=== PATIENT | female | born 1950 | race Caucasian/White ===

== ENCOUNTER 2018-03-08 12:57 | Emergency (ER) | payer MEDICARE, SELFPAY ==
[2018-03-08 13:26] VITALS: BP 152/67; PULSE 78; RESP 18; TEMP 36.6
--- NOTE | 2018-03-08 14:27 | DI.RAD_ITS ---
SYMPTOM/DIAGNOSIS: PAIN, KNIFE INJURY LEFT HAND: Soft tissue laceration is seen. No foreign body or fracture is identified. Degenerative changes greatest of the first carpal/metacarpal joint. IMPRESSION: Soft tissue laceration.
[2018-03-08] MEDS: Lidocaine/Epinephri/Tetracaine Topical Gel 3 ML TP (14:44)
--- NOTE | 2018-03-08 15:23 | DI.VRAD_ITS ---
EXAM: XR Left Hand Complete, 3 or more Views EXAM DATE/TIME: 03/08/2018 2:28 PM CLINICAL HISTORY: 68 years old, female; Pain; Hand; Left TECHNIQUE: XR Left hand 3 or more views. COMPARISON: No relevant prior studies available. FINDINGS: Bones/joints: Diffuse osteopenia. No fracture or dislocation. 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 Soft tissues: Laceration of the hand adjacent to the second metacarpal distal metaphysis. No radiopaque metallic foreign body. IMPRESSION: 1. Soft tissue laceration. 2. No fracture. Dictated and Authenticated by: Giovanny Kate MD. Ordering:TRINIDAD Langley MD
--- NOTE | 2018-03-08 16:04 | W.ED.GENAD ---
Discharge Plan Disposition Patient Disposition: HOME Discharge Details Chief Complaint: Laceration Clinical Impression: Laceration of left hand, Syncope Reason For Visit: lac / fainted vomited Primary Care Provider: Eliezer Pimentel ED Provider: Shivam Berger Home Meds and New Rx's Prescriptions: Continued aspirin 325 mg Tablet 325 mg PO DAILY AM RF: 0 cetirizine [Zyrtec] 10 mg Tablet 10 mg PO RF: 0 Discharge Instructions Instructions: Laceration (ED), Syncope (ED) Additional Instructions: Please follow-up with your primary care physician. Call on Saturday to schedule an appointment. Return to the emergency department or see your primary care physician for suture removal in 10-12 days. Keep wound clean and dry. Return to the ER for any worsening or new concerning symptoms. Referrals: Eliezer Pimentel MD [Primary Care Provider] - Discharge Data Discharge Date/Time-TO BE ENTERED AT DEPARTURE: 03/08/18 16:15 Medical Decision Making 68-year-old female presents after puncture wound to her left hand and then syncopal episode while she was rinsing it out. Digital nerve function intact. digital flexor tendons intact. Suspect vagal induced syncope. Screening EKG was reviewed and interpreted by me: Normal sinus rhythm 74 bpm, normal axis, [place] interval 192, QTC 433, nondiagnostic. X-ray of the left hand was reviewed and interpreted by radiology: Soft tissue laceration, no fracture, no radiopaque metallic foreign body. Wound was anesthetized with topical LET, irrigated with copious sterile saline and explored. Primary closure was performed without complication. Patient was observed here in the emerge department and had no recurrent dizziness or syncope. Disposition decision was made weighing the risks and benefits of hospitalization versus outpatient treatment, the risk for further decompensation, and the patient's wishes. The patient was stable and requested discharge. Prior to discharge, my usual and customary return precautions were reviewed with the patient - this included follow-up instructions and reason to return to the emergency department if condition worsens, does not improve as expected, or other new concerns arise. HPI General Mode of arrival: ambulatory. Date/Time Provider Initiated Documentation: 03/08/18 14:13. Limitations to Documentation: no limitations. Information obtained by: patient. HPI Narrative: 68-year-old female presents after puncture wound to her left hand and then syncopal episode while she was rinsing it out. Patient states she cut her left hand with a steak knife accidentally by 1-2 hours prior to arrival. She attempted to irrigate the wound with tap water and suddenly felt faint. She sat down in a chair, had brief loss of consciousness with vomiting. Patient took a brief nap after the episode and then sought care here. She denies associated chest pain. No shortness of breath. No leg swelling or calf pain. No palpitations. No headache or focal numbness or weakness. No abdominal pain. Wound was bleeding. Bleeding moderate and now stopped. Related Data Home Medications Medication Instructions Recorded Confirmed aspirin 325 mg PO DAILY AM 03/08/18 03/08/18 cetirizine [Zyrtec] 10 mg PO 03/08/18 General Stated Complaint: Laceration MITA: 3 Review of Systems Review of Systems All systems reviewed & are unremarkable except as noted in HPI and below PFSH Social History Smoking and Tabacco status: Former Tobacco Use Exam Const General: cooperative and no acute distress HENMT Head: normocephalic and atraumatic Mouth: moist mucous membranes Eyes Conjunctivae: normal conjunctivae Sclera: normal sclerae EOM: EOM intact bilaterally Neck Neck: trachea midline and supple Resp Auscultation: clear to auscultation bilaterally, no rales, no rhonchi and no wheezes Cardio Jugular venous pressure: no JVD Rate: regular rate and not tachycardic Rhythm: regular rhythm GI Palpation: soft, not firm, no guarding, no masses, not rigid and nontender Skin General skin exam: no rashes or lesions noted Neuro General: alert, awake, oriented x3 and tone normal Extrem General: no calf tenderness bilaterally and no edema Left upper extremity: hand Details: normal capillary refill, neuromotor exam normal, neurosensory exam normal, tendon exam normal, normal ROM of fingers and laceration (1cm palmar) Course Vital Signs Temperature 36.6 C 03/08/18 13:26 Pulse 78 03/08/18 13:26 Respiratory Rate 18 03/08/18 13:26 Blood Pressure 152/67 H 03/08/18 13:26 Temperature 36.6 C 03/08/18 13:26 Temperature Source Temporal Artery Scan 03/08/18 13:26 Pulse 78 03/08/18 13:26 Respiratory Rate 18 03/08/18 13:26 Respiratory Effort 03/08/18 13:32 Blood Pressure 152/67 H 03/08/18 13:26 Blood Pressure Position Sitting 03/08/18 13:26 Oxygen Delivery Method Room Air 03/08/18 13:26 Oxygen Flow Rate 0 03/08/18 13:26 Pain Level 5 03/08/18 15:43 Procedures Laceration Laceration 1: Site: hand Side (If applicable): left Size (cm): 1 Description: linear Depth: simple, single layer Local Anesthetic: other anesthetic Pre-repair: wound explored, irrigated extensively and deep structures intact Skin layer closed with: other (proline) Size (cm): 5-0 Number of sutures: 2 Technique: simple, interrupted
--- NOTE | 2018-03-08 16:08 | ED.GENADUL_ITS ---
Discharge Plan Disposition Patient Disposition: HOME Discharge Details Chief Complaint: Laceration Clinical Impression: Laceration of left hand, Syncope Reason For Visit: lac / fainted vomited Primary Care Provider: Eliezer Pimentel ED Provider: Shivam Berger Home Meds and New Rx's Prescriptions: Continued aspirin 325 mg Tablet 325 mg PO DAILY AM RF: 0 cetirizine [Zyrtec] 10 mg Tablet 10 mg PO RF: 0 Discharge Instructions Instructions: Laceration (ED), Syncope (ED) Additional Instructions: Please follow-up with your primary care physician. Call on Saturday to schedule an appointment. Return to the emergency department or see your primary care physician for suture removal in 10-12 days. Keep wound clean and dry. Return to the ER for any worsening or new concerning symptoms. Referrals: Eliezer Pimentel MD [Primary Care Provider] - Discharge Data Discharge Date/Time-TO BE ENTERED AT DEPARTURE: 03/08/18 16:15 Medical Decision Making 68-year-old female presents after puncture wound to her left hand and then syncopal episode while she was rinsing it out. Digital nerve function intact. digital flexor tendons intact. Suspect vagal induced syncope. Screening EKG was reviewed and interpreted by me: Normal sinus rhythm 74 bpm, normal axis, [place] interval 192, QTC 433, nondiagnostic. X-ray of the left hand was reviewed and interpreted by radiology: Soft tissue laceration, no fracture, no radiopaque metallic foreign body. Wound was anesthetized with topical LET, irrigated with copious sterile saline and explored. Primary closure was performed without complication. Patient was observed here in the emerge department and had no recurrent dizz iness or syncope. Disposition decision was made weighing the risks and benefits of hospitalization versus outpatient treatment, the risk for further decompensation, and the patient's wishes. The patient was stable and requested discharge. Prior to discharge, my usual and customary return precautions were reviewed with the patient - this included follow-up instructions and reason to return to the emergency department if condition worsens, does not improve as expected, or other new concerns arise. HPI General Mode of arrival: ambulatory . Date/Time Provider Initiated Documentation: 03/08/18 14:13 . Limitations to Documentation: no limitations . Information obtained by: patient . HPI Narrative: 68-year-old female presents after puncture wound to her left hand and then syncopal episode while she was rinsing it out. Patient states she cut her left hand with a steak knife accidentally by 1-2 hours prior to arrival. She attempted to irrigate the wound with tap water and suddenly felt faint. She sat down in a chair, had brief loss of consciousness with vomiting. Patient took a brief nap after the episode and then sought care here. She denies associated chest pain. No shortness of breath. No leg swelling or calf pain. No palpitations. No headache or focal numbness or weakness. No abdominal pain. Wound was bleeding. Bleeding moderate and now stopped. Related Data Home Medications Medication Instructions Recorded Confirmed aspirin 325 mg PO DAILY AM 03/08/18 03/08/18 cetirizine [Zyrtec] 10 mg PO 03/08/18 General Stated Complaint: Laceration MITA: 3 Review of Systems Review of Systems All systems reviewed & are unremarkable except as noted in HPI and below PFSH Social History Smoking and Tabacco status: Former Tobacco Use Exam Const General: cooperative and no acute distress HENMT Head: normocephalic and atraumatic Mouth: moist mucous membranes Eyes Conjunctivae: normal conjunctivae Sclera: normal sclerae EOM: EOM intact bilaterally Neck Neck: trachea midline and supple Resp Auscultation: clear to auscultation bilaterally, no rales, no rhonchi and no wheezes Cardio Jugular venous pressure: no JVD Rate: regular rate and not tachycardic Rhythm: regular rhythm GI Palpation: soft, not firm, no guarding, no masses, not rigid and nontender Skin General skin exam: no rashes or lesions noted Neuro General: alert, awake, oriented x3 and tone normal Extrem General: no calf tenderness bilaterally and no edema Left upper extremity: hand Details: normal capillary refill, neuromotor exam normal, neurosensory exam normal, tendon exam normal, normal ROM of fingers and laceration (1cm palmar) Course Vital Signs Temperature 36.6 C 03/08/18 13:26 Pulse 78 03/08/18 13:26 Respiratory Rate 18 03/08/18 13:26 Blood Pressure 152/67 H 03/08/18 13:26 Temperature 36.6 C 03/08/18 13:26 Temperature Source Temporal Artery Scan 03/08/18 13:26 Pulse 78 03/08/18 13:26 Respiratory Rate 18 03/08/18 13:26 Respiratory Effort 03/08/18 13:32 Blood Pressure 152/67 H 03/08/18 13:26 Blood Pressure Position Sitting 03/08/18 13:26 Oxygen Delivery Method Room Air 03/08/18 13:26 Oxygen Flow Rate 0 03/08/18 13:26 Pain Level 5 03/08/18 15:43 Procedures Laceration Laceration 1: Site: hand Side (If applicable): left Size (cm): 1 Description: linear Depth: simple, single layer Local Anesthetic: other anesthetic Pre-repair: wound explored, irrigated extensively and deep structures intact Skin layer closed with: other (proline) Size (cm): 5-0 Number of sutures: 2 Technique: simple, interrupted
== END 2018-03-08 16:15 | disposition home or self-care (01) ==
PROVIDERS: Emergency Provider Student in an Organized Health Care Education/Training Program; PCP General Practice
DX: S61.412A Laceration without foreign body of left hand, initial encounter (principal); R55 Syncope and collapse; W26.0XXA Contact with knife, initial encounter
CPT/HCPCS: 12001; 90471; 93005; 99283; 73130; 93010

== ENCOUNTER 2019-03-03 10:57 | Emergency (ER) | payer MEDICARE, SELFPAY ==
[2019-03-03 11:04] VITALS: BP 147/73; PULSE 97; RESP 16; TEMP 36.6; O2SAT 95
--- NOTE | 2019-03-03 11:55 | DI.RAD_ITS ---
EXAM: XR HIP PELVIS ADULT BL CLINICAL HISTORY: right groin pain TECHNIQUE: COMPARISON: No exams were available for comparison FINDINGS: Three views were obtained. Cartilaginous joint spaces of hips are fairly well maintained. Mild subc hondral sclerosis of the acetabula and femoral heads bilaterally. Moderate marginal osteophyte forma tion of the acetabula noted. No additional significant bony findings. IMPRESSION: Moderate DJD both hips, no other significant findings.
--- NOTE | 2019-03-03 11:58 | DI.RAD_ITS ---
EXAM: XR LUMBAR SPINE COMPLETE CLINICAL HISTORY: pain TECHNIQUE: COMPARISON: No exams were available for comparison FINDINGS: Five views were obtained. There is a moderate to severe right convex lumbar scoliosis. There is dis c space narrowing at L5-S1. Otherwise the intervertebral disc spaces appear fairly well maintained. No compression fracture seen. Severe hypertrophic degenerative changes noted involving the facet louann ints throughout the lumbar region. No evidence of spondylolysis or spondylolisthesis. Mild DJD noted involving both SI joints. IMPRESSION: Scoliosis and severe degenerative change, no evidence of acute fracture.
[2019-03-03] MEDS: Acetaminophen 500 MG TAB 1000 MG PO (12:18)
--- NOTE | 2019-03-03 12:34 | ED.GENADUL_ITS ---
Discharge Plan Disposition Patient Disposition: HOME Condition: Good Discharge Details Chief Complaint: Orthopedic Clinical Impression: Back pain with sciatica Primary Care Provider: Florentin Elliott ED Provider: Iza Jason Home Meds and New Rx's Prescriptions: New methylprednisolone [Medrol (Rodriguez)] 4 mg tablets,dose pack See Rx Instructions .ROUTE .COMPLEX Qty: 21 RF: 0 No Action aspirin 325 mg Tablet 325 mg PO DAILY AM RF: 0 cetirizine [Zyrtec] 10 mg Tablet 10 mg PO RF: 0 Discharge Instructions Instructions: Sciatica (ED) Additional Instructions: Ice or heat to the back for discomfort. Use Medrol Dosepak as prescribed. Hold additional ibuprofen or Naprosyn Use Tylenol for pain relief 1000 mg 3 times a day. Rest activities as tolerated. Follow-up with orthopedics for reevaluation as well as PCP as discussed. Consider use of a cane or assistive devices as discussed. Return for any worsening, concerns or alarming symptoms sooner if needed. Specific alarming concerns involve numbness of both legs and groin, inability to control your bowels or bladder, leg weakness, fevers, inability to ambulate. Stand Alone Forms: Physical Therapy Referral Referrals: Vicente Amaral MD [ [facility] STAFF PHYSICIAN] - Medical Decision Making Is a 69-year-old patient presenting for complaints of back pain with radiation to the right groin and leg specifically to the thigh and very intermittently toward the martin. Patient reports onset of back pain when gardening in the fall. Was diagnosed with sciatica by PCP recommended to take Aleve. Aleve somewhat helpful for short period of time then on relieving of discomfort. Patient does report worsening right thigh pain, pain with ambulation specifically. Pain relieved at rest. Patient denies any lower leg swelling or calf pain. No incontinence of urine or stool, no bilateral numbness. No red flags or cauda equina symptoms. Patient is nontoxic-appearing. Patient has had no imaging of her spine since onset of pain. Again denies any new injury or trauma. X-rays of spine reveals severe degenerative changes as well as L5-S1, scoliosis. No obvious compression fractures. Patient prefers use of a single crutch. Crutches were adjusted appropriately for her height. I did encourage use of a cane. Encourage physical therapy follow-up as well as orthopedic follow-up. Medrol Dosepak prescribed to help alleviate inflammatory and sciatic radicular pain. Rice encouraged. Encouraged prompt follow-up with PCP. Nothing to indicate neurosurgical emergency today. The patient was stable and requested discharge. Prior to discharge, my usual and customary return precautions were reviewed with the patient - this included follow-up instructions and reasons to return to the Emergency Department if conditions worsens, does not improve as expected, or other new concerns arise. HPI General Date/Time Provider Initiated Documentation: 03/03/19 10:58 . HPI Narrative: Is a 69-year-old patient presenting for complaints of several months of back pain with radiating symptoms into the right thigh and groin. Patient reports onset of back pain developed while she was gardening in September or October. Patient reports she saw her PCP was diagnosed with sciatica advised to take Aleve. Patient reports she has been taking Aleve. Patient reports initially Aleve was somewhat helpful and now she reports no relief with use of Aleve. Patient reports increase in right leg pain now becoming difficult to tolerate. Patient reports pain in her back is mild with radiation to the right groin and right thigh. Very intermittent and occasional radiating symptoms into the martin. Patient reports no new injury or trauma. Patient denies ill feeling whatsoever. Denies abdominal pain. Denies incontinence of urine or stool. Denies any changes in appetite or bowel movements. Denies any urinary changes. Patient reports no pain at rest. Pain in the right groin and thigh are only when bearing weight. Patient denies associated numbness, tingling or weakness. Does report sensation of leg giving out when ambulating but attributes this to pain. Related Data Home Medications Medication Instructions Recorded Confirmed aspirin 325 mg PO DAILY AM 03/08/18 03/03/19 cetirizine [Zyrtec] 10 mg PO 03/08/18 methylprednisolone [Medrol (Rodriguez)] See Rx Instructions .ROUTE 03/03/19 .COMPLEX #21 dose pk Previous Rx's Medication Instructions Recorded methylprednisolone [Medrol (Rodriguez)] See Rx Instructions .ROUTE 03/03/19 .COMPLEX #21 dose pk Allergies Allergy/AdvReac Type Severity Reaction Status Date / Time No Known Allergies Allergy Unverified 03/03/19 11:08 General Stated Complaint: Orthopedic MITA: 4 Review of Systems All systems reviewed & are unremarkable except as noted in HPI and below Constitutional Constitutional: Denies chills, Denies fatigue, Denies fever(s), Denies headache(s) and Denies malaise ENT Ears, Nose, Mouth, and Throat: Denies headache(s) and Denies neck pain Musculoskeletal Musculoskeletal: Reports back pain, Denies deformity, Denies neck pain, Denies numbness and Denies tingling Neurologic Neurologic: Denies headache(s), Denies numbness, Denies tingling and Denies paresthesias Endocrine Endocrine: Denies fatigue [facility] Family History (Updated 01/14/19 @ 11:03 by Luigi Ortiz) Mother , age 88 Cancer Father , age 94 No problems noted. Sister No problems noted. Brother , age 64 No problems noted. Brother , age 74 No problems noted. Brother , age 93 No problems noted. Son No problems noted. Daughter No problems noted. Social History Smoking/Tobacco Use Status: Former Tobacco Use Alcohol Intake: current Alcohol Intake frequency: holidays/special occasions only Alcohol type: wine Drug use: Never Caregiver/Support person: No Household members: spouse and other Details: granddaughter Housing: house Pets and animals: Yes Pets and animals: dog(s) Sexually active: Yes Do you think of yourself as: straight/heterosexual Current gender identity: female What is your relationship status?: How often do you talk on the phone with friends or family?: three or more times per week How often do you get together with friends or relatives?: once per week How often do you attend jewish or orthodoxy services?: decline to answer Do you belong to any clubs or organized social groups?: no Panel score (0-1 are the most socially isolated patients): 2 What type of physical activity do you participate in: decline to answer Duration: decline to answer Frequency: decline to answer Kayleigh/Samaritan: No preference Special kayleigh needs: No Seatbelt use: always Drive intox or ride w/intox 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 Well hydrated. Alert and oriented. NECK: Normal visual inspection. FROM. Trachea midline. No Midline tenderness. MUSCULOSKELETAL: Limping Gait. FROM of all extremities. Straight leg raise intact bilaterally. No palpable tenderness of the right leg. DTRs intact and equal bilaterally. No foot drop. No swelling or edema of the lower extremities. No calf pain with palpation. Back: No cervical or thoracic tenderness with palpation. Mild lumbar midline tenderness with palpation. Abnormal curvature present, consistent with scoliosis. SKIN: Normal. Dry. No rashes. NEURO: Alert and awake. Speech clear. PSYCH: Normal affect. Cooperative. Course Vital Signs Vital signs: Vital Signs Temperature 36.6 C 03/03/19 11:04 Pulse 97 H 03/03/19 11:04 Respiratory Rate 16 03/03/19 11:04 Blood Pressure 147/73 H 03/03/19 11:04 Pulse Oximetry 95 03/03/19 11:04 Temperature 36.6 C 03/03/19 11:04 Temperature Source Skin 03/03/19 11:04 Pulse 97 H 03/03/19 11:04 Respiratory Rate 16 03/03/19 11:04 Respiratory Effort Non-Labored 03/03/19 11:04 Blood Pressure 147/73 H 03/03/19 11:04 Blood Pressure Position Sitting 03/03/19 11:04 Pulse Oximetry 95 03/03/19 11:04 Oxygen Delivery Method Room Air 03/03/19 11:04 Oxygen Flow Rate 0 03/03/19 11:04 Pain Level 9 03/03/19 11:04
== END 2019-03-03 12:58 | disposition home or self-care (01) ==
PROVIDERS: Emergency Provider Physician Assistant; PCP Family Medicine
DX: M54.41 Lumbago with sciatica, right side (principal)
CPT/HCPCS: 73521; 99284; 72110

== ENCOUNTER 2019-03-05 22:41 | Inpatient (IN) | payer MEDICARE, SELFPAY ==
[2019-03-05] VITALS (11 sets, daily range): BP systolic 156–189; BP diastolic 62–76; PULSE 77–93; RESP 12–23; TEMP 36.3; O2SAT 92–98
--- NOTE | 2019-03-05 01:41 | DI.RAD_ITS ---
EXAM: XR FEMUR RT CLINICAL HISTORY: trauma TECHNIQUE: COMPARISON: CT LOWER EXTREMITY RT WO from 03/06/2019 FINDINGS: Three views were obtained and show a mid femoral fracture. There is a question of poorly defined ivan ency of the femoral cortex and marrow at this site superimposed on the obvious fracture deformity. S uspicion of pathologic fracture. CT also confirmed this impression. IMPRESSION: Femoral diaphyseal fracture, probably pathologic.
--- NOTE | 2019-03-05 01:41 | DI.RAD_ITS ---
EXAM: XR PORTABLE CHEST AP CLINICAL HISTORY: trauma TECHNIQUE: COMPARISON: UPPER ABD WITH CONTRAST (P) from 06/22/2015 CT CHEST/ABD/PEL W from 03/06/2019 CT CHEST/ABD/PEL W from 03/06/2019 FINDINGS: Semi upright portable view of chest was obtained. Heart is not enlarged. There appear to be changes of COPD. Probable tortuosity of the thoracic aorta. Moderate scoliosis noted. No evidence of acute pneumothorax, consolidation, or pleural effusion. There is question of widening of the central mediastinum, please see accompanying CT chest report. IMPRESSION:
--- NOTE | 2019-03-05 22:47 | ED.GENADUL_ITS ---
Discharge Plan Disposition Patient Disposition: [facility] INPATIENT Condition: Fair Discharge Details Chief Complaint: Orthopedic Clinical Impression: Femur fracture, right Primary Care Provider: Florentin Elliott ED Provider: Chele Cardenas Home Meds and New Rx's Prescriptions: No Action aspirin 325 mg Tablet 325 mg PO DAILY AM RF: 0 cetirizine [Zyrtec] 10 mg Tablet 10 mg PO RF: 0 methylprednisolone [Medrol (Rodriguez)] 4 mg tablets,dose pack See Rx Instructions .ROUTE .COMPLEX Qty: 21 RF: 0 Medical Decision Making Patient presenting with right lower extremity injury status post slip and catching herself without falling. Probable midshaft femur fracture. She is neurovascularly intact and relatively comfortable. We will continue IV pain meds as needed. Will make n.p.o. and start fluids. EKG, chest x-ray, right femur, laboratory studies ordered. Wood will be placed. Laboratory studies significant for a white count of 14.7 likely related to the steroids just started. Chemistries unremarkable. Coags normal. Patient required re-dosing with morphine as well as Dilaudid. Wood placed. Patient still in significant amount of pain so elected to place her in traction. Once in traction using Rona device and receiving 2-1/2 mg of Valium patient much more comfortable. Will now be able to tolerate getting x-rays. X-ray of femur confirms clinical suspicion of midshaft femur fracture. 1 view chest x-ray unremarkable. Case discussed with orthopedics, Dr. Montenegro. He reviewed the films. Requesting true lateral hip, true lateral knee, CT scan of the femur. Would like patient admitted to medicine for clearance and plan surgery in the morning. Case discussed with hospitalist, Dr. Mazariegos. Because of the concern of possible pathological fracture given the mechanism and how the fracture appears on x-ray will scan chest abdomen pelvis to look for possible metastatic disease. Patient admitted to medicine service and is comfortable with her right leg in Rona traction. Lab Data Lab results reviewed: Yes I reviewed the patient's lab results. ECG Data Attestation: I personally reviewed and interpreted this ECG (s) as follows: Prior ECG tracings: not available for review Interpretation: Sinus rhythm at 86. Normal axis and intervals. Normal ST segments. HPI General Mode of arrival: EMS . Date/Time Provider Initiated Documentation: 03/05/19 22:47 . Limitations to Documentation: no limitations . Information obtained by: patient, EMS and old records reviewed . HPI Narrative: Patient presents to ED by ambulance with right leg injury. Patient has been having some back and hip pain and was seen here just couple of days ago. She was diagnosed with sciatica and put on a steroid. She is been using a cane to get around. She slipped on a wet floor tonight. She did not fall but in the process of catching herself felt a pop in her right lower extremity and had immediate pain. was there. She never actually fell. There was no loss of consciousness, chest pain, shortness of breath, other injury. EMS was called. She was being transported by basic however due to pain a seafood preparer intercept was called. She arrives here with IV in place and has had 75 mcg of fentanyl. Related Data Home Medications Medication Instructions Recorded Confirmed aspirin 325 mg PO DAILY AM 03/08/18 03/03/19 cetirizine [Zyrtec] 10 mg PO 03/08/18 methylprednisolone [Medrol (Rodriguez)] See Rx Instructions .ROUTE 03/03/19 .COMPLEX #21 dose pk Previous Rx's Medication Instructions Recorded methylprednisolone [Medrol (Rodriguez)] See Rx Instructions .ROUTE 03/03/19 .COMPLEX #21 dose pk Allergies Allergy/AdvReac Type Severity Reaction Status Date / Time No Known Allergies Allergy Unverified 03/03/19 11:08 General MITA: 4 Review of Systems Narrative: 11/24 Review of Systems completed and is negative except as stated above in HPI (Systems reviewed: Const, Eyes, ENT, Resp, CV, GI, , MSK, Skin, Neuro) [facility] Medical History No active medical problems (Acute) Surgical History S/P aorto-bifemoral bypass surgery (Chronic) Family History (Updated 01/14/19 @ 11:03 by Luigi Ortiz) Mother , age 88 Cancer Father , age 94 No problems noted. Sister No problems noted. Brother , age 64 No problems noted. Brother , age 74 No problems noted. Brother , age 93 No problems noted. Son No problems noted. Daughter No problems noted. Social History Smoking/Tobacco Use Status: Former Tobacco Use Alcohol Intake: current Alcohol Intake frequency: holidays/special occasions only Alcohol type: wine Drug use: Never Substance use type: does not use Caregiver/Support person: No Household members: spouse and other Details: granddaughter Housing: house Pets and animals: Yes Pets and animals: dog(s) Sexually active: Yes Do you think of yourself as: straight/heterosexual Current gender identity: female What is your relationship status?: How often do you talk on the phone with friends or family?: three or more times per week How often do you get together with friends or relatives?: once per week How often do you attend rastafari or jain services?: decline to answer Do you belong to any clubs or organized social groups?: no Panel score (0-1 are the most socially isolated patients): 2 What type of physical activity do you participate in: decline to answer Duration: decline to answer Frequency: decline to answer Kayleigh/Mosque: No preference Special kayleigh needs: No Seatbelt use: always Drive intox or ride w/intox 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 Elevated blood pressure. Normal heart rate and room air pulse oximetry. Const: WDWN female in NAD. HEENT: NC/AT. Normal facial exam. Eyes: Normal conjunctiva and sclera. Neck: Supple. Trachea midline. Lungs: Normal respiratory effort. Lungs are clear. Cor: RRR without murmur/gallop. Good distal pulses. GI: Soft. NT/ND. No guarding or rebound. Neuro: A+O x 3. Speech, mentation normal. No gross motor or sensory deficit. Ext: Deformity and tenderness with significant amount of swelling in the right mid thigh. She is neurovascularly intact distally. Skin: Warm and dry without wounds.
[2019-03-05] MEDS: MORPHine 10 MG/ML VIAL 2 MG IVP ×2 (23:00→23:15)
[2019-03-05] MEDS: Metoclopramide 10 MG/2 ML VIAL IVP (23:05)
[2019-03-05] MEDS: Normal Saline 50 ML 400 ML (23:05)
[2019-03-05] MEDS: Lactated Ringers 1,000 ML 150 ML IV (23:05)
[2019-03-05 23:18] LABS: HCT 40.4 % (36.0-46.0); HGB 13.3 g/dL (12.0-15.5); Mean Corp. HGB Concentration 32.9 g/dL (32.0-36.0); Mean Corpuscular Hemoglobin 29.8 pg (27.0-33.0); Mean Corpuscular Volume 90.4 fL (80-95); Mean Platelet Volume 10.1 fL (8.0-11.0); Platelet Count 244 x1000/uL (130-400); RBC 4.47 m/cumm (4.00-5.20); White Blood Cell Count 14.72 k/cumm (4.4-10.8)
[2019-03-05] MEDS: HYDROmorphone 2 MG/ML VIAL (23:25)
[2019-03-05 23:33] LABS: ALT 19 U/L (14-59); AST 17 U/L (15-37); Alkaline Phosphatase 131 U/L (46-116); Anion Gap 11.9 mmol/L (3-11); BUN 23 mg/dL (7-18); Bilirubin, Total 0.3 mg/dL (0.2-1.0); CO2 27.1 mmol/L (21.0-32.0); CREATININE 0.74 mg/dL (0.55-1.02); Calcium 9.5 mg/dL (8.5-10.1); Chloride 101 mmol/L (98-107); Glucose 137 mg/dL (74-106); Potassium 3.9 mmol/L (3.5-5.1); Sodium 140 mmol/L (136-145)
[2019-03-05 23:34] LABS: Prothrombin Time 10.4 sec (9.3-11.0)
[2019-03-05 23:44] LABS: PTT Activated 20.9 sec (21.0-31.4)
[2019-03-06] VITALS (53 sets, daily range): BP systolic 86–185; BP diastolic 35–90; PULSE 71–112; RESP 9–25; TEMP 36.2–38; O2SAT 85–99
[2019-03-06] MEDS: HYDROmorphone 2 MG/ML VIAL 0.5 MG IVP ×2 (00:21→01:53)
[2019-03-06] MEDS: diazePAM 10 MG/2 ML SYR (00:25)
[2019-03-06] MEDS: Ondansetron 4 MG/2 ML VIAL (00:48)
[2019-03-06 00:54] LABS: Bilirubin Negative (Negative); Blood Trace-intact (Negative); Clarity Clear (Clear); Glucose Negative (Negative); Ketones Trace mg/dL (Negative); Leukocyte Esterase Negative (Negative); Nitrite Negative (Negative); Specific Gravity >= 1.030 (1.005-1.025); Urobilinogen 0.2 EU/dL (Up TO 0.2)
[2019-03-06 00:58] LABS: Bacteria Rare HPF (Negative); C & S Indicated? No; Casts Negative LPF (Negative); Crystals Negative HPF (Negative); Epithelial Cells Rare HPF (Negative); Mucus Negative (Negative); RBC 0-2 HPF (0-2)
[2019-03-06 00:59] LABS: WBC Negative HPF (0-5)
--- NOTE | 2019-03-06 01:40 | NUR.NOTE ---
[id number]-Dr Cardenas placed pt rt leg in whitley traction with out incident. pt tolerates traction well Nursing Note:
--- NOTE | 2019-03-06 02:08 | DI.VRAD_ITS ---
PROCEDURE INFORMATION: Exam: XR Right Femur for Exam date and time: 03/05/2019 1:37 AM Age: 69 years old Clinical indication: Injury or trauma; Fall; Initial encounter; Fracture, traumatic; Closed fracture; Right; Shaft of the femur; Injury date: 03/05/19; Injury details: PT states she felt a sharp pain in her leg while walking and then fell. TECHNIQUE: Imaging protocol: XR Right femur. Views: 2 views. COMPARISON: No relevant prior studies available. FINDINGS: Bones/joints: Oblique minimally displaced and minimally angulated fracture through the midshaft of the femur. Demineralization. Hip and knee joints maintained. Soft tissues: Vascular calcifications. IMPRESSION: Fracture of the femur. Dictated and Authenticated by: Yuriy Ernandez MD. Ordering:LISA Elaine MD
[2019-03-06] MEDS: Omnipaque 350 MG/ML 100 ML BTL IJ (03:04)
--- NOTE | 2019-03-06 03:05 | DI.RAD_ITS ---
EXAM: XR FEMUR RT CLINICAL HISTORY: fx TECHNIQUE: COMPARISON: XR FEMUR RT from 03/06/2019 FINDINGS: Two views were obtained. Mid femoral fracture noted. No additional findings. Please see accompanyi ng CT report which indicated probable pathologic fracture. IMPRESSION:
--- NOTE | 2019-03-06 03:05 | DI.CT_ITS ---
EXAM: CT LOWER EXTREMITY RT WO CLINICAL HISTORY: right femur fracture TECHNIQUE: COMPARISON: No exams were available for comparison FINDINGS: CT examination of the right femur was performed utilizing multi slice acquisition and multiplanar rec onstruction. There is poorly defined lytic lesion of the femoral head suspicious for a pathologic le drake with minimal cortical deformity associated at this site but no gross fracture. There is an appa rent pathological femoral diaphyseal fracture with permeative changes in the femoral cortex at this s ite. Findings are highly suspicious for metastatic disease. Please see accompanying chest abdomen p hector CT report. IMPRESSION: Findings highly suggestive of pathologic fracture of diaphysis of the femur, suspect femoral head pat hologic lesion as well, likely metastatic lesions.
--- NOTE | 2019-03-06 03:05 | DI.CT_ITS ---
EXAM: CT CHEST/ABD/PEL W CLINICAL HISTORY: evaluate for metastatic disease,TRAUMA COMPARISON: UPPER ABD WITH CONTRAST (P) from 06/22/2015 FINDINGS: CT examination of the chest, abdomen, and pelvis was performed with intravenous infusion of 87 cc of Omnipaque 350. Patient has an apparent pathological fracture of the femur. Bony lytic lesions are seen on this CT at multiple locations, including right humeral head, probably left humeral head, mult iple areas in the spine including predominantly replacement of T12 vertebral body and large pedicle a nd lamina mass on the left at L4 as well as the right femoral head, and large right iliac lesion. Fi ndings are highly suggestive of widespread metastatic disease. There is a central and right hilar mediastinal mass with heterogeneous attenuation, highly suspicious for carcinoma, this is possibly the site of the primary tumor. Additionally there are numerous bila teral intrapulmonary, well-circumscribed nodules highly suggestive of metastatic disease. No focal c onsolidation seen. No pleural effusion seen. Mediastinal vascular structures grossly intact, no fadi dence of pulmonary embolic disease. There are multiple poorly defined hepatic lesions highly suspicious for metastatic disease, the large st in the right hepatic lobe posteriorly measuring roughly 4 cm in diameter. Spleen grossly unremark able. Pancreas appears intact. Adrenals and kidneys are unremarkable except for small bilateral non obstructing renal calculi. No biliary dilatation. Abdominal aorta and iliacs connected to graft. N o gross extravasation of contrast material. Widespread atheromatous change noted. Wood catheter in place in the urinary bladder. No gross bowel obstruction. No gross abdominal or pelvic adenopathy IMPRESSION: Presumed primary lung carcinoma involving central mediastinum, bilateral hilar nodes and azygos nodes with multiple intrapulmonary metastases, widespread bony metastases, and presumed hepatic metastases . Please see above discussion.
--- NOTE | 2019-03-06 03:14 | DI.VRAD_ITS ---
PROCEDURE INFORMATION: Exam: XR Chest, 1 View Exam date and time: 03/05/2019 1:38 AM Age: 69 years old Clinical indication: Injury or trauma; Fall; Initial encounter; Blunt trauma (contusions or hematomas); Injury date: 03/05/19 TECHNIQUE: Imaging protocol: XR of the chest Views: 1 view. COMPARISON: No relevant prior studies available. FINDINGS: Lungs: Hyperinflation. No consolidation. Pleural space: Unremarkable. No pleural effusion. No pneumothorax. Heart/Mediastinum: Unremarkable. No cardiomegaly. Diaphragm: Flattening of hemidiaphragms. Bones/joints: Convex left scoliosis of thoracic spine. IMPRESSION: 1. No acute findings. 2. Radiographic appearance consistent with the presence of COPD. Dictated and Authenticated by: Yuriy Ernandez MD. Ordering:LISA Elaine MD
--- NOTE | 2019-03-06 03:21 | DI.VRAD_ITS ---
PROCEDURE INFORMATION: Exam: XR Right Femur Exam date and time: 03/06/2019 2:29 AM Age: 69 years old Clinical indication: Injury or trauma; Fall; Initial encounter; Fracture, traumatic; Closed fracture; Right; Shaft of the femur; Injury date: 03/05/19; Additional info: True lateral views only per ortho md TECHNIQUE: Imaging protocol: XR Right femur. Views: 2 views. Cross-table true lateral view of the hip joint supplemented with portable true lateral view of the knee joint. COMPARISON: CR XR FEMUR RT 03/06/2019 1:25 AM FINDINGS: Bones/joints: Unremarkable. No acute fracture on images submitted for review. Note is made of midshaft femoral fracture on preceding study. No subluxation. Soft tissues: Vascular calcifications. IMPRESSION: Midshaft femur fracture demonstrated on preceding study. Dictated and Authenticated by: Yuriy Ernandez MD. Ordering:LISA Elaine MD
--- NOTE | 2019-03-06 03:22 | W.PM.HP.N ---
Date of service: 03/06/19 Time of Service: 03:22 Assessment and Plan Assessment and plan (1) Pathological fracture of femur in neoplastic disease: Status: Acute Assessment and plan: from CV standpoint, she is acceptable risk for operative repair of her comminuted right femur fracture (0.2 to 0.4% risk of perioperative [place] or per Revised Cardiac Risk Index and Geriatric Sensitive Perioperative Risk Index, however her overall prognosis is poor given the CT evidence for lung mass/nodules and lytic bone lesions of her femur head and humerus. However for pain control surgical stabilization of her fracture would seem best. Qualifiers: Encounter type: initial encounter Laterality: right Qualified Code(s): M84.551A - Pathological fracture in neoplastic disease, right femur, initial encounter for fracture (2) Right lower lobe lung mass: Status: Acute Assessment and plan: Once her femur fracture stabilized then a decision will need to be made about the best approach to diagnosing her primary cancer. Given her smoking history and evidence of COPD and the lung mass and multiple lung nodules on her CT scan the most likely primary source is lung cancer with bony mets. If the patient wishes to pursue work-up that an outpatient bronchoscopy can be arranged for tissue diagnosis. (3) Lung nodule, multiple: Status: Acute Assessment and plan: As above (4) Bone metastases: Status: Acute Assessment and plan: Continue narcotic analgesics of her bone pain. Will consult with palliative care to assist the patient with decision making regarding whether or not to pursue further work-up and palliative treatment of her metastatic cancer. History of Present Illness History of Present Illness Chief Complaint: right thigh pain Narrative: 69 female w/ PAD s/p ABF (1997) who was dx w/ sciatica in October but developed worsening low back pains this past week and was evaluated and treated for her sciatica here in [facility] ER on Saturday03/03/2019 and discharged home on medrol dose pack and referred to P.TYolande and Dr. Amaral. Tonight she was walking across her kitchen floor w/ assistance of cane in her left hand when she slipped and grabbed the kitchen counter w/ her right hand but did not hit the ground. Her right leg slid out from under her and she felt sharp pains in the mid thigh and she was unable to walk on the leg. Her and her granddaughter were unable to move her so EMS was called. X-ray reveales a comminuted mid femur fracture. She admits to OA, sciatica, scoliosis but denies any osteoporosis nor cancers. She is not chronically on corticosteroids but is currently on a medrol dose pack. Dr. Cardenas contacted Dr. Montenegro, orthopedic surgery who plans to perform ORIF of her femur fracture in the a.m. The patient denies any hx of [place], or CHF nor DM nor HTN although she has atherosclerotic peripheral vascular disease. She is a former smoker (quit in April 1997, formerly 20+ pack years). Review of Systems Constitutional Constitutional: Reports system reviewed and no additional complaints, except as docu Eyes Eyes: Reports requires corrective lenses ENT Ears, Nose, Mouth, and Throat: Reports system reviewed and no additional complaints, except as docu Cardiovascular Cardiovascular: Reports system reviewed and no additional complaints, except as docu Respiratory Respiratory: Reports system reviewed and no additional complaints, except as docu Gastrointestinal Gastrointestinal: Reports system reviewed and no additional complaints, except as docu Genitourinary Genitourinary: Reports system reviewed and no additional complaints, except as docu Musculoskeletal Musculoskeletal: Reports as per HPI and Reports back pain Integumentary/Breasts Skin/Breast: Reports system reviewed and no additional complaints, except as docu Neurologic Neurologic: Reports system reviewed and no additional complaints, except as docu Endocrine Endocrine: Reports system reviewed and no additional complaints, except as docu Hematologic/Lymphatic Hematologic/Lymphatic: Reports system reviewed and no additional complaints, except as docu Allergic/Immunologic Allergic/Immunologic: Reports system reviewed and no additional complaints, except as docu [facility] Medical History (Updated 03/06/19 @ 04:56 by Robb Mazariegos) Atherosclerotic peripheral vascular disease (Acute) No active medical problems (Acute) Osteoarthritis (Chronic) Surgical History S/P aorto-bifemoral bypass surgery (Chronic) Family History Mother , age 88 Cancer Father , age 94 No problems noted. Sister No problems noted. Brother , age 64 No problems noted. Brother , age 74 No problems noted. Brother , age 93 No problems noted. Son No problems noted. Daughter No problems noted. Social History Smoking/Tobacco Use Status: Former Tobacco Use Alcohol Intake: current Alcohol Intake frequency: holidays/special occasions only Alcohol type: wine Drug use: Never Substance use type: does not use Caregiver/Support person: No Household members: spouse and other Details: granddaughter Housing: house Pets and animals: Yes Pets and animals: dog(s) Sexually active: Yes Do you think of yourself as: straight/heterosexual Current gender identity: female What is your relationship status?: How often do you talk on the phone with friends or family?: three or more times per week How often do you get together with friends or relatives?: once per week How often do you attend mu-ism or methodist services?: decline to answer Do you belong to any clubs or organized social groups?: no Panel score (0-1 are the most socially isolated patients): 2 What type of physical activity do you participate in: decline to answer Duration: decline to answer Frequency: decline to answer Kayleigh/Yazidism: No preference Special kayleigh needs: No Seatbelt use: always Drive intox or ride w/intox jinriksha driver: No Do you feel safe at home: Yes Do you feel safe in your relationship?: Yes Meds Home Medications and Allergies Home Medications Medication Instructions Recorded Confirmed Type aspirin 325 mg PO DAILY AM 03/08/18 03/03/19 History cetirizine [Zyrtec] 10 mg PO 03/08/18 History methylprednisolone [Medrol (Rodriguez)] See Rx Instructions .ROUTE 03/03/19 Rx .COMPLEX #21 dose pk Allergies Allergy/AdvReac Type Severity Reaction Status Date / Time No Known Allergies Allergy Unverified 03/03/19 11:08 Exam Narrative Exam Narrative: Thin elderly female lying on the emergency room [facility] resting comfortably at the present time. She falls asleep in mid conversation. HEENT is unremarkable. Neck is supple nontender without JVD or thyromegaly. Carotid pulses are strong but with bilateral bruits. Lungs are clear to auscultation anteriorly with prolonged expiratory phase. Heart is regular rate and rhythm with a soft systolic ejection murmur over the aortic outflow tract. No thrill heave or gallop. Abdomen is soft and nontender without palpable masses. She has well-healed scar from her previous aortobifemoral bypass. Lower extremities feet are cool to the touch but without cyanosis. Pedal pulses are diminished but palpable. Right leg is in a traction brace. Results Imaging EKG: image reviewed (NSR w/out ischemic ST-T changes. normal EKG) Labs Result diagrams: 03/05/19 23:05 03/05/19 23:05 Labs: Laboratory Results - last 24 hr 03/05/19 03/05/19 03/05/19 23:05 23:05 23:05 WBC 14.72 H RBC 4.47 Hgb 13.3 Hct 40.4 MCV 90.4 MCH 29.8 MCHC 32.9 RDW 14.0 Plt Count 244 MPV 10.1 PT 10.4 INR 1.0 APTT 20.9 L Sodium 140 Potassium 3.9 Chloride 101 Carbon Dioxide 27.1 Anion Gap 11.9 H BUN 23 H Creatinine 0.74 Estimated GFR/1.73 m2 >= 60.00 Glucose 137 H Calcium 9.5 Total Bilirubin 0.3 AST 17 ALT 19 Alkaline Phosphatase 131 H Total Protein 8.0 Albumin 4.0 Urine Color Urine Clarity Urine pH Ur Specific [place] Urine Protein Urine Ketones Urine Blood Urine Nitrite Urine Bilirubin Urine Urobilinogen Ur Leukocyte Esterase Urine RBC Urine WBC Ur Epithelial Cells Urine Crystals Urine Bacteria Urine Casts Urine Mucus Ur Culture Indicated? Urine Glucose Patient ABO/Rh Antibody Screen 03/05/19 03/06/19 23:05 00:35 WBC RBC Hgb Hct MCV MCH MCHC RDW Plt Count MPV PT INR APTT Sodium Potassium Chloride Carbon Dioxide Anion Gap BUN Creatinine Estimated GFR/1.73 m2 Glucose Calcium Total Bilirubin AST ALT Alkaline Phosphatase Total Protein Albumin Urine Color Yellow Urine Clarity Clear Urine pH 6.0 Ur Specific [place] >= 1.030 H Urine Protein Negative Urine Ketones Trace H Urine Blood Trace-intact H Urine Nitrite Negative Urine Bilirubin Negative Urine Urobilinogen 0.2 Ur Leukocyte Esterase Negative Urine RBC 0-2 Urine WBC Negative Ur Epithelial Cells Rare Urine Crystals Negative Urine Bacteria Rare Urine Casts Negative Urine Mucus Negative Ur Culture Indicated? No Urine Glucose Negative Patient ABO/Rh O Positive Antibody Screen Negative Last Vital Signs Temp 36.3 C L 03/05/19 22:41 Pulse 96 H 03/06/19 03:06 Resp 15 03/06/19 03:10 BP 151/85 H 03/06/19 03:06 Pulse Ox 88 L 03/06/19 03:10
--- NOTE | 2019-03-06 04:04 | DI.VRAD_ITS ---
PROCEDURE INFORMATION: Exam: CT Right Lower Extremity Without Contrast; Thigh Exam date and time: 03/06/2019 2:40 AM Age: 69 years old Clinical indication: Injury or trauma; Fall; Initial encounter; Fracture, traumatic; Closed fracture; Right; Shaft of the femur; Injury date: 03/05/19; Injury details: Broke femur walking TECHNIQUE: Imaging protocol: CT of the Right lower extremity without contrast was performed. Exam focused on the thigh. Radiation optimization: All CT scans at this facility use at least one of these dose optimization techniques: automated exposure control; mA and/or kV adjustment per patient size (includes targeted exams where dose is matched to clinical indication); or iterative reconstruction. COMPARISON: CR XR FEMUR RT 03/06/2019 2:18 AM, concurrent CT of pelvis. FINDINGS: Bones/joints: There is a minimally displaced, angulated, oblique fracture of mid shaft of the femur. Multi appearance of cortex is demonstrated in the femur at level of fracture. Irregularly-shaped lucent lesion is demonstrated in femoral head with irregularly thickened sclerotic rim. No similar lesion demonstrated in left femoral head on concurrent CT of the pelvis. Soft tissues: Hematoma at fracture site. IMPRESSION: 1. Pathologic fracture mid shaft of femur. 2. Lytic metastasis cannot be excluded in the femoral head. Dictated and Authenticated by: Yuriy Ernandez MD. Ordering:LISA Elaine MD
--- NOTE | 2019-03-06 04:15 | DI.VRAD_ITS ---
PROCEDURE INFORMATION: Exam: CT Chest With Contrast Exam date and time: 03/06/2019 2:05 AM Age: 69 years old Clinical indication: Injury or trauma; Fall; Initial encounter; Generalized; Blunt trauma (contusions or hematomas); Injury date: 03/05/19; Prior surgery; Surgery date: 6+ months; Surgery type: Abdominal/vascular 20+ years ago; Additional info: Evaluate for metastatic disease TECHNIQUE: Imaging protocol: Computed tomography of the chest with intravenous contrast. Radiation optimization: All CT scans at this facility use at least one of these dose optimization techniques: automated exposure control; mA and/or kV adjustment per patient size (includes targeted exams where dose is matched to clinical indication); or iterative reconstruction. Contrast material: [id number]; Contrast volume: 87 ml; Contrast route: IV RTAC 18G; COMPARISON: CR XR HIP PELVIS ADULT BL 03/03/2019 11:55 AM FINDINGS: Lungs: Multiple predominantly peripheral lung nodules bilaterally. The largest is in right middle lobe measuring up to 1.7 cm. Dense atelectasis, mass or infiltrate in right lung base. Pleural space: No pneumothorax. No pleural effusion. Heart: There are coronary artery calcifications. No pericardial effusion. No pneumopericardium. Mediastinum: No pneumomediastinum. Aorta: No aortic aneurysm or dissection. Lymph nodes: Mediastinal and hilar adenopathy. No axillary adenopathy. Bones/joints: Asymmetric lucent lesion in right humeral head and proximal humeral shaft, incompletely imaged The spine demonstrates mild degenerative changes at multiple levels. Moderate compound thoracolumbar scoliosis with upper convexity directed to the left. Accentuation of thoracic kyphosis. No suspicious sclerotic or lucent bone lesions. No fracture. Soft tissues: Unremarkable. IMPRESSION: 1. Multiple lung nodules could represent metastases. 2. Mediastinal and hilar adenopathy. 3. Dense atelectasis, mass or infiltrate in right lower lobe. 4. Possible lytic metastasis in right humerus. 5. Coronary artery disease. PROCEDURE INFORMATION: Exam: CT Abdomen And Pelvis With Contrast Exam date and time: 03/06/2019 2:05 AM Age: 69 years old Clinical indication: Injury or trauma; Fall; Initial encounter; Generalized; Blunt trauma (contusions or hematomas); Injury date: 03/05/19; Prior surgery; Surgery date: 6+ months; Surgery type: Abdominal/vascular 20+ years ago; Additional info: Evaluate for metastatic disease TECHNIQUE: Imaging protocol: Computed tomography of the abdomen and pelvis with intravenous contrast. Radiation optimization: All CT scans at this facility use at least one of these dose optimization techniques: automated exposure control; mA and/or kV adjustment per patient size (includes targeted exams where dose is matched to clinical indication); or iterative reconstruction. Contrast material: [id number]; Contrast volume: 87 ml; Contrast route: IV RTAC 18G; COMPARISON: CR XR HIP PELVIS ADULT BL 03/03/2019 11:55 AM, concurrent CT examination of right femur FINDINGS: Liver: Multiple varying sized hypoenhancing liver lesions with poorly defined borders. The largest is in posterior segment right lobe and measures 2.5 cm. Gallbladder and bile ducts: Normal. No calcified stones. No ductal dilation. Pancreas: Parenchymal calcifications in head of the pancreas. No ductal dilatation. No peripancreatic inflammatory changes. Spleen: Normal. No splenomegaly. Adrenals: Normal. No mass. Kidneys and ureters: Normal. No hydronephrosis. Stomach and bowel: Unremarkable. No obstruction. No mucosal thickening. Appendix: Appendix is normal in appearance. No findings for appendicitis. Intraperitoneal space: No free intraperitoneal gas. No ascites. Vasculature: Status post aortobifemoral bypass grafting. Graft is patent. Lymph nodes: Unremarkable. No enlarged lymph nodes. Bladder: Wood catheter. Reproductive: Retroverted uterus. Bones/joints: 1.8 cm soft tissue lesion with bone destruction in right ilium, series 4, image 88. The spine demonstrates mild degenerative changes at multiple levels. Suspicious lucent lesion in right femoral head. Accentuation of lordosis. Soft tissues: Unremarkable. IMPRESSION: 1. Liver metastases. 2. Lytic metastasis in right ilium 3. Suspicious lucent lesion in right femoral head could represent a lytic metastasis. 4. Calcific pancreatitis. Dictated and Authenticated by: Yuriy Ernandez MD. Ordering:LISA Elaine MD
[2019-03-06] MEDS: Normal Saline Flush 10 ML SYR IVP ×3 (05:28→18:39)
[2019-03-06] MEDS: Lactated Ringers 1,000 ML 150 ML IV ×4 (05:28→23:44)
--- NOTE | 2019-03-06 07:29 | W.ORTHOCONSU ---
Date of service: 03/06/19 Time of Service: 09:54 History of Present Illness History of Present Illness Chief Complaint: Right thigh pain Narrative: Chief Complaint: Right thigh pain HPI: 69-year-old healthy active female with acute onset, atraumatic right thigh pain deformity and inability to bear weight. Severe pain sudden onset last night while ambulating normally. Prior history of approximately 6 months or greater of worsening right thigh discomfort and pain. Some rib low back pain as well. No known cause. Presented to emergency department 3 days ago and diagnosed with right lower extremity sciatica, unfortunately no imaging done of the right femur. Denies any bisphosphonates, prednisone, or known cancer diagnoses. Ambulated unlimited distance without assistive device. prior injury: No known attempted treatments: Field traction device provides great relief of pain and discomfort. When the emergency room attempted to remove this device the patient was in undue distress and it was reapplied by the ED physician. 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 No ongoing vascular issues of her lower extremities since that procedure. Prior to that intervention she had a 30+ year smoking history. Consult Reason Right femur pathologic fracture Assessment and Plan Assessment and plan (1) Pathological fracture of femur in neoplastic disease: Status: Acute Assessment and plan: 69 year-old female with atraumatic right pathologic femoral shaft fracture in the setting of metastatic bone disease including the lateral femoral head, lungs, mediastinum, liver, and widespread bony involvement. Discussed this metastatic cancer diagnosis with the patient, her , and son at length. We do not have a tissue diagnosis at this time, but likely metastatic lung cancer. Extremely unlikely primary bone sarcoma. No obvious breast or renal primary tumor. Unfortunate, this is a very complex and grave prognosis. I broke this news to the patient and her family. The patient is quite somnolent due to narcotic requirements from right femur fracture pain however is reportedly much more comfortable as long as the field splint remains in place. There is no skin breakdown at this time. I discussed the options including long cemented hemiarthroplasty versus cephalo-medullary intramedullary nailing of the femur. Would perform bone biopsy of fracture site through a lateral approach and plan to obtain frozen section to confirm carcinoma (over sarcoma) prior to reaming and instrumenting the entire femur. Would potentially adjunct femoral head fixation with a calcium phosphate bone void cement. Unfortunately, our facility does not have a pathologist on staff today and he is not here until Saturday of next week and 4 days time. I am hesitant to proceed with surgery today without the chance of obtaining a tissue preliminary diagnosis however I will do whatever is best for the family as treatment of her fracture in a relatively expedited fashion is compassionate and palliative. There is also the chance of obtaining a nondiagnostic biopsy at our facility. Orthopedic literature overwhelmingly supports transfer to a definitive tertiary care facility for biopsy and all care to avoid complications. The patient and family are considering the above options including transfer to [facility] versus surgical intervention by myself today. I have discussed the case with [facility] orthopedic oncologist Dr. Soto Luna who is more than happy to manage the patient should she be transferred there. Continue multimodal pain control. Bedrest. Field splint may remain in place with adequate padding for up to 24 hours. Nonweightbearing right lower extremity. Patient is high risk for blood clot given femur fracture and metastatic cancer?would recommend chemoprophylaxis as soon as we determine when any surgery will occur. Case discussed at length with admitting hospitalist Dr. Bacon who will pursue transfer on behalf of the patient. Please call if transfer is delayed for an extended period of time as I may perform the above stated palliative surgery for femur given all of our limitation at this facility for pain control at a sooner time point. Qualifiers: Encounter type: initial encounter Laterality: right Qualified Code(s): M84.551A - Pathological fracture in neoplastic disease, right femur, initial encounter for fracture (2) Bone metastases: Status: Acute Assessment and plan: As above Review of Systems Constitutional Constitutional: Denies chills and Denies fever(s) Eyes Eyes: Denies diplopia and Denies loss of vision ENT Ears, Nose, Mouth, and Throat: Denies dental pain and Denies other (cavities) Cardiovascular Cardiovascular: Denies chest pain with activity, Denies irregular heart rhythm and Denies dyspnea Respiratory Respiratory: Denies cough and Denies dyspnea Gastrointestinal Gastrointestinal: Denies nausea and Denies vomiting Musculoskeletal Musculoskeletal: Reports as per HPI Integumentary/Breasts Skin/Breast: Denies rash and Denies wounds Neurologic Neurologic: Reports as per HPI and Denies loss of vision Psychiatric Psychiatric: Denies anxiety and Denies depression Hematologic/Lymphatic Hematologic/Lymphatic: Denies easy bleeding and Denies easy bruising Allergic/Immunologic Allergic/Immunologic: Reports as per HPI [facility] Medical History Atherosclerotic peripheral vascular disease (Acute) No active medical problems (Acute) Osteoarthritis (Chronic) Surgical History S/P aorto-bifemoral bypass surgery (Chronic) Family History Mother , age 88 Cancer Father , age 94 No problems noted. Sister No problems noted. Brother , age 64 No problems noted. Brother , age 74 No problems noted. Brother , age 93 No problems noted. Son No problems noted. Daughter No problems noted. Social History Smoking/Tobacco Use Status: Former Tobacco Use Alcohol Intake: current Alcohol Intake frequency: holidays/special occasions only Alcohol type: wine Drug use: Never Substance use type: does not use Caregiver/Support person: No Household members: spouse and other Details: granddaughter Housing: house Pets and animals: Yes Pets and animals: dog(s) Sexually active: Yes Do you think of yourself as: straight/heterosexual Current gender identity: female What is your relationship status?: How often do you talk on the phone with friends or family?: three or more times per week How often do you get together with friends or relatives?: once per week How often do you attend islam or synagogue services?: decline to answer Do you belong to any clubs or organized social groups?: no Panel score (0-1 are the most socially isolated patients): 2 What type of physical activity do you participate in: decline to answer Duration: decline to answer Frequency: decline to answer Kayleigh/Orthodoxy: No preference Special kayleigh needs: No Seatbelt use: always 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 Do you feel safe at home: Yes Do you feel safe in your relationship?: Yes Exam Const General: healthy appearing, comfortable and no acute distress Orientation: not alert, not awake, not confused and other (Somnolent from pain medicine) Limitations: altered mental status (Somnolent from narcotics) and no language barrier HENLA Head: normocephalic and atraumatic Neck Neck: normal visual inspection and full ROM (Unable to participate in range of motion exam) Resp Effort & Inspection: normal respiratory effort, able to speak in complete sentences, no audible wheezes and no grunting General: deferred Skin General skin exam: no rashes or lesions noted Neuro General: not alert, not awake (In and out of sleeping due to narcotics for pain), not oriented x3 and unable to assess gait Cognition: abnormal cognition (Reportedly normal but somnolent now) Speech: speech abnormal (Minimally communicative while resting) Sensory Exam: no sensory deficits noted (None noted grossly throughout the right lower extremity but significantly limited by patient mental status at this time) Extrem Other: Right lower extremity field traction device in place. Skin protected by padding at groin and by ABD at ankle. All compartments soft. 1+ dorsalis pedis pulse. Distally demonstrates intact motor throughout the foot and toes. Completely sensory intact. No skin breakdown. No overlying skin changes about the thigh. Psych Appearance: grossly normal Mental Status: mental status grossly normal and other Speech and Movement: speech and movement normal Mood: other Affect: other Other: Unable to assess mood or affect as patient is somnolent Results Last Vital Signs Temp 99.0 F 03/06/19 05:29 Pulse 82 03/06/19 05:29 Resp 18 03/06/19 05:29 BP 173/73 H 03/06/19 05:29 Pulse Ox 95 03/06/19 05:29 Labs Result diagrams: 03/06/19 06:50 03/06/19 06:50 Labs: Laboratory Results - last 24 hr 03/05/19 03/05/19 03/05/19 23:05 23:05 23:05 WBC 14.72 H RBC 4.47 Hgb 13.3 Hct 40.4 MCV 90.4 MCH 29.8 MCHC 32.9 RDW 14.0 Plt Count 244 MPV 10.1 PT 10.4 INR 1.0 APTT 20.9 L Sodium 140 Potassium 3.9 Chloride 101 Carbon Dioxide 27.1 Anion Gap 11.9 H BUN 23 H Creatinine 0.74 Estimated GFR/1.73 m2 >= 60.00 Glucose 137 H Calcium 9.5 Total Bilirubin 0.3 AST 17 ALT 19 Alkaline Phosphatase 131 H Total Protein 8.0 Albumin 4.0 Urine Color Urine Clarity Urine pH Ur Specific [place] Urine Protein Urine Ketones Urine Blood Urine Nitrite Urine Bilirubin Urine Urobilinogen Ur Leukocyte Esterase Urine RBC Urine WBC Ur Epithelial Cells Urine Crystals Urine Bacteria Urine Casts Urine Mucus Ur Culture Indicated? Urine Glucose Patient ABO/Rh Antibody Screen 03/05/19 03/06/19 23:05 00:35 WBC RBC Hgb Hct MCV MCH MCHC RDW Plt Count MPV PT INR APTT Sodium Potassium Chloride Carbon Dioxide Anion Gap BUN Creatinine Estimated GFR/1.73 m2 Glucose Calcium Total Bilirubin AST ALT Alkaline Phosphatase Total Protein Albumin Urine Color Yellow Urine Clarity Clear Urine pH 6.0 Ur Specific [place] >= 1.030 H Urine Protein Negative Urine Ketones Trace H Urine Blood Trace-intact H Urine Nitrite Negative Urine Bilirubin Negative Urine Urobilinogen 0.2 Ur Leukocyte Esterase Negative Urine RBC 0-2 Urine WBC Negative Ur Epithelial Cells Rare Urine Crystals Negative Urine Bacteria Rare Urine Casts Negative Urine Mucus Negative Ur Culture Indicated? No Urine Glucose Negative Patient ABO/Rh O Positive Antibody Screen Negative Imaging Chest x-ray: report reviewed and image reviewed CT scan - chest: report reviewed and image reviewed EKG: report reviewed Additional studies: SPEP UPEP not done yet Alkaline phosphatase elevated Preserved LFTs Imaging Studies: Right femur x-rays and report independently reviewed: Concerning lytic lesion about the midshaft femur fracture site. Subtle lucencies in the superior weightbearing margin of this femoral head. CT right femur report and images independently reviewed: Lytic lesion about a relatively aligned midshaft femur fracture. Small to medium lytic lesions in the superior weightbearing portion of the femoral head as well as more inferiorly. Femoral neck relatively spared. No other skip lesions about the femur.
[2019-03-06 07:40] LABS: Abs Immature Grans 0.02 k/cumm (0.0-0.09); Absolute Lymphocyte Count 1.41 k/cumm (1.2-3.4); Basophils % 0.2; Eosinophils % 0.5; HCT 37.1 % (36.0-46.0); HGB 11.8 g/dL (12.0-15.5); Immature Grans % 0.2 %; Lymphocytes % 10.9; Mean Corp. HGB Concentration 31.8 g/dL (32.0-36.0); Mean Corpuscular Hemoglobin 29.3 pg (27.0-33.0); Mean Corpuscular Volume 92.1 fL (80-95); Mean Platelet Volume 10.8 fL (8.0-11.0); Monocytes % 7.6; Neutrophils % 80.6; Platelet Count 253 x1000/uL (130-400); RBC 4.03 m/cumm (4.00-5.20); White Blood Cell Count 12.97 k/cumm (4.4-10.8)
[2019-03-06 07:42] LABS: Absolute Basophil Count 0.03 k/cumm (0.0-0.2); Absolute Eosinophil Count 0.06 k/cumm (0.0-0.7); Absolute Monocyte Count 0.99 k/cumm (0.11-0.7); Absolute Neutrophil Count 10.45 k/cumm (1.2-6.7)
[2019-03-06 07:53] LABS: Anion Gap 7.9 mmol/L (3-11); BUN 19 mg/dL (7-18); CO2 29.1 mmol/L (21.0-32.0); CREATININE 0.72 mg/dL (0.55-1.02); Calcium 8.7 mg/dL (8.5-10.1); Chloride 104 mmol/L (98-107); Glucose 106 mg/dL (74-106); Potassium 3.9 mmol/L (3.5-5.1); Sodium 141 mmol/L (136-145)
[2019-03-06] MEDS: HYDROmorphone 2 MG/ML VIAL IV ×2 (08:01→18:08)
[2019-03-06] MEDS: Ondansetron 4 MG/2 ML VIAL IVP (08:02)
[2019-03-06] MEDS: Normal Saline 50 ML 400 ML (08:02)
--- NOTE | 2019-03-06 10:44 | PDOC.CMIN ---
- If Service Date Differs Date of service: 03/06/19 Time of Service: 10:44 Care Management Initial Assess REASON FOR HOSPITALIZATION:: Pathologic fracture of femur PAST MEDICAL HISTORY/PAST SURGICAL HISTORY:: Medical History: Atherosclerotic peripheral vascular disease (Acute). No active medical problems (Acute). Osteoarthritis (Chronic). Surgical History : S/P aorto-bifemoral bypass surgery (Chronic) PREVIOUS FUNCTIONAL STATUS/SOCIAL/FAMILY SUPPORTS:: Kayleigh lives with her Darrin and granddaughter Sisi in a single family home in [place], [place] 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 CURRENT FUNCTIONAL STATUS:: Kayleigh was in the OR much of the day and SIMRAN was not able to meet with her personally. CM visited with her son and daughter in law who provided much of the information. ADVANCE DIRECTIVES:: none on file Has patient been provided with information about the portal?: No Did the patient sign up for the portal?: No CODE STATUS:: Full Code INSURANCE COVERAGE / FINANCIAL ISSUES:: Medicare CURRENT HOME/COMMUNITY SERVICES/EQUIPMENT:: none currently PRIMARY CARE PHYSICIAN:: Florentin Fortune POTENTIAL DISCHARGE NEEDS:: Follow up with Oncology, PCP and discharge plan of care PATIENT/FAMILY EDUCATION NEEDS:: Discharge plan, limitations, follow up plan, Ask Me Three TRANSPORTATION:: To be determined by course of care
--- NOTE | 2019-03-06 13:48 | W.NUTCONSULT ---
Date of service: 03/06/19 Time of Service: 13:48 Nutritional Consult ASSESSMENT: 69 year old female with pathological fracture of femur, with lung CA with mets to bone and liver. Currently NPO. BMI wnl. At high nutritional risk in view of recent findings/CA dx. Will follow and assist as needed. MONITORING AND EVALUATION: weight , po intake, labs Time Spent in Nutritional Counseling and Treatment: 0 time spent face to face
--- NOTE | 2019-03-06 13:50 | BONE_PTH ---
PATIENT: Kayleigh Swann LOC: U#:[id number] AGE/SX: 69/F ROOM: RE03/06/[address]: Robb Mazariegos : 1950 BED: A DIS: 03/09/2019 SPEC #: [id number] RECD: 03/06/19 17:15 STATUS: MANNY REQ #: [id number] CORAL: 03/06/19 13:[address]: Robb Mazariegos DEPT: Surgical Specimen RECD BY: Ananya Rogers ENTERED: 03/06/19 17:18 SP TYPE: Bone OTHR DR: Florentin Elliott MD [facility] Tissues: 1 - BONE BX/CURRETTE NOT PATH FRACTURE 2 - BONE BX/CURRETTE NOT PATH FRACTURE 3 - FROZEN SECTION EXAM Procedures: GROSS AND MICRO LEVEL 4 IMMUNOPEROXIDASE STAIN FROZEN SECTION EXAM DECALCIFICATION Comments: [id number]
--- NOTE | 2019-03-06 14:32 | DI.RAD_ITS ---
EXAM: XR HIP RT IN OR CLINICAL HISTORY: right hip fracture TECHNIQUE: 2D and realtime digital imaging was performed. Fluoroscopy was provided in the OR COMPARISON: No exams were available for comparison FINDINGS: C-arm fluoroscopy was utilized by Dr. Shi during open reduction and internal fixation of right fem oral fracture. Hard copies show apparent curettage fracture site and placement of intra medullary ro d with lag screws transfixing the femoral head and neck Fluoro time 204.7 seconds IMPRESSION:
[2019-03-06] MEDS: Bupivacaine 0.25% Pres-Free 30 ML VIAL (14:40)
--- NOTE | 2019-03-06 15:23 | W.PM.OP ---
Date of service: 03/06/19 Time of Service: 15:02 Operative Note Operative Note DATE OF PROCEDURE: 03/06/19 PRE-OP DIAGNOSIS: 1. Pathologic femoral shaft fracture 2. Lytic bone lesion femoral head POST-OP DIAGNOSIS: same PROCEDURE: 1. Bone biopsy right femoral shaft pathologic fracture 2. Right antegrade femur intramedullary nailing SURGEON: Devante Montenegro NURSE SUBSTANCE ABUSE: None None ANESTHESIA: GETA and local ESTIMATED BLOOD LOSS: 30 PATHOLOGY: other (Bone and soft tumor specimen from the femoral shaft fracture site) COMPLICATIONS: None Patient was transported to: PACU Patient's condition: stable Implants: Synthes titanium femoral recon nail, greater trochanteric entry 12 mm x 360 mm 6.5 mm recon screw by 85 mm length and 95 mm length 5.0 mm distal locking screws 42 mm in length and 48 mm in length Indications: Please see complete medical record for details. 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 The patient was transferred to the operating room table, the field traction splint was removed, and patient was positioned on the fracture table. Preoperative antibiotics were administered. All bony prominences were well-padded. The right femur was prepped and draped in the usual sterile fashion. The correct patient, procedure, and side of the procedure were all verified prior to incision. I began with the bone biopsy of the right midshaft femur pathologic fracture site. The lytic lesion was localized under fluoroscopic guidance. A small directly lateral longitudinal incision was made through the skin and IT band. A large pair of pituitary rongeurs were introduced to the fracture site and soft tissue samples were removed and placed into a sterile specimen cup. Care was taken to obtain samples from the center of the lytic lesion as well as the cortical bone edges. Once adequate specimen had been removed, it was sent to the pathology department for fresh frozen specimen review. The pathologist preliminary diagnosis is noted above. The femoral shaft fracture was closed reduced using traction and manual manipulation techniques. There was a good fracture mariscal to ensure proper rotation alignment at the fracture site and of the lower extremity. Incision was made proximal to the greater trochanter and the appropriate guidewire was inserted from the tip of the troches down the central proximal femoral canal. The opening entry reamer was then used. Ball-tipped guidewire was then introduced and sent to the fracture site. In order to obtain anatomic alignment at the fracture site, a bone hook was passed along the anterior margin of the femur and applied lateral directed force to the proximal fracture fragment. Once the fracture site was properly reduced, the guidewire was driven down to a central central position at the distal femoral physis. The depth gauge was used to measure implant length subtracting for desired compression. I reamed sequentially starting with 8.5 mm reamer taking care to maintain proper fracture site reduction throughout reamer passage. There was appropriate cortical chatter with the 13.5 mm reamer. A 12 mm diameter nail was selected with appropriate length and assembled on the back table with the cephalo-medullary screws checked through the jig prior to insertion over the guidewire into the proximal femur. The nail was passed to the fracture site and then passed the fracture site into the distal femur under fluoroscopic guidance with gentle mallet blows. The nail was checked for proper insertion depth at both the hip and the knee. Guidewire was removed. Cephalo-medullary recon fixation was selected to prophylax the entire femur and hip as this patient has metastatic bone disease and CT scan showed small lytic lesions in the superior and anterior femoral head. Care was taken to direct the recon guidewire in a more inferior and posterior position while still being cognizant of the center center ideal location. The guidewires were checked measured in the proper length pair of screws were inserted through the nail into the femoral head. The traction was let off and the nail was driven gently into the distal femoral component into the was good cortical contact. A perfect circles technique under fluoroscopic guidance was used to localize placement of 2 distal locking screws. Final AP and lateral fluoroscopy of the fracture site showed excellent alignment and proper placement of our intramedullary femur recon implant. All wounds were copiously irrigated with normal saline. Deep tissue was closed using 0 Vicryl in an interrupted fashion. Skin was closed using a combination of 2-0 Monocryl and 3-0 Monocryl in a buried interrupted fashion. All incisions were covered with skin glue followed by Telfa and Tegaderm dressing. The patient awoke from anesthesia without complication was transferred to recovery room in stable condition.
--- NOTE | 2019-03-06 15:26 | DI.RAD_ITS ---
EXAM: XR FEMUR RT CLINICAL HISTORY: Postop TECHNIQUE: COMPARISON: XR FEMUR RT from 03/06/2019 FINDINGS: Four views were obtained and show intramedullary gael in place in the femur with 2 fixation screws tra nsfixing the femoral head and neck. Pathological proximal diaphyseal fracture again noted. IMPRESSION:
--- NOTE | 2019-03-06 15:28 | W.PM.PROGNOT ---
Date of Service Date of service: 03/06/19 Time of Service: 15:30 Assessment and Plan Assessment and plan (1) Pathological fracture of femur in neoplastic disease: Status: Acute Assessment and plan: 69-year-old female postop day #0 status post right pathologic femur fracture bone biopsy and intramedullary nailing. 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 Follow-up final pathology middle of next week. Per primary medical team. See below recommendations: Right lower extremity weightbearing as tolerated with assist device as needed Physical therapy Out of bed Pain control- multimodal SCDs and WILIAN hose bilateral lower extremity Recommend chemo DVT prophylaxis starting 24 hours postoperatively assuming stable hemoglobin and continuing for 30 days. Patient is high risk for thrombotic event given metastatic cancer, femoral shaft fracture, and underlying vascular disease. Keep dressings in place and clean and dry until follow-up Anticipate discharge home in 1-2 nights with home health services including physical therapy as needed unless there is a medical or oncologic reason for transfer to a tertiary care facility versus outpatient follow-up. To be determined by primary medical team. Follow-up outpatient with Dr. Montenegro at [facility] in 2-3 weeks Postoperative care discussed with primary medical team Call if any questions or concerns Qualifiers: Encounter type: initial encounter Laterality: right Qualified Code(s): M84.551A - Pathological fracture in neoplastic disease, right femur, initial encounter for fracture Subjective Subjective Interval history since last seen: No acute events. Resting comfortably in the recovery room. Exam Const Other: Sleeping, resting comfortably Resp Effort & Inspection: normal respiratory effort, able to speak in complete sentences, no audible wheezes and no grunting Extrem Other: Right thigh All incisions clean, dry, and intact No erythema or drainage No signs dvt or infection NVI distally with BCR All compartments soft Objective Objective Clinical Data: Abnormal lab results 03/05/19 03/05/19 03/05/19 Range/Units 23:05 23:05 23:05 WBC 14.72 H (4.4-10.8) k/cumm Hgb (12.0-15.5) g/dL MCHC (32.0-36.0) g/dL Absolute Neutrophils (1.2-6.7) k/cumm Absolute Monocytes (0.11-0.7) k/cumm APTT 20.9 L (21.0-31.4) sec Anion Gap 11.9 H (3-11) mmol/L BUN 23 H (7-18) mg/dL Glucose 137 H (74-106) mg/dL Alkaline Phosphatase 131 H (46-116) U/L Ur Specific [place] (1.005-1.025) Urine Ketones (Negative) mg/dL Urine Blood (Negative) 03/06/19 03/06/19 03/06/19 Range/Units 00:35 06:50 06:50 WBC 12.97 H (4.4-10.8) k/cumm Hgb 11.8 L (12.0-15.5) g/dL MCHC 31.8 L (32.0-36.0) g/dL Absolute Neutrophils 10.45 H (1.2-6.7) k/cumm Absolute Monocytes 0.99 H (0.11-0.7) k/cumm APTT (21.0-31.4) sec Anion Gap (3-11) mmol/L BUN 19 H (7-18) mg/dL Glucose (74-106) mg/dL Alkaline Phosphatase (46-116) U/L Ur Specific [place] >= 1.030 H (1.005-1.025) Urine Ketones Trace H (Negative) mg/dL Urine Blood Trace-intact H (Negative) Vital Signs Temperature 97.2 F L 03/06/19 15:13 Temperature Source Tympanic 03/06/19 11:20 Pulse 78 03/06/19 15:13 Pulse Rhythm Regular 03/06/19 08:00 Pulse 82 03/06/19 04:30 Respiratory Rate 11 L 03/06/19 15:13 Respiratory Effort Non-Labored 03/06/19 08:00 Respiratory Depth Normal 03/06/19 08:00 Respiratory Pattern Normal 03/06/19 08:00 Blood Pressure 123/79 03/06/19 15:13 Blood Pressure Mean 82 03/06/19 04:01 Blood Pressure Position Sitting 03/05/19 22:41 Pulse Oximetry 96 03/06/19 15:13 Respiratory End-tidal CO2 34 03/06/19 15:13 Oxygen Delivery Method Nasal Cannula 03/06/19 15:13 Oxygen Flow Rate 4 03/06/19 15:13 Pain Level 0 03/06/19 15:13 Intake & Output 03/05/19 03/06/19 03/06/19 23:59 11:59 23:59 Intake Total 1008.5 / 2588.5 1580 / 2588.5 Output Total 850 / 930 80 / 930 Balance - 158.5 / 1658.5 1500 / 1658.5 Weight 110 lb 121 lb 14.65 oz Intake: IV 1008.5 / 2588.5 1580 / 2588.5 Output: Urine 850 / 900 50 / 900 Estimated Blood Loss Other: Urine Color Yellow Pale Yellow Yellow Urine Appearance Clear Clear Clear Comment catheter inserted via sterile technique without incident. Emesis Description None Laboratory Results WBC 12.97 k/cumm (4.4-10.8) H 03/06/19 06:50 RBC 4.03 m/cumm (4.00-5.20) 03/06/19 06:50 Hgb 11.8 g/dL (12.0-15.5) L 03/06/19 06:50 Hct 37.1 % (36.0-46.0) 03/06/19 06:50 MCV 92.1 fL (80-95) 03/06/19 06:50 MCH 29.3 pg (27.0-33.0) 03/06/19 06:50 MCHC 31.8 g/dL (32.0-36.0) L 03/06/19 06:50 RDW 14.0 % (11.7-14.6) 03/06/19 06:50 Plt Count 253 x1000/uL (130-400) 03/06/19 06:50 MPV 10.8 fL (8.0-11.0) 03/06/19 06:50 Immature Gran % 0.2 % 03/06/19 06:50 Neutrophils % 80.6 03/06/19 06:50 Lymphocytes % 10.9 03/06/19 06:50 Monocytes % 7.6 03/06/19 06:50 Eosinophils % 0.5 03/06/19 06:50 Basophils % 0.2 03/06/19 06:50 Absolute Neutrophils 10.45 k/cumm (1.2-6.7) H 03/06/19 06:50 Absolute Lymphocytes 1.41 k/cumm (1.2-3.4) 03/06/19 06:50 Absolute Monocytes 0.99 k/cumm (0.11-0.7) H 03/06/19 06:50 Absolute Eosinophils 0.06 k/cumm (0.0-0.7) 03/06/19 06:50 Absolute Basophils 0.03 k/cumm (0.0-0.2) 03/06/19 06:50 PT 10.4 sec (9.3-11.0) 03/05/19 23:05 INR 1.0 (0.9-1.1) 03/05/19 23:05 APTT 20.9 sec (21.0-31.4) L 03/05/19 23:05 Sodium 141 mmol/L (136-145) 03/06/19 06:50 Potassium 3.9 mmol/L (3.5-5.1) 03/06/19 06:50 Chloride 104 mmol/L (98-107) 03/06/19 06:50 Carbon Dioxide 29.1 mmol/L (21.0-32.0) 03/06/19 06:50 Anion Gap 7.9 mmol/L (3-11) 03/06/19 06:50 BUN 19 mg/dL (7-18) H 03/06/19 06:50 Creatinine 0.72 mg/dL (0.55-1.02) 03/06/19 06:50 Estimated GFR/1.73 m2 >= 60.00 (mL/min/1.73m2) 03/06/19 06:50 Glucose 106 mg/dL (74-106) 03/06/19 06:50 Calcium 8.7 mg/dL (8.5-10.1) 03/06/19 06:50 Magnesium 2.0 mg/dL (1.8-2.4) 03/06/19 06:50 Total Bilirubin 0.3 mg/dL (0.2-1.0) 03/05/19 23:05 AST 17 U/L (15-37) 03/05/19 23:05 ALT 19 U/L (14-59) 03/05/19 23:05 Alkaline Phosphatase 131 U/L (46-116) H 03/05/19 23:05 Total Protein 8.0 g/dL (6.4-8.2) 03/05/19 23:05 Albumin 4.0 g/dL (3.4-5.0) 03/05/19 23:05 Urine Color Yellow (Yellow) 03/06/19 00:35 Urine Clarity Clear (Clear) 03/06/19 00:35 Urine pH 6.0 (5-8) 03/06/19 00:35 Ur Specific [place] >= 1.030 (1.005-1.025) H 03/06/19 00:35 Urine Protein Negative mg/dL (Negative) 03/06/19:35 Urine Ketones Trace mg/dL (Negative) H 03/06/19 00:35 Urine Blood Trace-intact (Negative) H 03/06/19 00:35 Urine Nitrite Negative (Negative) 03/06/19 00:35 Urine Bilirubin Negative (Negative) 03/06/19:35 Urine Urobilinogen 0.2 EU/dL (Up TO 0.2) 03/06/19 00:35 Ur Leukocyte Esterase Negative (Negative) 03/06/19 00:35 Urine RBC 0-2 HPF (0-2) 03/06/19 00:35 Urine WBC Negative HPF (0-5) 03/06/19 00:35 Ur Epithelial Cells Rare HPF (Negative) 03/06/19 00:35 Urine Crystals Negative HPF (Negative) 03/06/19 00:35 Urine Bacteria Rare HPF (Negative) 03/06/19 00:35 Urine Casts Negative LPF (Negative) 03/06/19 00:35 Urine Mucus Negative (Negative) 03/06/19 00:35 Ur Culture Indicated? No 03/06/19 00:35 Urine Glucose Negative mg/dL (Negative) 03/06/19 00:35 Patient ABO/Rh O Positive 03/05/19 23:05 Antibody Screen Negative 03/05/19 23:05
--- NOTE | 2019-03-06 16:28 | PHARADMIT ---
Admission Pharmacy Clinical Review right femur fracture Code Status Full Code Current Weight 55.3 kg Renally Cleared and Narrow Therapeutic Index Meds Crcl ~51.75 mL/min current meds okay QTc Value / Action Taken QTc 435 BP Control, Fever BP 101/69 Electrolytes reviewed within normal limits DVT Prophylaxis none- will start 24 hours postop Opiate Usage / Scheduled Bowel Regimen Ordered prn/prn Plt/SCr for Heparin / Enoxaparin plt 253 SCr 0.72 INR for Warfarin n/a H/H stable, WBC/Bands h/h 11.8/37.1 wbc 12.97 Antibiotic appropriateness cefazolin Cultures and Sensitivities none Surgical ABX d/c within 24 hr yes, will d/c within 24 hours postop DM control / Insulin Dosing BG 106 none Heart Failure (Check EF%) (MIRIAM's, B-Block, Diuretics) none IV to PO Switch n/a Home Meds Reviewed yes Home Meds Not Ordered aspirin, cetirizine, methylprednisolone Comments pathology pending surgery today- femur intermedullary nailing
[2019-03-06] MEDS: ceFAZolin 1 GM/50 ML BAG IVPB (18:14)
--- NOTE | 2019-03-06 18:57 | W.PM.PROGNOT ---
Date of Service Date of service: 03/06/19 Time of Service: 16:45 Subjective Subjective Interval history since last seen: Patient seen postoperatively. Denied dizziness, chest pain, shortness of breath, nausea, vomiting. Was rather somnolent, but arousable and participated in discussion. I discussed the case and the findings in T12 and L4 with radiation oncology at [facility] - as long as the patient does not develop cord compression symptoms, she can have these lesions irradiated as outpatient. Should she develop these symptoms, inpatient radiation should be considered. For now, the patient is asymptomatic. She can be weight bearing as tolerated. Palliative care is consulted and will likely see the patient tomorrow. Objective Objective Clinical Data: Abnormal lab results 03/05/19 03/05/19 03/05/19 Range/Units 23:05 23:05 23:05 WBC 14.72 H (4.4-10.8) k/cumm Hgb (12.0-15.5) g/dL MCHC (32.0-36.0) g/dL Absolute Neutrophils (1.2-6.7) k/cumm Absolute Monocytes (0.11-0.7) k/cumm APTT 20.9 L (21.0-31.4) sec Anion Gap 11.9 H (3-11) mmol/L BUN 23 H (7-18) mg/dL Glucose 137 H (74-106) mg/dL Alkaline Phosphatase 131 H (46-116) U/L Ur Specific [place] (1.005-1.025) Urine Ketones (Negative) mg/dL Urine Blood (Negative) 03/06/19 03/06/19 03/06/19 Range/Units 00:35 06:50 06:50 WBC 12.97 H (4.4-10.8) k/cumm Hgb 11.8 L (12.0-15.5) g/dL MCHC 31.8 L (32.0-36.0) g/dL Absolute Neutrophils 10.45 H (1.2-6.7) k/cumm Absolute Monocytes 0.99 H (0.11-0.7) k/cumm APTT (21.0-31.4) sec Anion Gap (3-11) mmol/L BUN 19 H (7-18) mg/dL Glucose (74-106) mg/dL Alkaline Phosphatase (46-116) U/L Ur Specific [place] >= 1.030 H (1.005-1.025) Urine Ketones Trace H (Negative) mg/dL Urine Blood Trace-intact H (Negative) Vital Signs Temperature 37.2 C 03/06/19 17:00 Temperature Source Tympanic 03/06/19 17:00 Pulse 71 03/06/19 17:00 Pulse Rhythm Regular 03/06/19 16:34 Pulse 82 03/06/19 04:30 Respiratory Rate 16 03/06/19 17:00 Respiratory Effort Non-Labored 03/06/19 08:00 Respiratory Depth Normal 03/06/19 08:00 Respiratory Pattern Normal 03/06/19 08:00 Blood Pressure 103/58 L 03/06/19 17:00 Blood Pressure Mean 82 03/06/19 04:01 Blood Pressure Position Sitting 03/05/19 22:41 Pulse Oximetry 94 L 03/06/19 17:00 Respiratory End-tidal CO2 38 03/06/19 15:55 Oxygen Delivery Method Nasal Cannula 03/06/19 17:00 Oxygen Flow Rate 3 03/06/19 17:00 Pain Level 7 03/06/19 18:08 Comment 03/06/19 17:00 Intake & Output 03/05/19 03/06/19 03/06/19 23:59 11:59 23:59 Intake Total 1008.5 / 2863.5 1855 / 2863.5 Output Total 850 / 930 80 / 930 Balance - 158.5 / 1933.5 1775 / 1933.5 Weight 49.895 kg 55.3 kg Intake: IV 1008.5 / 2863.5 1855 / 2863.5 Output: Urine 850 / 900 50 / 900 Estimated Blood Loss 30 / 30 Other: Urine Color Yellow Pale Yellow Yellow Urine Appearance Clear Clear Clear Comment catheter inserted via sterile technique without incident. Emesis Description None Laboratory Results WBC 12.97 k/cumm (4.4-10.8) H 03/06/19 06:50 RBC 4.03 m/cumm (4.00-5.20) 03/06/19 06:50 Hgb 11.8 g/dL (12.0-15.5) L 03/06/19 06:50 Hct 37.1 % (36.0-46.0) 03/06/19 06:50 MCV 92.1 fL (80-95) 03/06/19 06:50 MCH 29.3 pg (27.0-33.0) 03/06/19 06:50 MCHC 31.8 g/dL (32.0-36.0) L 03/06/19 06:50 RDW 14.0 % (11.7-14.6) 03/06/19 06:50 Plt Count 253 x1000/uL (130-400) 03/06/19 06:50 MPV 10.8 fL (8.0-11.0) 03/06/19 06:50 Immature Gran % 0.2 % 03/06/19 06:50 Neutrophils % 80.6 03/06/19 06:50 Lymphocytes % 10.9 03/06/19 06:50 Monocytes % 7.6 03/06/19 06:50 Eosinophils % 0.5 03/06/19 06:50 Basophils % 0.2 03/06/19 06:50 Absolute Neutrophils 10.45 k/cumm (1.2-6.7) H 03/06/19 06:50 Absolute Lymphocytes 1.41 k/cumm (1.2-3.4) 03/06/19 06:50 Absolute Monocytes 0.99 k/cumm (0.11-0.7) H 03/06/19 06:50 Absolute Eosinophils 0.06 k/cumm (0.0-0.7) 03/06/19 06:50 Absolute Basophils 0.03 k/cumm (0.0-0.2) 03/06/19 06:50 PT 10.4 sec (9.3-11.0) 03/05/19 23:05 INR 1.0 (0.9-1.1) 03/05/19 23:05 APTT 20.9 sec (21.0-31.4) L 03/05/19 23:05 Sodium 141 mmol/L (136-145) 03/06/19 06:50 Potassium 3.9 mmol/L (3.5-5.1) 03/06/19 06:50 Chloride 104 mmol/L (98-107) 03/06/19 06:50 Carbon Dioxide 29.1 mmol/L (21.0-32.0) 03/06/19 06:50 Anion Gap 7.9 mmol/L (3-11) 03/06/19 06:50 BUN 19 mg/dL (7-18) H 03/06/19 06:50 Creatinine 0.72 mg/dL (0.55-1.02) 03/06/19 06:50 Estimated GFR/1.73 m2 >= 60.00 (mL/min/1.73m2) 03/06/19 06:50 Glucose 106 mg/dL (74-106) 03/06/19 06:50 Calcium 8.7 mg/dL (8.5-10.1) 03/06/19 06:50 Magnesium 2.0 mg/dL (1.8-2.4) 03/06/19 06:50 Total Bilirubin 0.3 mg/dL (0.2-1.0) 03/05/19 23:05 AST 17 U/L (15-37) 03/05/19 23:05 ALT 19 U/L (14-59) 03/05/19 23:05 Alkaline Phosphatase 131 U/L (46-116) H 03/05/19 23:05 Total Protein 8.0 g/dL (6.4-8.2) 03/05/19 23:05 Albumin 4.0 g/dL (3.4-5.0) 03/05/19 23:05 Urine Color Yellow (Yellow) 03/06/19 00:35 Urine Clarity Clear (Clear) 03/06/19 00:35 Urine pH 6.0 (5-8) 03/06/19 00:35 Ur Specific [place] >= 1.030 (1.005-1.025) H 03/06/19 00:35 Urine Protein Negative mg/dL (Negative) 03/06/19 00:35 Urine Ketones Trace mg/dL (Negative) H 03/06/19 00:35 Urine Blood Trace-intact (Negative) H 03/06/19 00:35 Urine Nitrite Negative (Negative) 03/06/19 00:35 Urine Bilirubin Negative (Negative) 03/06/19 00:35 Urine Urobilinogen 0.2 EU/dL (Up TO 0.2) 03/06/19 00:35 Ur Leukocyte Esterase Negative (Negative) 03/06/19 00:35 Urine RBC 0-2 HPF (0-2) 03/06/19 00:35 Urine WBC Negative HPF (0-5) 03/06/19 00:35 Ur Epithelial Cells Rare HPF (Negative) 03/06/19 00:35 Urine Crystals Negative HPF (Negative) 03/06/19 00:35 Urine Bacteria Rare HPF (Negative) 03/06/19 00:35 Urine Casts Negative LPF (Negative) 03/06/19 00:35 Urine Mucus Negative (Negative) 03/06/19 00:35 Ur Culture Indicated? No 03/06/19 00:35 Urine Glucose Negative mg/dL (Negative) 03/06/19 00:35 Patient ABO/Rh O Positive 03/05/19 23:05 Antibody Screen Negative 03/05/19 23:05
[2019-03-06] MEDS: Acetaminophen 325 MG TAB PO (23:40)
[2019-03-07] VITALS (17 sets, daily range): BP systolic 123–157; BP diastolic 65–73; PULSE 88–112; RESP 16–18; TEMP 36.6–37.5; O2SAT 88–99
[2019-03-07] MEDS: ceFAZolin 1 GM/50 ML BAG IVPB ×2 (01:48→09:23)
[2019-03-07] MEDS: Normal Saline Flush 10 ML SYR IVP ×2 (06:07→18:14)
[2019-03-07] MEDS: Lactated Ringers 1,000 ML 150 ML IV (06:07)
[2019-03-07] MEDS: HYDROmorphone 2 MG/ML VIAL IV ×2 (06:07→18:13)
[2019-03-07 07:02] LABS: Abs Immature Grans 0.02 k/cumm (0.0-0.09); Absolute Basophil Count 0.03 k/cumm (0.0-0.2); Absolute Eosinophil Count 0.52 k/cumm (0.0-0.7); Absolute Lymphocyte Count 1.05 k/cumm (1.2-3.4); Absolute Monocyte Count 1.12 k/cumm (0.11-0.7); Basophils % 0.4; Eosinophils % 6.6; HCT 32.3 % (36.0-46.0); HGB 10.2 g/dL (12.0-15.5); Immature Grans % 0.3 %; Lymphocytes % 13.4; Mean Corp. HGB Concentration 31.6 g/dL (32.0-36.0); Mean Corpuscular Hemoglobin 29.5 pg (27.0-33.0); Mean Corpuscular Volume 93.4 fL (80-95); Mean Platelet Volume 10.4 fL (8.0-11.0); Monocytes % 14.3; Platelet Count 199 x1000/uL (130-400); RBC 3.46 m/cumm (4.00-5.20); RBC Distribution Width 13.7 % (11.7-14.6); White Blood Cell Count 7.85 k/cumm (4.4-10.8)
[2019-03-07 07:15] LABS: Anion Gap 5.4 mmol/L (3-11); BUN 11 mg/dL (7-18); CO2 31.6 mmol/L (21.0-32.0); CREATININE 0.64 mg/dL (0.55-1.02); Calcium 7.9 mg/dL (8.5-10.1); Chloride 106 mmol/L (98-107); Glucose 107 mg/dL (74-106); Magnesium 1.7 mg/dL (1.8-2.4); Potassium 3.9 mmol/L (3.5-5.1); Sodium 143 mmol/L (136-145)
--- NOTE | 2019-03-07 08:43 | PGE_ITS ---
Date of Service Date of service: 03/07/19 Time of Service: 09:33 Assessment and Plan Assessment and plan (1) Pathological fracture of femur in neoplastic disease: Status: Acute Assessment and plan: 69-year-old female postop day #1 status post right pathologic femur fracture bone biopsy and intramedullary nailing. 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 Follow-up final pathology middle of next week. Clinically, patient doing well. Comfortable, awake and alert after stabilization of her pathologic right femur fracture. Hemoglobin stable. Good urinary output. Recommend discontinuing Wood catheter, IV fluid, and mobilizing patient today. Palliative care consultation to discuss long-term goals would likely be beneficial. Only concerning findings this morning are tachycardia and oxygen saturation, which raise concern for pulmonary embolism in this high risk patient. Discussed these findings with the with the patient and primary medical team who agree to obtain CTA chest. Anticoagulation will need to be a conversation with the patient, medical team, and possibly palliative care to ensure it is most appropriate and consistent with long-term goals. Would prefer to avoid injectable Lovenox although therapeutic or prophylactic Lovenox is typically the standard of care after femur fracture. Aspirin 325 mg once or twice a day is probably reasonable assuming a potentially higher blood clot risk but easier administration and lower hemorrhagic risk. Please update me with CTA results when they are available. Remainder of recommendations below? Right lower extremity weightbearing as tolerated with assist device as needed Physical therapy Out of bed Pain control- multimodal SCDs and WILIAN hose bilateral lower extremity Recommend chemo DVT prophylaxis starting 24 hours postoperatively assuming stable hemoglobin and continuing for 30 days. Patient is high risk for thrombotic event given metastatic cancer, femoral shaft fracture, and underlying vascular disease Keep dressings in place and clean and dry until follow-up Anticipate discharge home in 1-2 nights with home health services including physical therapy as needed unless there is a medical or oncologic reason for transfer to a tertiary care facility versus outpatient follow-up. Recommend outpatient referral to medical oncology as well as radiation oncology to be determined by primary medical team. Radiation oncology should consider treatment to the femoral shaft pathologic fracture as well as the whole femur and surgical site. Follow-up outpatient with Dr. Montenegro at [facility] orthopedics in 2-3 weeks Postoperative care discussed with primary medical team Call me directly if any questions or concerns. Otherwise, I plan to see the patient next as an outpatient. The patient and her family all have my personal cell phone number. Qualifiers: Encounter type: initial encounter Laterality: right Qualified Code(s): M84.551A - Pathological fracture in neoplastic disease, right femur, initial encounter for fracture Subjective Subjective Interval history since last seen: Feeling well. Much better than yesterday. Resting comfortably in bed. Denies any shortness of breath, fevers, chills, or chest pain. Exam Const General: cooperative, comfortable and no acute distress Orientation: alert, awake and not confused Limitations: mental status not altered and no language barrier HENMN Head: normocephalic and atraumatic Resp Effort & Inspection: normal respiratory effort, able to speak in complete sentences, no audible wheezes and no grunting Cardio Other: 2+ radial pulse. Regular. Tachycardic. No pedal edema. General: deferred Skin General skin exam: no rashes or lesions noted Neuro General: alert and awake Motor: muscle tone normal throughout (Except for limited right thigh strength) Sensory Exam: no sensory deficits noted Extrem Other: Right thigh All incisions clean, dry, and intact No erythema or drainage No calf or thigh tenderness or edema?no signs dvt or infection NVI distally with BCR Thigh compartments compressible Demonstrates 5 to 5 foot and ankle strength. Psych Appearance: grossly normal Mental Status: mental status grossly normal Speech and Movement: speech and movement normal Attitude: cooperative Objective Objective Clinical Data: Abnormal lab results 03/06/19 03/07/19 03/07/19 Range/Units 06:50 06:40 06:40 RBC 3.46 L (4.00-5.20) m/cumm Hgb 10.2 L (12.0-15.5) g/dL Hct 32.3 L (36.0-46.0) % MCHC 31.6 L (32.0-36.0) g/dL Absolute Lymphocytes 1.05 L (1.2-3.4) k/cumm Absolute Monocytes 1.12 H (0.11-0.7) k/cumm BUN 19 H (7-18) mg/dL Glucose 107 H (74-106) mg/dL Calcium 7.9 L (8.5-10.1) mg/dL Magnesium 1.7 L (1.8-2.4) mg/dL Vital Signs Temperature 98.2 F 03/07/19 08:15 Temperature Source Tympanic 03/07/19 08:15 Pulse 112 H 03/07/19 08:15 Pulse Rhythm Regular 03/07/19 00:11 Pulse 82 03/06/19 04:30 Respiratory Rate 18 03/07/19 08:15 Respiratory Effort Non-Labored 03/07/19 00:11 Respiratory Depth Normal 03/07/19 00:11 Respiratory Pattern Normal 03/06/19 08:00 Blood Pressure 136/65 03/07/19 08:15 Blood Pressure Mean 82 03/06/19 04:01 Blood Pressure Position Sitting 03/05/19 22:41 Pulse Oximetry 92 L 03/07/19 08:15 Respiratory End-tidal CO2 38 03/06/19 15:55 Oxygen Delivery Method Nasal Cannula 03/07/19 08:15 Oxygen Flow Rate 1 03/07/19 08:15 Pain Level 3 03/07/19 08:15 Comment 03/06/19 23:32 Intake & Output 03/06/19 03/06/19 03/07/19 11:59 23:59 11:59 Intake Total 1008.5 / 4473.5 3465 / 4473.5 957.5 / 957.5 Output Total 850 / 1240 390 / 1240 1000 / 1000 Balance 158.5 / 3233.5 3075 / 3233.5 -42.5 / -42.5 Weight 121 lb 14.65 oz 119 lb 11.376 oz Intake: IV 1008.5 / 3753.5 2745 / 3753.5 957.5 / 957.5 Oral 720 / 720 Output: Urine 850 / 1210 360 / 1210 1000 / 1000 Estimated Blood Loss 30 / 30 Other: Urine Color Pale Light Margarita Yellow Yellow Urine Appearance Clear Clear Clear Emesis Description None Laboratory Results WBC 7.85 k/cumm (4.4-10.8) D 03/07/19 06:40 RBC 3.46 m/cumm (4.00-5.20) L 03/07/19 06:40 Hgb 10.2 g/dL (12.0-15.5) L 03/07/19 06:40 Hct 32.3 % (36.0-46.0) L 03/07/19 06:40 MCV 93.4 fL (80-95) 03/07/19 06:40 MCH 29.5 pg (27.0-33.0) 03/07/19 06:40 MCHC 31.6 g/dL (32.0-36.0) L 03/07/19 06:40 RDW 13.7 % (11.7-14.6) 03/07/19 06:40 Plt Count 199 x1000/uL (130-400) 03/07/19 06:40 MPV 10.4 fL (8.0-11.0) 03/07/19 06:40 Immature Gran % 0.3 % 03/07/19 06:40 Neutrophils % 65.0 03/07/19 06:40 Lymphocytes % 13.4 03/07/19 06:40 Monocytes % 14.3 03/07/19 06:40 Eosinophils % 6.6 03/07/19 06:40 Basophils % 0.4 03/07/19 06:40 Absolute Neutrophils 5.10 k/cumm (1.2-6.7) 03/07/19 06:40 Absolute Lymphocytes 1.05 k/cumm (1.2-3.4) L 03/07/19 06:40 Absolute Monocytes 1.12 k/cumm (0.11-0.7) H 03/07/19 06:40 Absolute Eosinophils 0.52 k/cumm (0.0-0.7) 03/07/19 06:40 Absolute Basophils 0.03 k/cumm (0.0-0.2) 03/07/19 06:40 PT 10.4 sec (9.3-11.0) 03/05/19 23:05 INR 1.0 (0.9-1.1) 03/05/19 23:05 APTT 20.9 sec (21.0-31.4) L 03/05/19 23:05 Sodium 143 mmol/L (136-145) 03/07/19 06:40 Potassium 3.9 mmol/L (3.5-5.1) 03/07/19 06:40 Chloride 106 mmol/L (98-107) 03/07/19 06:40 Carbon Dioxide 31.6 mmol/L (21.0-32.0) 03/07/19 06:40 Anion Gap 5.4 mmol/L (3-11) 03/07/19 06:40 BUN 11 mg/dL (7-18) D 03/07/19 06:40 Creatinine 0.64 mg/dL (0.55-1.02) 03/07/19 06:40 Estimated GFR/1.73 m2 >= 60.00 (mL/min/1.73m2) 03/07/19 06:40 Glucose 107 mg/dL (74-106) H 03/07/19 06:40 Calcium 7.9 mg/dL (8.5-10.1) L 03/07/19 06:40 Magnesium 1.7 mg/dL (1.8-2.4) L 03/07/19 06:40 Total Bilirubin 0.3 mg/dL (0.2-1.0) 03/05/19 23:05 AST 17 U/L (15-37) 03/05/19 23:05 ALT 19 U/L (14-59) 03/05/19 23:05 Alkaline Phosphatase 131 U/L (46-116) H 03/05/19 23:05 Total Protein 8.0 g/dL (6.4-8.2) 03/05/19 23:05 Albumin 4.0 g/dL (3.4-5.0) 03/05/19 23:05 Urine Color Yellow (Yellow) 03/06/19 00:35 Urine Clarity Clear (Clear) 03/06/19 00:35 Urine pH 6.0 (5-8) 03/06/19 00:35 Ur Specific [place] >= 1.030 (1.005-1.025) H 03/06/19 00:35 Urine Protein Negative mg/dL (Negative) 03/06/19 00:35 Urine Ketones Trace mg/dL (Negative) H 03/06/19 00:35 Urine Blood Trace-intact (Negative) H 03/06/19 00:35 Urine Nitrite Negative (Negative) 03/06/19 00:35 Urine Bilirubin Negative (Negative) 03/06/19 00:35 Urine Urobilinogen 0.2 EU/dL (Up TO 0.2) 03/06/19 00:35 Ur Leukocyte Esterase Negative (Negative) 03/06/19 00:35 Urine RBC 0-2 HPF (0-2) 03/06/19 00:35 Urine WBC Negative HPF (0-5) 03/06/19 00:35 Ur Epithelial Cells Rare HPF (Negative) 03/06/19 00:35 Urine Crystals Negative HPF (Negative) 03/06/19 00:35 Urine Bacteria Rare HPF (Negative) 03/06/19 00:35 Urine Casts Negative LPF (Negative) 03/06/19 00:35 Urine Mucus Negative (Negative) 03/06/19 00:35 Ur Culture Indicated? No 03/06/19 00:35 Urine Glucose Negative mg/dL (Negative) 03/06/19 00:35 Patient ABO/Rh O Positive 03/05/19 23:05 Antibody Screen Negative 03/05/19 23:05 Objective Narrative Objective Narrative: Recent vital signs concerning for pulmonary embolism with tachycardia to the 110s and oxygen saturation low 90s on 2 L
[2019-03-07] MEDS: MAGNESIUM SULFATE 2 GM/50 ML BAG IVPB (09:27)
--- NOTE | 2019-03-07 10:14 | DI.CT_ITS ---
EXAM: CT CHEST PE CTA CLINICAL HISTORY: Tachycardia, oxygen dependent, mets, TECHNIQUE: Post IV contrast PE protocol. Axial CT angiography was performed with multi-slice acquisition and multi-planar and/or 3D reconstruc tions. COMPARISON: CT CHEST/ABD/PEL W from 03/06/2019 FINDINGS: There is no evidence of pulmonary emboli or aortic dissection or aneurysm. There are small bilatera l pleural effusions, right greater than left. There is a minimal pericardial effusion. There are bi lateral pulmonary masses again noted, seen on the previous day's examination. Adenopathy is also see n. There may be an element of mild pulmonary edema. Bone lesions consistent with metastases are aga in noted, particularly T12. IMPRESSION: Multiple pulmonary masses as demonstrated previously. No evidence of pulmonary emboli. There are sm all bilateral pleural effusions and trace pericardial effusion. There may be mild pulmonary edema.
[2019-03-07] MEDS: Omnipaque 350 MG/ML 100 ML BTL IJ (10:22)
--- NOTE | 2019-03-07 10:39 | DI.VRAD_ITS ---
PROCEDURE INFORMATION: Exam: CT Angiography Chest With Contrast Exam date and time: 03/07/2019 10:15 AM Age: 69 years old Clinical indication: Other: Tachycardia, o2 dependant, mets; Patient HX: Recent diagnosis of CA TECHNIQUE: Imaging protocol: Computed tomographic angiography of the chest with intravenous contrast. 3D rendering: MIP and/or 3D reconstructed images were created by the technologist. Radiation optimization: All CT scans at this facility use at least one of these dose optimization techniques: automated exposure control; mA and/or kV adjustment per patient size (includes targeted exams where dose is matched to clinical indication); or iterative reconstruction. Other contrast: Route: Catheter, Material: omnipaque 350, Volume: 60ml; COMPARISON: XR PORTABLE CHEST AP 03/06/2019 1:20 AM FINDINGS: Pulmonary arteries: No evidence of pulmonary embolus to the segmental level. Aorta: No aneurysm of the aorta. No dissection of the aorta. Lungs: 4.7 mm nodule in the left upper lobe. 5.4 mm nodule in the left lower lobe. 6.4 mm nodule in the right lower lobe. 5.7 mm nodule in the right lower lobe. Additional nodules scattered in the lung sepulveda consistent with pulmonary metastasis. Consolidation in both lower lobes right worse than left and in the medial aspect of the right upper lobe may represent atelectasis or pneumonia. Mild panlobular emphysematous changes Pleural space: Small bilateral pleural effusions right greater than left Heart: Small pericardial effusion Coronary artery calcifications may indicate coronary artery disease. Mediastinum: Soft tissue density in the right hilum 2.3 by 1.8 cm may represent part of the lung cancer. Subcarinal soft tissue density may represent part of the lung cancer. Lymph nodes: 17 x 9 mm node in the anterior mediastinum Bones/joints: 2 cm lytic lesion in T12. Series 9, image 55. Soft tissues: Unremarkable. IMPRESSION: 1. No evidence of pulmonary embolus to the segmental level. 2. No aneurysm of the aorta. 3. No dissection of the aorta. 4. 2 cm lytic lesion in T12. Series 9, image 55. Consistent with metastatic disease 5. 4.7 mm nodule in the left upper lobe. 5.4 mm nodule in the left lower lobe. 6.4 mm nodule in the right lower lobe. 5.7 mm nodule in the right lower lobe. Additional nodules scattered in the lung sepulveda consistent with pulmonary metastasis. 6. Consolidation in both lower lobes right worse than left and in the medial aspect of the right upper lobe may represent atelectasis or pneumonia. 7. Soft tissue density in the right hilum 2.3 by 1.8 cm may represent part of the lung cancer. Subcarinal soft tissue density may represent part of the lung cancer. Dictated and Authenticated by: Manuel Meyers MD. Ordering:DONNIE Malave MD
--- NOTE | 2019-03-07 12:02 | IN_ITS ---
Date of service: 03/07/19 Time of Service: 11:00 PT Notes Visit Reasons: RIGHT FEMUR FRACTURE Inpatient Physical Therapy Evaluation Date: 03/07/19 Referring Doctor: Devante Montenegro MD PT Orders: PT CONSULT: s/p Ortho surgery Precautions: WBAT on Right Patient Profile/Admitting Diagnosis: Orders received for this 69-year-old formally healthy female. Patient states that she has been having back pain for the last 4 to 5 months. She states that she went to take a step 2 nights ago and instantly felt a pop sensation through her right leg and sharp stabbing immediate pain. She was taken to the emergency department where x-rays confirmed a midshaft femur fracture. Patient underwent significant biopsy and testing to rule out or in pathologic metastatic carcinoma with fracture. Patient had been having some difficulty breathing and is placed on oxygen a CAT scan was performed as well as ultrasound to screen for DVT or PE which as of this writing has been negative so far. Patient was treated with an intramedullary nailing through the femur with open reduction internal fixation. Orders have been made for physical therapy services for weightbearing as tolerated. PMHX: Recent evidence of lung nodule, recent evidence of metastatic bone cancer Social History/Home Situation: Patient lives at home with her in [place] for she has been using a cane for ambulation Equipment Owned/DME: Straight cane Subjective: Patient states she has a lot going on right now to process and think about and there is some pain through the right leg Objective: Patient lying supine in bed with head of bed 30 degrees, IV placement in right upper extremity, she is on 1 L of oxygen delivered via nasal cannula, Wood catheter in place Mental Status: Well oriented alert pleasant female who appears of stated age and most definitely frustrated with current state of her medical condition Pain: 6 out of 10 ranging to 10 out of 10 through the course of this visit ROM: Right Upper Extremity: Within normal limits Left Upper Extremity: Within normal limits Right Lower Extremity: Hip flexion to 90 degrees, knee flexion to 90 degrees, hip extension to 0 and knee extension to 0, ankle range of motion within normal limits Left Lower Extremity: Within functional limits Strength: Right Upper Extremity: Grossly 5 out of 5 Left Upper Extremity: Grossly 5 out of 5 Right Lower Extremity: Hip flexion 3 out of 5, quads 3 out of 5, hamstrings 3 out of 5, dorsiflexion plantarflexion 5 out of 5 Left Lower Extremity: Grossly 5 out of 5 Bed Mobility/Transfers: Patient requires minimum assistance from supine to sitting on edge of bed mainly for surgical lines and also for placement and as sist with the right lower extremity Supine-sit: Min assist Sit-stand: Patient was not able to be guided through stand she states that she would like to try tomorrow sit to supine: Patient is placed back in the supine under moderate assistance Gait: Not attempted Balance: Static Sitting: Good Dynamic Sitting: Fair Static Standing: Not attempted Dynamic Standing: Not attempted Special Tests: Mobility Limitations Standardized Measure [facility] AM-PAC 6 clicks Basic Mobility Inpatient Short Form: Raw Score: 15 standardized Score 39.45: CMS Score: 57.7% CMS Modifier: CK Informed Consent/Education: Patient instructed in purpose of PT consult and plan of care. ASSESSMENT: Patient is a 69-year-old female with a history of great physical health Admitted with pathologic fracture with possible metastases to the bone through the right femur with postop intramedullary nailing Patient presents with the following impairment level findings: Deficits in range of motion to the right lower extremity, inability to bear weight, inability for stand, ambulation intolerance Pt will benefit from skilled therapy intervention in order to remedy their functional limitations and restore patient to a more appropriate and stable functional level. Impairments are contributing to the following functional limitations: AMPAC score 57.7% Patient is assessed as a moderate complexity initial evaluation [id number] based on the following: History: see above Examination: see above Presentation: Evolving Decision Making: Based on impact at 57.7% Goals: Goals X1 week 1. Supine-Sit independent 2. Sit-Supine independent 3. Sit-Stand contact-guard assist into front wheel walker 4. Stand-Sit contact-guard assist in front wheel walker 5. Bed-Chair contact-guard assist with front wheel walker 6. Gait up to 10 feet contact-guard assist with front wheel walker Plan of Care/Treatment Plan: 1-2x/day, 7 days/week x 1 week. Plan of care has been reviewed with the PHYSICAL EDUCATION AIDE providing the service under Physical Therapy direction. Initiate Physical Therapy intervention for strengthening, bed mobility, transfers, gait, stairs, balance training, use of assistive device. DISCHARGE RECOMMENDATIONS: It is hoped that patient is able to complete her standing options with minimal assistance to enable home transfer in the care of her . If patient unable to stand with minimal assistance the possibility of a mcfp placement may need to be evaluated TREATMENT CODE/TIME: Moderate complexity initial evaluation [id number] 40 minutes of direct billable care, 1100 thru 1140 [facility]
--- NOTE | 2019-03-07 12:31 | DI.US_ITS ---
EXAM: US EXTREMITY VENOUS BI CLINICAL HISTORY: r/o DVT, pod 1, mets with tachycardia and oxgyen. TECHNIQUE: Lower extremity venous ultrasound performed using grayscale, color-flow, and spectral Dop pler analysis. COMPARISON: No exams were available for comparison FINDINGS: The common femoral, femoral and popliteal veins demonstrate normal compressibility, augmentation, and color Doppler. The posterior tibial veins are patent. The saphenous vein appears free of thrombus. No Bob's cyst or hematoma is seen. IMPRESSION: No evidence of DVT.
--- NOTE | 2019-03-07 12:58 | DI.VRAD_ITS ---
PROCEDURE INFORMATION: Exam: US Duplex Lower Extremity Veins Exam date and time: 03/07/2019 12:51 PM Age: 69 years old Clinical indication: Swelling (edema) of limb; Lower extremity, bilateral; Prior surgery; Surgery date: Post-operative (0-2 days); Surgery type: RT femur fracture TECHNIQUE: Imaging protocol: Real-time duplex ultrasound of the Lower Extremities with 2-D jessica scale, color Doppler flow and spectral waveform analysis with image documentation. Complete exam focused on the bilateral lower extremity veins. COMPARISON: No relevant prior studies available. FINDINGS: Right deep veins: Unremarkable. The common femoral, femoral, proximal profunda femoral and popliteal veins are patent without thrombus. Normal Doppler waveforms. Normal compressibility and/or augmentation response. Right superficial veins: Saphenofemoral junction is patent without thrombus. Left deep veins: Unremarkable. The common femoral, femoral, proximal profunda femoral and popliteal veins are patent without thrombus. Normal Doppler waveforms. Normal compressibility and/or augmentation response. Left superficial veins: Saphenofemoral junction is patent without thrombus. Soft tissues: Unremarkable. IMPRESSION: No acute findings. No evidence of deep vein thrombosis. Dictated and Authenticated by: Manuel Meyers MD. Ordering:DONNIE Malave MD
--- NOTE | 2019-03-07 13:43 | PGE_ITS ---
Date of Service Date of service: 03/07/19 Time of Service: 13:43 Assessment and Plan Assessment and plan (1) Pathological fracture of femur in neoplastic disease: Start date: 03/07/19 Start time: 13:51 Status: Acute Assessment and plan: POD 1. Feeling better. Pain controlled. Initial concern for PE as she was tachy in 110-[address] chest r/o PE. U/S bilateral LE negative for DVT. There is some findings suggestive of atelectasis or pneumonia. ICS given. Encouraged to use. Will hold off on antbx at this time. Will look for other infectious causes. Qualifiers: Encounter type: initial encounter Laterality: right Qualified Code(s): M84.551A - Pathological fracture in neoplastic disease, right femur, initial encounter for fracture (2) Hypoxia: Start date: 03/07/19 Start time: 13:55 Status: Acute Assessment and plan: Requiring 1 l oxygen with saturation 88-92%. On admission saturation was 95-99%. PE r/o, r/o other sources of hypoxia. ICS. Lung sounds clear diminished. No crackles. wheezing or rales. Continue to monitor. (3) Right lower lobe lung mass: Start date: 03/07/19 Start time: 13:58 Status: Acute Assessment and plan: Once her femur fracture stabilized then a decision will need to be made about the best approach to diagnosing her primary cancer. Given her smoking history and evidence of COPD and the lung mass and multiple adrian ng nodules on her CT scan the most likely primary source is lung cancer with bony mets. If the patient wishes to pursue work-up that an outpatient bronchoscopy can be arranged for tissue diagnosis. (4) Lung nodule, multiple: Start date: 03/07/19 Start time: 13:58 Status: Acute Assessment and plan: As above (5) Bone metastases: Start date: 03/07/19 Start time: 13:58 Status: Acute Assessment and plan: Continue narcotic analgesics of her bone pain. Palliative to see patient. At this time patient does not want to pursue any further work up for cancer. She does not want home health either per conversation between patient and Dr. Avendaño. Not taking much pain medication. Will trial low dose roxicodone if she needs it. Above case discussed with Dr. Mazariegos who is in agreement. Subjective Subjective Patient reports: no new complaints Interval history since last seen: Feels better today, though she is hypoxic requiring 1 L from baseline admission. On admission she 95-99% oxygen now from 88-92%. Work up for PE and DVT done given high risk due to mets. CTA negative for PE however consolidation in both lower lobes, right worse than left and in medial aspect may represent atelectasis or pneumonia at this time. There are multiple nodules and metastatic disease seen. Will hold on antbx at this time. No cough or sputum. Will have use ICS, continue to monitor. Exam Narrative Exam Narrative: Thin elderly female sitting up in bed awake, alert and oriented. HEENT is unremarkable. Neck is supple nontender without JVD or thyromegaly. Carotid pulses are strong but with bilateral bruits. Lungs are clear to auscultation anteriorly with prolonged expiratory phase. Requiring oxygen at this time Heart is regular rate and rhythm with a soft systolic ejection murmur over the aortic outflow tract. No thrill heave or gallop. Abdomen is soft and nontender without palpable masses. She has well-healed scar from her previous aortobifemoral bypass. RLE with drsg c/d/i. PPPx2. No erythema, edema or clubbing to bilateral extremities. Objective Objective Clinical Data: Abnormal lab results 03/07/19 03/07/19 Range/Units 06:40 06:40 RBC 3.46 L (4.00-5.20) m/cumm Hgb 10.2 L (12.0-15.5) g/dL Hct 32.3 L (36.0-46.0) % MCHC 31.6 L (32.0-36.0) g/dL Absolute Lymphocytes 1.05 L (1.2-3.4) k/cumm Absolute Monocytes 1.12 H (0.11-0.7) k/cumm Glucose 107 H (74-106) mg/dL Calcium 7.9 L (8.5-10.1) mg/dL Magnesium 1.7 L (1.8-2.4) mg/dL Vital Signs Temperature 37.5 C 03/07/19 10:44 Temperature Source Temporal Artery Scan 03/07/19 10:44 Pulse 95 H 03/07/19 10:44 Pulse Rhythm Regular 03/07/19 09:41 Pulse 82 03/06/19 04:30 Respiratory Rate 18 03/07/19 10:44 Respiratory Effort Non-Labored 03/07/19 09:41 Respiratory Depth Normal 03/07/19 09:41 Respiratory Pattern Normal 03/06/19 08:00 Blood Pressure 146/73 H 03/07/19 10:44 Blood Pressure Mean 82 03/06/19 04:01 Blood Pressure Position Sitting 03/05/19 22:41 Pulse Oximetry 90 L 03/07/19 11:57 Respiratory End-tidal CO2 38 03/06/19 15:55 Oxygen Delivery Method Nasal Cannula 03/07/19 11:57 Oxygen Flow Rate 1 03/07/19 11:57 Pain Level 1 03/07/19 10:00 Comment 03/06/19 23:32 Intake & Output 03/06/19 03/07/19 03/07/19 23:59 11:59 23:59 Intake Total 3465 / 4473.5 1007.5 / 1007.5 Output Total 390 / 1240 1000 / 1650 650 / 1650 Balance 3075 / 3233.5 7.5 / -642.5 -650 / -642.5 Weight 54.3 kg Intake: IV 2745 / 3753.5 1007.5 / 1007.5 Oral 720 / 720 Output: Urine 360 / 1210 1000 / 1650 650 / 1650 Estimated Blood Loss 30 Other: Urine Color Light Margarita Yellow Yellow Straw Urine Appearance Clear Clear Clear Emesis Description None Laboratory Results WBC 7.85 k/cumm (4.4-10.8) D 03/07/19 06:40 RBC 3.46 m/cumm (4.00-5.20) L 03/07/19 06:40 Hgb 10.2 g/dL (12.0-15.5) L 03/07/19 06:40 Hct 32.3 % (36.0-46.0) L 03/07/19 06:40 MCV 93.4 fL (80-95) 03/07/19 06:40 MCH 29.5 pg (27.0-33.0) 03/07/19 06:40 MCHC 31.6 g/dL (32.0-36.0) L 03/07/19 06:40 RDW 13.7 % (11.7-14.6) 03/07/19 06:40 Plt Count 199 x1000/uL (130-400) 03/07/19 06:40 MPV 10.4 fL (8.0-11.0) 03/07/19 06:40 Immature Gran % 0.3 % 03/07/19 06:40 Neutrophils % 65.0 03/07/19 06:40 Lymphocytes % 13.4 03/07/19 06:40 Monocytes % 14.3 03/07/19 06:40 Eosinophils % 6.6 03/07/19 06:40 Basophils % 0.4 03/07/19 06:40 Absolute Neutrophils 5.10 k/cumm (1.2-6.7) 03/07/19 06:40 Absolute Lymphocytes 1.05 k/cumm (1.2-3.4) L 03/07/19 06:40 Absolute Monocytes 1.12 k/cumm (0.11-0.7) H 03/07/19 06:40 Absolute Eosinophils 0.52 k/cumm (0.0-0.7) 03/07/19 06:40 Absolute Basophils 0.03 k/cumm (0.0-0.2) 03/07/19 06:40 PT 10.4 sec (9.3-11.0) 03/05/19 23:05 INR 1.0 (0.9-1.1) 03/05/19 23:05 APTT 20.9 sec (21.0-31.4) L 03/05/19 23:05 Sodium 143 mmol/L (136-145) 03/07/19 06:40 Potassium 3.9 mmol/L (3.5-5.1) 03/07/19 06:40 Chloride 106 mmol/L (98-107) 03/07/19 06:40 Carbon Dioxide 31.6 mmol/L (21.0-32.0) 03/07/19 06:40 Anion Gap 5.4 mmol/L (3-11) 03/07/19 06:40 BUN 11 mg/dL (7-18) D 03/07/19 06:40 Creatinine 0.64 mg/dL (0.55-1.02) 03/07/19 06:40 Estimated GFR/1.73 m2 >= 60.00 (mL/min/1.73m2) 03/07/19 06:40 Glucose 107 mg/dL (74-106) H 03/07/19 06:40 Calcium 7.9 mg/dL (8.5-10.1) L 03/07/19 06:40 Magnesium 1.7 mg/dL (1.8-2.4) L 03/07/19 06:40 Total Bilirubin 0.3 mg/dL (0.2-1.0) 03/05/19 23:05 AST 17 U/L (15-37) 03/05/19 23:05 ALT 19 U/L (14-59) 03/05/19 23:05 Alkaline Phosphatase 131 U/L (46-116) H 03/05/19 23:05 Total Protein 8.0 g/dL (6.4-8.2) 03/05/19 23:05 Albumin 4.0 g/dL (3.4-5.0) 03/05/19 23:05 Urine Color Yellow (Yellow) 03/06/19 00:35 Urine Clarity Clear (Clear) 03/06/19 00:35 Urine pH 6.0 (5-8) 03/06/19 00:35 Ur Specific [place] Gap >= 1.030 (1.005-1.025) H 03/06/19 00:35 Urine Protein Negative mg/dL (Negative) 03/06/19 00:35 Urine Ketones Trace mg/dL (Negative) H 03/06/19 00:35 Urine Blood Trace-intact (Negative) H 03/06/19 00:35 Urine Nitrite Negative (Negative) 03/06/19 00:35 Urine Bilirubin Negative (Negative) 03/06/19 00:35 Urine Urobilinogen 0.2 EU/dL (Up TO 0.2) 03/06/19 00:35 Ur Leukocyte Esterase Negative (Negative) 03/06/19 00:35 Urine RBC 0-2 HPF (0-2) 03/06/19 00:35 Urine WBC Negative HPF (0-5) 03/06/19 00:35 Ur Epithelial Cells Rare HPF (Negative) 03/06/19 00:35 Urine Crystals Negative HPF (Negative) 03/06/19 00:35 Urine Bacteria Rare HPF (Negative) 03/06/19 00:35 Urine Casts Negative LPF (Negative) 03/06/19 00:35 Urine Mucus Negative (Negative) 03/06/19 00:35 Ur Culture Indicated? No 03/06/19 00:35 Urine Glucose Negative mg/dL (Negative) 03/06/19 00:35 Patient ABO/Rh O Positive 03/05/19 23:05 Antibody Screen Negative 03/05/19 23:05
[2019-03-07] MEDS: Enoxaparin 40 MG/0.4 ML SYR SC (14:33)
[2019-03-07] MEDS: oxyCODONE 5 MG TAB PO (17:37)
--- NOTE | 2019-03-07 19:15 | PDOC.CMPRO ---
- If Service Date Differs Date of service: 03/07/19 Time of Service: 19:15 Care Management Progress Note S/O: Olya was sitting up in bed when CM met with her. Her [id number] was present at the time. Olya was very pleasant and engaged readily in conversation, smiling frequently. She denied having much pain and stated that she did not feel she would want any services at home. Dr. Avendaño saw her and Olya indicated to her that she is not inclined to undergo aggressive treatment for her newly diagnosed metastatic disease. The conversation with CM centered around transportation home which is scheduled for tomorrow. Olya is concerned that the trip will be painful and options were discussed. It was decided that she would wait to see how she manages with PT before deciding how she wishes to transport. A: Olya is a very pleasant 69 yeqar old woman admitted on 03/06/19 with a pathological fracture of her right femur P: Olya will go home with no new services. Mode of transportation to be determined. She will follow up with her surgeon and PCP. It is unclear if she will meet with Oncology. CM will continue to support patient, family and discharge planning needs.
--- NOTE | 2019-03-07 19:43 | W.PALLCONSUL ---
Date of service: 03/07/19 History of Present Illness History of Present Illness Chief Complaint: admitted with pathological fracture of right femur, suspected lung ca Narrative: Olya, as Kayleigh prefers to be called, was admitted with a pathological fracture and is suspected to have a widely metastatic lung adenocarcinoma. Dr Whipple, her orthopedist, biospied her bone at the time of his surgical repair. Final result pending. I initially spoke with her Darrin at first as she was in radiology receiving an US for possible DVT. This was negative. Her Darrin reports that she's been in pain for quite a while, at least since October. He says she was told that she had sciatica but her pain kept getting worse. It really ramped up recently. By Saturday the , she could barely walk due to the intensity of her pain. Darrin tried to convince her to go to the ER but she told him she thought'It's going to be ok tomorrow. She's been walking with a cane due to the pain. She was in the living room on the day of admission and suddenly fell. She knew her leg was broken, Darrin reports. She thinks it broke before she fell. She's lost about 12 lbs in the last 2 months. She's been sleeping more. She hasn't had a dramatic decrease in her appetite. Her pain is her biggest problem and has been for at least 5 months. Darrin says that his doesn't fully understand that she has cancer yet; she's still in shock. When she woke up this morning, she told him that she thought she had a bad dream, that someone told her she had cancer, but she didn't believe it. Consults Consult date: 03/07/19 Requesting physician: Robb Mazariegos Assessment and Plan Assessment and plan (1) Hypoxia: Status: Chronic Assessment and plan: would accept home oxygen if she qualifies (2) Bone metastases: Status: Chronic Assessment and plan: not in pain at the time of my visit discussed options for pain management expressed no worry about her granddaughter's addiction being triggered with opioids in the house recommend low dose fentanyl patch due to low side effect profile lower risk of diversion but if this is too much (the lowest patch is roughly 48 mg /day Morphine equivalent) would recommend oxycodone or morphine, whichever she prefers (3) Lung nodule, multiple: Status: Chronic Assessment and plan: I discussed treatment options generally with Darrin more than with Olya. I explained chemo vs immunotherapy. I strongly recommended that Olya and Darrin go for an oncology consult at least, with no expectation that Olya will accept treatment. She is opposed to any treatment at this time, but I think her reasons need to be explored. Before we could do this, her daughter and her family arrived. Conversation should be continued at later date. 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 She wants to go home MARCUS. 2. She wants tools to keep her pain better controlled. Doesn't want to go through the pain she had prior to her fracture. 3. Hesitant to meet with oncology. Says she is against treatment. Recommended a one-time consult with the oncology team so she can make an informed decision. 4. Will follow up with PCP after discharge. Note that she is refusing HH, which I think would be a help. She lives in [facility], out of the [facility] home visit area. Would benefit from further [facility] care interventions. IF she changes her mind and chooses treatment, will be glad to see her at the [facility] office or at [facility]. 5. She does need a COLST form, to be filled out the sooner the better. She is listed as FULL CODE, but her preferences are more in keeping with DNR.DNI. Review of Systems Constitutional Constitutional: Reports body ache(s), Reports daytime sleepiness, Reports fatigue, Reports weakness and Reports weight loss Eyes Eyes: Reports requires corrective lenses ENT Ears, Nose, Mouth, and Throat: Reports hoarseness and Reports disequilibrium (due to her abnormal gait) Cardiovascular Cardiovascular: Reports rapid heart rate, Reports dyspnea and Reports dyspnea on exertion Respiratory Respiratory: Reports dyspnea and Reports dyspnea on exertion Comments: no cough, no hemoptysis, per Gastrointestinal Gastrointestinal: Reports constipation Genitourinary Genitourinary: Reports urinary incontinence (with coughing) Musculoskeletal Musculoskeletal: Reports abnormal gait, Reports back pain, Reports deformity (of leg when she broke it), Reports arthralgias and Reports muscle weakness Neurologic Neurologic: Reports abnormal gait, Reports disequilibrium (due to her abnormal gait) and Reports weakness Psychiatric Psychiatric: Reports difficulty concentrating Endocrine Endocrine: Reports fatigue Hematologic/Lymphatic Hematologic/Lymphatic: Reports easy bruising [facility] Medical History (Updated 03/08/19 @ 09:[address]ño MD) Atherosclerotic peripheral vascular disease (Acute) Ex-smoker (Acute) Femur fracture, right (Acute) Goals of care, counseling/discussion (Chronic) No active medical problems (Acute) Osteoarthritis (Chronic) Palliative care patient (Chronic) Uncontrolled pain (Chronic) prior to admission Feb 2019 Surgical History S/P aorto-bifemoral bypass surgery (Chronic) Family History (Updated 03/08/19 @ 09:[address] Avendaño MD) Mother , age 88 Lung cancer Father , age 94; hit by a car and killed when crossing street to buy cigarettes; not close to [place] Pedestrian injured in traffic accident involving motor vehicle Smoker Parent-child estrangement nec Sister No problems noted. Brother , age 64 No problems noted. Brother , age 74 No problems noted. Brother , age 93 No problems noted. Son No problems noted. Daughter No problems noted. Granddaughter Substance abuse Grandson No problems noted. 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[employer], [employer] Pets and animals: Yes Pets and animals: dog(s) Sexually active: Yes Do you think of yourself as: straight/heterosexual Current gender identity: female What is your relationship status?: How often do you talk on the phone with friends or family?: three or more times per week How often do you get together with friends or relatives?: once per week How often do you attend faith or pentecostal services?: decline to answer Do you belong to any clubs or organized social groups?: no Panel score (0-1 are the most socially isolated patients): 2 What type of physical activity do you participate in: none and sedentary lifestyle Kayleigh/Jehovah'S Witness: No preference Special kayleigh needs: No Seatbelt use: always Drive intox or ride w/intox route driver salesperson: No Do you feel safe at home: Yes Do you feel safe in your relationship?: Yes Additional Social history: Lives with second , Darrin. x 37 yrs. Loves her 2 dogs. Used to have horses. Loves animals. Doesn't want HH. Lives in [facility]. says he is not squeamish; he can take care of his . Granddaughter, Arlene, age 27, lives with them. She is in recovery from opioid addiction. Exam Narrative Exam Narrative: Thin female sitting up in bed awake, alert and oriented. HEENT is unremarkable. Neck is supple nontender without JVD. LAD or thyromegaly. Carotid pulses with bilateral bruits. Lungs are clear to auscultation anteriorly with prolonged expiratory phase. Requiring oxygen at this time Heart is regular rate and rhythm with a soft systolic ejection murmur. Abdomen is soft and nontender without palpable masses. She has well-healed scar from her previous aortobifemoral bypass. RLE with drsg c/d/i. Painful if touched, prefers to move on her own, Neuro: a and o x 3; able to move independently from stretcher to bed. Moves slowly. Psych: appears a bit shell-shocked, still processing information. Says her inclination is to NOT pursue any cancer treatment. Results Last Vital Signs Temp 99.0 F 03/07/19 16:05 Pulse 101 H 03/07/19 16:05 Resp 17 01/25/20 16:05 BP 149/70 H 03/07/19 16:05 Pulse Ox 91 L 03/07/19 16:05 Labs Result diagrams: 03/08/19 07:00 03/08/19 07:00 Labs: Laboratory Results - last 24 hr 03/07/19 03/07/19 06:40 06:40 WBC 7.85 D RBC 3.46 L Hgb 10.2 L Hct 32.3 L MCV 93.4 MCH 29.5 MCHC 31.6 L RDW 13.7 Plt Count 199 MPV 10.4 Immature Gran % 0.3 Neutrophils % 65.0 Lymphocytes % 13.4 Monocytes % 14.3 Eosinophils % 6.6 Basophils % 0.4 Absolute Neutrophils 5.10 Absolute Lymphocytes 1.05 L Absolute Monocytes 1.12 H Absolute Eosinophils 0.52 Absolute Basophils 0.03 Sodium 143 Potassium 3.9 Chloride 106 Carbon Dioxide 31.6 Anion Gap 5.4 BUN 11 D Creatinine 0.64 Estimated GFR/1.73 m2 >= 60.00 Glucose 107 H Calcium 7.9 L Magnesium 1.7 L
[2019-03-08] VITALS (10 sets, daily range): BP systolic 109–125; BP diastolic 53–71; PULSE 88–109; RESP 16–18; TEMP 36.5–37.3; O2SAT 91–97
[2019-03-08] MEDS: Normal Saline Flush 10 ML SYR IVP (00:52)
[2019-03-08] MEDS: HYDROmorphone 2 MG/ML VIAL IV (00:53)
[2019-03-08 07:15] LABS: HCT 33.3 % (36.0-46.0); HGB 10.7 g/dL (12.0-15.5); Mean Corp. HGB Concentration 32.1 g/dL (32.0-36.0); Mean Corpuscular Hemoglobin 29.6 pg (27.0-33.0); Mean Platelet Volume 10.4 fL (8.0-11.0); Platelet Count 230 x1000/uL (130-400); RBC 3.62 m/cumm (4.00-5.20); RBC Distribution Width 13.4 % (11.7-14.6); White Blood Cell Count 10.31 k/cumm (4.4-10.8)
[2019-03-08 07:27] LABS: Anion Gap 6.4 mmol/L (3-11); BUN 9 mg/dL (7-18); CO2 30.6 mmol/L (21.0-32.0); CREATININE 0.54 mg/dL (0.55-1.02); Calcium 8.4 mg/dL (8.5-10.1); Chloride 102 mmol/L (98-107); Glucose 121 mg/dL (74-106); Potassium 3.9 mmol/L (3.5-5.1); Sodium 139 mmol/L (136-145)
[2019-03-08] MEDS: oxyCODONE 5 MG TAB PO ×3 (10:15→22:21)
--- NOTE | 2019-03-08 10:45 | PT.INTREAT ---
Date of service: 03/08/19 Time of Service: 10:45 PT Notes Visit Reasons: RIGHT FEMUR FRACTURE 03/08/19 SUBJECTIVE: Kayleigh reporting minimal discomfort in supine position. Upon movement her pain level increases. OBJECTIVE: Agreeable to PT treatment x2 today. TRANSFERS Supine to sit: Min A Sit so supine: Mod A x2 Sit to stand: min A Stand to sit: Min A GAIT Device: FWW Weight bearing: AT R Assist: Min A Distance: 3' to chair, 6' later in the morning. Deviation: Cues for walker management THEREX: Gentle LE muscle setting and ROM activities. See flow sheet. ASSESSMENT: Progressing with her functional mobility. Fatigues very quickly with her UE's utilizing FWW. She requires verbal cues for technique utilizing her walker. PLAN: Continue to mobilize as she is able to tolerate. Treatment time: 40 minutes [id number] Greer Mahan, TAX COMPLIANCE REPRESENTATIVE
--- NOTE | 2019-03-08 13:12 | W.PM.PROGNOT ---
Date of Service Date of service: 03/08/19 Time of Service: 13:12 Assessment and Plan Assessment and plan (1) Pathological fracture of femur in neoplastic disease: Start date: 03/08/19 Start time: 13:14 Status: Resolved Assessment and plan: POD 2. Feeling better. Progressing forward Pain controlled. Breathing appears improved. Weaning off oxygen. Not able to full wt bear today. Will work with PT tomorrow and possible dc home tomorrow with PT. Follow up with Orhto in office in 2-3 weeks. Wood dcd today, will trial voiding. Qualifiers: Encounter type: initial encounter Laterality: right Qualified Code(s): M84.551A - Pathological fracture in neoplastic disease, right femur, initial encounter for fracture (2) Hypoxia: Start date: 03/08/19 Start time: 13:16 Status: Chronic Assessment and plan: Improving. Weaning off oxygen today. Continue ICS. (3) Right lower lobe lung mass: Start date: 03/08/19 Start time: 13:16 Status: Chronic Assessment and plan: Once her femur fracture stabilized then a decision will need to be made about the best approach to diagnosing her primary cancer. Given her smoking history and evidence of COPD and the lung mass and multiple lung nodules on her CT scan the most likely primary source is lung cancer with bony mets. If the patient wishes to pursue work-up that an outpatient bronchoscopy can be arranged for tissue diagnosis. (4) Lung nodule, multiple: Start date: 03/08/19 Start time: 13:16 Status: Chronic Assessment and plan: As above (5) Bone metastases: Start date: 03/08/19 Start time: 13:16 Status: Chronic Assessment and plan: Continue narcotic analgesics of her bone pain. Palliative to see patient. At this time patient does not want to pursue any further work up for cancer. She does not want home health either per conversation between patient and Dr. Avendaño. Not taking much pain medication. Will trial low dose roxicodone if she needs it. Above case discussed with Dr. Mazariegos who is in agreement. Subjective Subjective Patient reports: no new complaints Interval history since last seen: Progressing forward. Would like another day of PT as she does not feel she is strong enough to go home yet. Refusing rehab and home services. Possible discharge tomorrow after PT. Breathing better, weaning off O2. Exam Narrative Exam Narrative: Thin elderly female sitting up in chair, alert and oriented. HEENT is unremarkable. Neck is supple nontender without JVD or thyromegaly. Carotid pulses are strong but with bilateral bruits. Lungs are clear to auscultation anteriorly with prolonged expiratory phase. Requiring oxygen at this time Heart is regular rate and rhythm with a soft systolic ejection murmur over the aortic outflow tract. No thrill heave or gallop. Abdomen is soft and nontender without palpable masses. She has well-healed scar from her previous aortobifemoral bypass. RLE with drsg c/d/i. PPPx2. No erythema, edema or clubbing to bilateral extremities. Objective Objective Clinical Data: Abnormal lab results 03/08/19 03/08/19 Range/Units 07:00 07:00 RBC 3.62 L (4.00-5.20) m/cumm Hgb 10.7 L (12.0-15.5) g/dL Hct 33.3 L (36.0-46.0) % Creatinine 0.54 L (0.55-1.02) mg/dL Glucose 121 H (74-106) mg/dL Calcium 8.4 L (8.5-10.1) mg/dL Vital Signs Temperature 36.7 C 03/08/19 07:55 Temperature Source Tympanic 03/08/19 07:55 Pulse 88 03/08/19 07:55 Pulse Rhythm Regular 03/08/19 09:06 Pulse 82 03/06/19 04:30 Respiratory Rate 17 03/08/19 07:55 Respiratory Effort 03/08/19 09:06 Respiratory Depth Normal 03/08/19 09:06 Respiratory Pattern Normal 03/08/19 09:06 Blood Pressure 123/68 03/08/19 07:55 Blood Pressure Mean 82 03/06/19 04:01 Blood Pressure Position Sitting 03/05/19 22:41 Pulse Oximetry 92 L 03/08/19 13:00 Respiratory End-tidal CO2 38 03/06/19 15:55 Oxygen Delivery Method Room Air 03/08/19 13:00 Oxygen Flow Rate 0 03/08/19 13:00 Pain Level 3 03/08/19 10:15 Comment 03/06/19 23:32 Intake & Output 03/07/19 03/08/19 03/08/19 23:59 11:59 23:59 Intake Total 1602.5 / 3192.5 0 / 0 Output Total 1650 / 2650 875 / 875 Balance -47.5 / 542.5 -875 / -875 Weight 54.4 kg Intake: IV 582.5 / 2172.5 Oral 1020 / 1020 0 / 0 Output: Urine 1650 / 2650 875 / 875 Other: Urine Color Yellow Light Margarita Urine Appearance Clear Clear Laboratory Results WBC 10.31 k/cumm (4.4-10.8) D 03/08/19 07:00 RBC 3.62 m/cumm (4.00-5.20) L 03/08/19 07:00 Hgb 10.7 g/dL (12.0-15.5) L 03/08/19 07:00 Hct 33.3 % (36.0-46.0) L 03/08/19 07:00 MCV 92.0 fL (80-95) 03/08/19 07:00 MCH 29.6 pg (27.0-33.0) 03/08/19 07:00 MCHC 32.1 g/dL (32.0-36.0) 03/08/19 07:00 RDW 13.4 % (11.7-14.6) 03/08/19 07:00 Plt Count 230 x1000/uL (130-400) 03/08/19 07:00 MPV 10.4 fL (8.0-11.0) 03/08/19 07:00 Immature Gran % 0.3 % 03/07/19 06:40 Neutrophils % 65.0 03/07/19 06:40 Lymphocytes % 13.4 03/07/19 06:40 Monocytes % 14.3 03/07/19 06:40 Eosinophils % 6.6 03/07/19 06:40 Basophils % 0.4 03/07/19 06:40 Absolute Neutrophils 5.10 k/cumm (1.2-6.7) 03/07/19 06:40 Absolute Lymphocytes 1.05 k/cumm (1.2-3.4) L 03/07/19 06:40 Absolute Monocytes 1.12 k/cumm (0.11-0.7) H 03/07/19 06:40 Absolute Eosinophils 0.52 k/cumm (0.0-0.7) 03/07/19 06:40 Absolute Basophils 0.03 k/cumm (0.0-0.2) 03/07/19 06:40 PT 10.4 sec (9.3-11.0) 03/05/19 23:05 INR 1.0 (0.9-1.1) 03/05/19 23:05 APTT 20.9 sec (21.0-31.4) L 03/05/19 23:05 Sodium 139 mmol/L (136-145) 03/08/19 07:00 Potassium 3.9 mmol/L (3.5-5.1) 03/08/19 07:00 Chloride 102 mmol/L (98-107) 03/08/19 07:00 Carbon Dioxide 30.6 mmol/L (21.0-32.0) 03/08/19 07:00 Anion Gap 6.4 mmol/L (3-11) 03/08/19 07:00 BUN 9 mg/dL (7-18) 03/08/19 07:00 Creatinine 0.54 mg/dL (0.55-1.02) L 03/08/19 07:00 Estimated GFR/1.73 m2 >= 60.00 (mL/min/1.73m2) 03/08/19 07:00 Glucose 121 mg/dL (74-106) H 03/08/19 07:00 Calcium 8.4 mg/dL (8.5-10.1) L 03/08/19 07:00 Magnesium 2.0 mg/dL (1.8-2.4) 03/08/19 07:00 Total Bilirubin 0.3 mg/dL (0.2-1.0) 03/05/19 23:05 AST 17 U/L (15-37) 03/05/19 23:05 ALT 19 U/L (14-59) 03/05/19 23:05 Alkaline Phosphatase 131 U/L (46-116) H 03/05/19 23:05 Total Protein 8.0 g/dL (6.4-8.2) 03/05/19 23:05 Albumin 4.0 g/dL (3.4-5.0) 03/05/19 23:05 Urine Color Yellow (Yellow) 03/06/19 00:35 Urine Clarity Clear (Clear) 03/06/19 00:35 Urine pH 6.0 (5-8) 03/06/19 00:35 Ur Specific [place] >= 1.030 (1.005-1.025) H 03/06/19 00:35 Urine Protein Negative mg/dL (Negative) 03/06/19 00:35 Urine Ketones Trace mg/dL (Negative) H 03/06/19 00:35 Urine Blood Trace-intact (Negative) H 03/06/19 00:35 Urine Nitrite Negative (Negative) 03/06/19 00:35 Urine Bilirubin Negative (Negative) 03/06/19 00:35 Urine Urobilinogen 0.2 EU/dL (Up TO 0.2) 03/06/19 00:35 Ur Leukocyte Esterase Negative (Negative) 03/06/19 00:35 Urine RBC 0-2 HPF (0-2) 03/06/19 00:35 Urine WBC Negative HPF (0-5) 03/06/19 00:35 Ur Epithelial Cells Rare HPF (Negative) 03/06/19 00:35 Urine Crystals Negative HPF (Negative) 03/06/19 00:35 Urine Bacteria Rare HPF (Negative) 03/06/19 00:35 Urine Casts Negative LPF (Negative) 03/06/19 00:35 Urine Mucus Negative (Negative) 03/06/19 00:35 Ur Culture Indicated? No 03/06/19 00:35 Urine Glucose Negative mg/dL (Negative) 03/06/19 00:35 Patient ABO/Rh O Positive 03/05/19 23:05 Antibody Screen Negative 03/05/19 23:05
[2019-03-08] MEDS: Enoxaparin 40 MG/0.4 ML SYR SC (13:52)
--- NOTE | 2019-03-08 16:46 | CMPROGNOTE_ITS ---
- If Service Date Differs Date of service: 03/08/19 Time of Service: 16:46 Care Management Progress Note S/O: Olya had family visiting for much of the day. She was sitting up in bed when CM met with her. She was experiencing a lot of pain at that time as she had just been OOB to the bathroom. Olya stated that she still does not feel quite ready to go home. She has not been able to mobilize without a great deal of pain and needs to work with PT a bit more tomorrow. Her nurse was applying ice packs to her surgical leg and that seemed to be helping. A: Olya is a very pleasant 69 year old woman admitted on 03/06/19 with a pathological fracture of her right femur P: Olya will go home with no new services. Mode of transportation to be determined. She will follow up with her surgeon and PCP. It is unclear if she will meet with Oncology. CM will continue to support patient, family and dischar ge planning needs.
--- NOTE | 2019-03-08 19:51 | NUR.NOTE ---
Nursing Note: Pt was assisted by BELT NOTCHER to use toilet to void. Reported that family very much involved on the care, They are very particular with any movements rendered to pt,, like not trusting staff.Advised for next voiding or be out of bed to be with 2 staff for safety.Pt was medicated with oxycodone for pain rated 2-3. while on bed. Instructed to performed deep breathing exercise and well tolerated, Latest O2 Sat 96% at [facility].
[2019-03-09 03:29] VITALS: BP 109/64; PULSE 101; RESP 18; TEMP 36.7; O2SAT 92
[2019-03-09 07:15] VITALS: BP 120/75; PULSE 100; RESP 18; TEMP 36.5; O2SAT 90
[2019-03-09] MEDS: oxyCODONE 5 MG TAB PO ×2 (08:04→14:03)
--- NOTE | 2019-03-09 09:20 | PT.INTREAT ---
Date of service: 03/09/19 Time of Service: 09:22 PT Notes Visit Reasons: RIGHT FEMUR FRACTURE 03/09/19 SUBJECTIVE: Kayleigh stating she is feeling better today. She is hopeful to go home today. Her is here today and he notes that they are getting a wheel chair for home. OBJECTIVE: Pt supine in bed. Agreeable to PT treatment. TRANSFERS Supine to sit: SBA Sit to supine: Min A Sit to stand: CGA Stand to sit: CGA GAIT Device: FWW Weight bearing: AT R Assist: CGA Distance: 10' Deviation: Cues for walker management THEREX: Review HEP for light muscle setting and ROM exercises. See flow sheet. ASSESSMENT: Progressing with her mobility. Her pain seems better managed today. Her and her feel confident in going home and they have a wheel chair to assist in transferring pt from the car to the house with ramp set up. PLAN: Continue per POC. Treatment time: 30' [id number] Greer Mahan PTA
[2019-03-09] MEDS: Ondansetron 4 MG/2 ML VIAL IVP (09:47)
[2019-03-09 10:48] VITALS: O2SAT 92
[2019-03-09 11:24] VITALS: BP 128/72; PULSE 95; RESP 18; TEMP 36.7; O2SAT 90
--- NOTE | 2019-03-09 11:59 | W.PM.DS.N ---
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: Status: Resolved (2) Hypoxia: Status: Chronic (3) Right lower lobe lung mass: Status: Chronic (4) Lung nodule, multiple: Status: Chronic (5) Bone metastases: Status: Chronic Discharge Plan Disposition Patient Disposition: HOME W/HOME HEALTH SERVICE Condition: Fair Discharge Details Chief Complaint: Orthopedic Clinical Impression: Femur fracture, right Reason For Visit: RIGHT FEMUR FRACTURE Admit Date/Time: 03/06/19 02:49 Admit Provider: Robb Mazariegos Attending Provider: Robb Mazariegos Primary Care Provider: Florentin Elliott [facility] Hospital Course: This is a 69 female with past medical history of peripheral artery disease s/p ABF (1997) who was diagnosed with sciatica in October but developed worsening low back pains this past week and was evaluated and treated for her sciatica here in [facility] ER on Saturday03/03/2019 and discharged home on medrol dose pack and referred to physical therapy and outpatient appointment with Dr. Amaral. After returning home, while she was walking across her kitchen floor with assistance of cane in her left hand when she slipped and grabbed the kitchen counter w/ her right hand but did not hit the ground. Her right leg slid out from under her and she felt sharp pains in the mid thigh and she was unable to walk on the leg. Her and her granddaughter were unable to move her so EMS was called. X-ray reveals a comminuted mid femur fracture. work up in the ED was concerning for a pathological fracture and is suspected to have a widely metastatic lung adenocarcinoma. She did undergo a palliative care consult while hospitalized. She underwent an ORIF of her femur fracture and post operative has done well. Dr Whipple, her orthopedist, biopsied her bone at the time of his surgical repair. Final result pending.. She is eating and drinking and bowels and bladder functioning, her pain is well managed on oral medications. She will receive home PT at discharge for home discharge evaluation. she will follow up with pcp on further outpatient work up and treatment as recommended. She will need orthopedic follow up 2-3 weeks after discharge. time spent on discharge: greater than 35 min Home Meds and New Rx's Prescriptions: New acetaminophen [Tylenol] 325 mg Tablet 650 mg PO Q4H PRN PRNQty: 0 RF: 0 polyethylene glycol 3350 17 gram Powder In Packet 17 g PO DAILY PRN PRN (Reason: Constipation) Qty: 0 RF: 0 docusate sodium [Colace] 100 mg Capsule 100 mg PO TID PRN PRNQty: 60 RF: 0 oxycodone 5 mg Tablet 5 mg PO Q6H PRN PRNQty: 24 RF: 0 enoxaparin [Lovenox] 40 mg/0.4 mL Syringe 40 mg subcut Q24H Qty: 30 RF: 0 ondansetron 4 mg tablet,disintegrating 4 mg PO Q6H PRN (Reason: nausea and vomiting) Qty: 10 RF: 0 Continued cetirizine [Zyrtec] 10 mg Tablet 10 mg PO DAILY RF: 0 Discontinued aspirin 325 mg Tablet 325 mg PO DAILY AM RF: 0 methylprednisolone [Medrol (Rodriguez)] 4 mg tablets,dose pack See Rx Instructions .ROUTE .COMPLEX Qty: 21 RF: 0 Discharge Instructions Instructions: ORIF of a Leg Fracture (DC) Referrals: Florentin Elliott [Primary Care Provider] - 03/16/19 1:20 pm (one week discharge appointment) Devante Montenegro MD [ [facility] STAFF PHYSICIAN] - (Follow-up outpatient with Dr. Montenegro at [facility] orthopedics in 2-3 weeks) Activity:: Activity as Tolerated Equipment/Supplies:: W/C Diet:: As Tolerated Discharge Orders Discharge Orders: Discharge Order (Routine); Ordered 03/09/19 Ordered By: Monica Perez DS: Summary Status at Discharge Functional status at discharge: uses cane/walker Overall status at discharge: patient is progressing back to baseline Mental Status: mental status grossly normal Speech and Movement: speech and movement normal Mood: congruent mood Affect: normal affect Exam Const General: cooperative, healthy appearing, comfortable, no acute distress and well groomed Nutritional Appearance: average body habitus Orientation: alert, awake and oriented x3 HENMT Head: normal to inspection, normocephalic and atraumatic Mouth: oral mucosae normal Resp Effort & Inspection: normal respiratory effort Auscultation: clear to auscultation bilaterally Cardio Rate: regular rate Rhythm: regular rhythm GI Inspection: normal to inspection Palpation: soft Auscultation: normal bowel sounds Skin Lesions: lesion noted (surgical wound) Rashes: no rashes Neuro General: alert, awake and oriented x3 Cognition: normal cognition Gait: gait assisted Extrem General: no pedal edema (does have improved edema to right thigh) Psych Mental Status: mental status grossly normal Speech and Movement: speech and movement normal Mood: congruent mood Affect: normal affect DS: Data Vitals/I&O Vitals and I&O: Vital Signs Temperature 36.7 C 03/09/19 11:24 Temperature Source Tympanic 03/09/19 11:24 Pulse 95 H 03/09/19 11:24 Pulse Rhythm Regular 03/09/19 04:00 Pulse 82 03/06/19 04:30 Respiratory Rate 18 03/09/19 11:24 Respiratory Effort 03/09/19 04:00 Respiratory Depth Shallow 03/09/19 04:00 Respiratory Pattern Normal 03/09/19 04:00 Blood Pressure 128/72 03/09/19 11:24 Blood Pressure Mean 82 03/06/19 04:01 Blood Pressure Position Sitting 03/05/19 22:41 Pulse Oximetry 90 L 03/09/19 11:24 Respiratory End-tidal CO2 38 03/06/19 15:55 Oxygen Delivery Method Room Air 03/09/19 11:24 Oxygen Flow Rate 0 03/09/19 11:24 Pain Level 0 03/09/19 11:24 Comment 03/08/19 16:00 Intake & Output 03/08/19 03/08/19 03/09/19 11:59 23:59 11:59 Intake Total 0 / 0 720 / 720 Output Total 1175 / 1275 100 / 1275 700 / 700 Balance -1175 / -1275 -100 / -1275 Weight 54.4 kg 53.9 kg Intake: Oral 0 / 0 720 / 720 Output: Urine 1175 / 1275 100 / 1275 700 / 700 Other: Urine Color Yellow Yellow Light Margarita Urine Appearance Clear Clear Clear Urine Odor Strong Comment Per report of previous nurse Voiding Methods Bedside Commode Bedside Commode [facility] Medical History (Updated 03/08/19 @ 09:[address]ño MD) Atherosclerotic peripheral vascular disease (Acute) Ex-smoker (Acute) Femur fracture, right (Acute) Goals of care, counseling/discussion (Chronic) No active medical problems (Acute) Osteoarthritis (Chronic) Palliative care patient (Chronic) Uncontrolled pain (Chronic) prior to admission Feb 2019 Surgical History S/P aorto-bifemoral bypass surgery (Chronic) Family History (Updated 03/08/19 @ 09:[address] MD) Mother , age 88 Lung cancer Father , age 94; hit by a car and killed when crossing street to buy cigarettes; not close to [place] Pedestrian injured in traffic accident involving motor vehicle Smoker Parent-child estrangement nec Sister No problems noted. Brother , age 64 No problems noted. Brother , age 74 No problems noted. Brother , age 93 No problems noted. Son No problems noted. Daughter No problems noted. Granddaughter Substance abuse Grandson No problems noted. Social History (Updated 03/08/19 @ 09:37 by vAe Avendaño MD) Smoking/Tobacco Use Status: Former Tobacco Use Alcohol Intake: current Alcohol Intake frequency: holidays/special occasions only Alcohol type: wine Drug use: Never Substance use type: does not use Caregiver/Support person: No Household members: spouse and other Details: granddaughter Housing: house Pets and animals: Yes Pets and animals: dog(s) Sexually active: Yes Do you think of yourself as: straight/heterosexual Current gender identity: female What is your relationship status?: How often do you talk on the phone with friends or family?: three or more times per week How often do you get together with friends or relatives?: once per week How often do you attend bahai or orthodoxy services?: decline to answer Do you belong to any clubs or organized social groups?: no Panel score (0-1 are the most socially isolated patients): 2 What type of physical activity do you participate in: decline to answer Duration: decline to answer Frequency: decline to answer Kayleigh/Buddhist: No preference Special kayleigh needs: No Seatbelt use: always Drive intox or ride w/intox sprinkling truck driver: No Do you feel safe at home: Yes Do you feel safe in your relationship?: Yes
--- NOTE | 2019-03-09 14:10 | PDOC.HHF2F ---
Home Health Certification Home Health Certification: 1. Encounter Date and Reason I certify that JAVAN MARTIN was seen by Monica Perez on 03/09/19 and that I had a [id number] encounter with this patient that meets the physician face to face encounter requirements. 2. Clinical Findings Supporting Skilled Need and Homebound Status I certify that home health services are medically necessary, include either intermittent nursing home and/or physical/speech therapy, and that this patient is homebound in that absences from the home require considerable and taxing effort and are infrequent or of short duration, or are attributable to the need to receive medical care. [X] (a) Attached documentation from encounter provides clinical findings supporting skilled need and homebound status (including what assistance patient requires to leave the home). The encounter with the patient was in whole, or in part, for the following medical condition, which is the primary reason for home health care: RIGHT FEMUR FRACTURE Physical Therapy: routine evaluation and treatment, safe re-ambulation and strengthening after pathologic fracture and ORIF of right femur. Homebound: patient is unable to safely leave house unassisted. 3. Certification and Authentication I certify that I composed the above information based on my clinical judgement relating to this patient's medical condition and, if applicable, clinical findings communicated to me by the NPP or inpatient physician who performed the Home Health Referral. All further orders will be obtained through (Community Based Physician - PCP)
[2019-03-09] MEDS: Enoxaparin 40 MG/0.4 ML SYR SC (14:58)
--- NOTE | 2019-03-09 15:22 | CHAPLAIN ---
Kayleigh was happy to tell me that she is going home today. I had met family members previously, but not Kayleigh until today. I gave her a prayer shawl, and explained my role. A friend came to visit just as I arrived so I didn't stay long.
--- NOTE | 2019-03-09 16:05 | PT.INTREAT ---
Date of service: 03/09/19 Time of Service: 16:05 PT Notes Visit Reasons: RIGHT FEMUR FRACTURE 03/09/19 SUBJECTIVE: Kayleigh doing well this afternoon. Appears to have her pain well managed. OBJECTIVE: Agreeable to PT treatment. TRANSFERS Supine to sit: SBA Sit to stand: CGA Stand to sit: CGA GAIT Device: FWW Weight bearing: AT R Assist: CGA Distance: 5'x2 with additional 5' and stand pivot transfer to the car. ASSESSMENT: Pt transfers well to the car this afternoon. Instruct pt's and friend how to transfers out of car and into the wheel chair. They have a good understanding of this. PLAN: Pt to be discharged from inpt PT services. See discharge summary for details. Treatment time: 25' [id number] Greer Mahan PTA
--- NOTE | 2019-03-09 17:23 | CMDISCH_ITS ---
- If Service Date Differs Date of service: 03/09/19 Time of Service: 17:24 LACE Index Scoring Tool - Questions: Length of Stay (in days): 3 Acuity (Admit via E.D.?): Yes Comorbidities: Metastatic Solid Tumor E.D. Visits: 3 - Answers: Total Score: 14 Risk of Readmission: High Risk Care Management Discharge Reason for Hospitalization: Pathologic fracture of femur Discharge Plan: Olya will go home with new OT and PT. A wheelchair has been ordered through [facility] for Olya.She will [place] [facility] and her PCP. She will transport with her via private vehicle. Patient/Family Education Needs: Discharge plan, limitations, follow up plan and Ask Me Three. Services Needed at Discharge: DME Agency, Home Health Care Services
--- NOTE | 2019-03-10 16:27 | INDS_ITS ---
Date of service: 03/10/19 Time of Service: 16:27 PT Notes Visit Reasons: RIGHT FEMUR FRACTURE Inpatient Physical Therapy Discharge Summary Dates: 03/02/2019 Dates of Service: 03/07/2019 through 03/09/2019 This is a clinical summary of care provided on the duration of dates listed above. No charge was made in the completion of this documentation. Referring Doctor: Devante Montenegro MD PT Orders: PT CONSULT: s/p Ortho surgery Precautions: WBAT on Right Patient Profile/Admitting Diagnosis: Orders received for this 69-year-old formally healthy female. Patient states that she has been having back pain for the last 4 to 5 months. She states that she went to take a step 2 nights ago and instantly felt a pop sensation through her right leg and sharp stabbing immediate pain. She was taken to the emergency department where x-rays confirmed a midshaft femur fracture. Patient underwent significant biopsy and testing to rule out or in pathologic metastatic carcinoma with fracture. Patient had been having some difficulty breathing and is placed on oxygen a CAT scan was performed as well as ultrasound to screen for DVT or PE which as of this writing has been negative so far. Patient was treated with an intramedullary nailing through the femur with open reduction internal fixation. PMHX: Recent evidence of lung nodule, recent evidence of metastatic bone cancer Social History/Home Situation: Patient lives at home with her . 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 Equipment Owned/DME: Straight cane Subjective: NT Objective: NT Mental Status: NT Pain: NT ROM: Right Upper Extremity: Within normal limits Left Upper Extremity: Within normal limits Right Lower Extremity: Hip flexion to 90 degrees, knee flexion to 90 degrees, hip extension to 0 and knee extension to 0, ankle range of motion within normal limits Left Lower Extremity: Within functional limits Strength: Right Upper Extremity: Grossly 5 out of 5 Left Upper Extremity: Grossly 5 out of 5 Right Lower Extremity: Hip flexion 3 out of 5, quads 3 out of 5, hamstrings 3 out of 5, dorsiflexion plantarflexion 5 out of 5 Left Lower Extremity: Grossly 5 out of 5 Bed Mobility/Transfers: Rolling SBA Supine to sit SBA Sit to supine SBA Sit to stand CGA Stand to sit CGA Bed to chair CGA Chair to bed CGA Gait: 5 feet x 3 with CGA using F WW with WBAT on right LE. Balance: Static Sitting: Good Dynamic Sitting: Fair Static Standing: Fair Dynamic Standing: Fair ASSESSMENT: Patient is a 69-year-old female with a history of great physical health admitted with pathologic fracture with possible metastases to the bone through the right femur with postop intramedullary nailing. Patient presented with the following impairment level findings: Deficits in range of motion to the right lower extremity, inability to bear weight, inability for stand, ambulation intolerance. Patient demonstrated minimal mobility gains during this episode of care due to pain and postoperative status. Goals: Goals X1 week 1. Supine-Sit independent NOT MET 2. Sit-Supine independent NOT MET 3. Sit-Stand contact-guard assist into front wheel walker MET 4. Stand-Sit contact-guard assist in front wheel walker MET 5. Bed-Chair contact-guard assist with front wheel walker MET 6. Gait up to 10 feet contact-guard assist with front wheel walker MET DISCHARGE RECOMMENDATIONS: Patient will benefit from home health PT services in order to progress mobility level using least restrictive assistive ambulatory device, assess home safety, identify additional equipment needs, and establish a functional maintenance program that will increase ability of patient to remain at home. TREATMENT CODE/TIME: NC. Thank you very much for this referral. Bertha Saldana PT, DPT, CLT [facility] Inpatient [facility] at [facility]
== END 2019-03-09 15:50 | disposition home health service (06) | DRG 478 ==
LOC: ER 03-06 03:34 → MS 03-06 05:10
PROVIDERS: Internal Medicine; Nurse Practitioner Family; Student in an Organized Health Care Education/Training Program; Admitting Provider Internal Medicine; Emergency Provider Emergency Medicine; PCP Family Medicine; Visit Provider Internal Medicine
PROC: 0QS806Z Reposition Right Femoral Shaft with Intramedullary Internal Fixation Device, Open Approach (ICD-10-PCS; CPT 27506; principal; 2019-03-06 07:30)
DX: M84.551A Pathological fracture in neoplastic disease, right femur, initial encounter for fracture (principal); C79.51 Secondary malignant neoplasm of bone; M89.9 Disorder of bone, unspecified; R09.02 Hypoxemia; R00.0 Tachycardia, unspecified; R91.8 Other nonspecific abnormal finding of lung field; I73.9 Peripheral vascular disease, unspecified; Z95.820 Peripheral vascular angioplasty status with implants and grafts; C80.1 Malignant (primary) neoplasm, unspecified; J44.9 Chronic obstructive pulmonary disease, unspecified; Z87.891 Personal history of nicotine dependence; Z51.5 Encounter for palliative care
CPT/HCPCS: 27506; 20245; 36415; 71275; 73552; 74177; 80048; 80053; 85027; 86850; 86900; 86901; 88305; 97162; 97530; 99223; 99233; 99239; 99255; J1650; NC; 71045; 71260; 73501; 73700; 81003; 81015; 83735; 85025; 85610; 85730; 88304; 88311; 88331; 88361; 93005; 93010; 93970; J0690; J2270; J2405; J2765; J3360; J3490

== ENCOUNTER 2019-03-25 12:17 | Outpatient (CLI) | payer MEDICARE, SELFPAY ==
--- NOTE | 2019-03-25 11:11 | DI.RAD_ITS ---
EXAM: XR FEMUR RT INDICATION: Follow up. COMPARISON: XR FEMUR RT from 03/06/2019 TECHNIQUE: 2D digital imaging was performed. FINDINGS: Intramedullary gael is again noted through the right femur. There is no change in fracture or hardwa re alignment. There is increased callus formation at the fracture site.
== END 2019-03-25 12:37 ==
PROVIDERS: PCP Family Medicine; Referring Provider Family Medicine; Visit Provider Student in an Organized Health Care Education/Training Program
DX: M84.551D Pathological fracture in neoplastic disease, right femur, subsequent encounter for fracture with routine healing (principal); C79.51 Secondary malignant neoplasm of bone
CPT/HCPCS: 73552

== ENCOUNTER 2019-06-25 11:13 | Outpatient (CLI) | payer MEDICARE, SELFPAY ==
--- NOTE | 2019-06-25 09:00 | DI.RAD_ITS ---
EXAM: XR FEMUR RT CLINICAL HISTORY: Right femur fracture TECHNIQUE: COMPARISON: CR XR FEMUR RT from 03/25/2019 FINDINGS: Four views were obtained and show previous described intramedullary gael the femur transfixing mid fem oral fracture. There has been further interval healing in comparison previous examination March 14 with no change in alignment. IMPRESSION:
--- NOTE | 2019-06-25 11:45 | DI.RAD_ITS ---
EXAM: XR KNEE RT 3V AP,LAT,ADDIE CLINICAL HISTORY: post femur fracture COMPARISON: No exams were available for comparison FINDINGS: Single Merchant view shows unremarkable patellofemoral alignment.
== END 2019-06-25 11:33 ==
PROVIDERS: PCP Family Medicine; Visit Provider Student in an Organized Health Care Education/Training Program
DX: S72.91XD Unspecified fracture of right femur, subsequent encounter for closed fracture with routine healing (principal); M84.551D Pathological fracture in neoplastic disease, right femur, subsequent encounter for fracture with routine healing
CPT/HCPCS: 73552; 73562; 99214

== ENCOUNTER 2019-08-30 14:51 | Emergency (ER) | payer MEDICARE, SELFPAY ==
[2019-08-30 14:59] VITALS: BP 143/70; PULSE 86; RESP 18; TEMP 36.4; O2SAT 97
--- NOTE | 2019-08-30 15:30 | DI.US_ITS ---
EXAM: US LOWER EXTREMITY VENOUS RT CLINICAL HISTORY: swelling, pain, cancer TECHNIQUE: Right lower extremity venous ultrasound performed using grayscale, color-flow, and spectr al Doppler analysis. COMPARISON: No exams were available for comparison FINDINGS: The right common femoral, femoral and popliteal veins demonstrate normal compressibility, augmentatio n, and color Doppler. The posterior tibial veins are patent. The saphenofemoral junction is unremark able. There is no evidence of a Bob cyst. The soft tissues are unremarkable. IMPRESSION: No DVT. DATA REPOSITORY:
[2019-08-30] MEDS: Doxycycline Hyclate 100 MG CAP PO (16:06)
[2019-08-30 16:25] LABS: Abs Immature Grans 0.02 k/cumm (0.0-0.09); Absolute Eosinophil Count 0.06 k/cumm (0.0-0.7); Absolute Monocyte Count 0.65 k/cumm (0.11-0.7); Absolute Neutrophil Count 2.93 k/cumm (1.2-6.7); Eosinophils % 1.3; HCT 33.2 % (36.0-46.0); HGB 10.7 g/dL (12.0-15.5); Immature Grans % 0.4 %; Lymphocytes % 21.5; Mean Corp. HGB Concentration 32.2 g/dL (32.0-36.0); Mean Corpuscular Hemoglobin 33.5 pg (27.0-33.0); Mean Corpuscular Volume 104.1 fL (80-95); Mean Platelet Volume 9.2 fL (8.0-11.0); Monocytes % 13.9; Neutrophils % 62.9; Platelet Count 259 x1000/uL (130-400); RBC 3.19 m/cumm (4.00-5.20); RBC Distribution Width 16.2 % (11.7-14.6); White Blood Cell Count 4.66 k/cumm (4.4-10.8)
[2019-08-30 16:38] LABS: Anion Gap 9.2 mmol/L (3-11); BUN 18 mg/dL (7-18); CO2 26.8 mmol/L (21.0-32.0); CREATININE 0.76 mg/dL (0.55-1.02); Chloride 103 mmol/L (98-107); Glucose 101 mg/dL (74-106); Potassium 3.8 mmol/L (3.5-5.1); Sodium 139 mmol/L (136-145)
--- NOTE | 2019-08-30 16:52 | W.ED.GENAD ---
Discharge Plan Disposition Patient Disposition: HOME Condition: Stable Discharge Details Chief Complaint: Cellulitis Clinical Impression: Cellulitis of right lower extremity Primary Care Provider: Florentin Elliott ED Provider: Shivam Berger Home Meds and New Rx's Prescriptions: New doxycycline hyclate 100 mg tablet 100 mg PO BID Qty: 19 RF: 0 cephalexin [Keflex] 500 mg capsule 500 mg PO QID Qty: 20 RF: 0 Continued folic acid 1 mg tablet 1 mg PO DAILY Qty: 90 RF: 3 aspirin [Adult Aspirin Regimen] 81 mg tablet,delayed release (DR/EC) 81 mg PO DAILY Qty: 90 RF: 3 acetaminophen [Tylenol] 325 mg Tablet 650 mg PO Q4H PRN PRNQty: 0 RF: 0 polyethylene glycol 3350 17 gram Powder In Packet 17 g PO DAILY PRN PRN (Reason: Constipation) Qty: 0 RF: 0 docusate sodium [Colace] 100 mg Capsule 100 mg PO TID PRN PRNQty: 60 RF: 0 ondansetron 4 mg tablet,disintegrating 4 mg PO Q6H PRN (Reason: nausea and vomiting) Qty: 10 RF: 0 aspirin 325 mg Tablet 325 mg PO DAILY RF: 0 cephalexin 250 mg Capsule 250 mg PO QID RF: 0 prochlorperazine maleate 10 mg Tablet 10 mg PO PRN PRNRF: 0 Discontinued Calcium 600 + D(3) 600 mg calcium- 200 unit Capsule 2 cap PO DAILY RF: 0 Discharge Instructions Instructions: Cellulitis (ED) Additional Instructions: Please take full course of antibiotics as prescribed. Try to keep your leg elevated as much as possible. Please contact your primary care physician to arrange follow-up. Return to the ER for any worsening or new concerning symptoms. Referrals: Florentin Elliott [Primary Care Provider] - Discharge Data Discharge Date/Time-TO BE ENTERED AT DEPARTURE: 08/30/19 17:20 Medical Decision Making 69-year-old female with metastatic cancer on chemotherapy, here with right lower leg swelling, pain and erythema about the ankle. She is on day 5 of 5 course of Keflex and notes that while symptoms have improved they still persist and she was told to come to the ER for evaluation. Patient is not septic appearing. She is hemodynamically stable. I considered neutropenia. CBC reviewed and nondiagnostic. Normal white count. I considered DVT. Ultrasound the right lower extremity was interpreted by radiology, no evidence of DVT. Suspect persistent cellulitis. I will give a few more days of Keflex and also add additional coverage with doxycycline. Patient was encouraged to follow-up with her oncologist and to return for any worsening or new concerning symptoms. HPI General Mode of arrival: ambulatory. Date/Time Provider Initiated Documentation: 08/30/19 15:07. Limitations to Documentation: no limitations. Information obtained by: patient. HPI Narrative: 69-year-old female with metastatic cancer on chemotherapy, here with chief complaint of right lower leg inflammation. Patient notes swelling, pain and erythema about the ankle. Symptoms have been present for the past 1.5 weeks. Patient notes she recently completed course of Keflex and symptoms did improve but have persisted and now returning. Symptoms now moderate. No associated fever. No associated chest pain or shortness of breath. Related Data Home Medications Medication Instructions Recorded Confirmed acetaminophen [Tylenol] 650 mg PO Q4H PRN PRN #0 tab 03/09/19 08/30/19 docusate sodium [Colace] 100 mg PO TID PRN PRN #60 cap 03/09/19 08/30/19 ondansetron 4 mg PO Q6H PRN #10 tab 03/09/19 08/30/19 polyethylene glycol 3350 17 g PO DAILY PRN PRN #0 ea 03/09/19 08/30/19 aspirin 81 mg tablet,delayed 81 mg PO DAILY #90 tab 05/18/19 05/18/19 release folic acid 1 mg tablet 1 mg PO DAILY #90 tab 05/18/19 08/30/19 aspirin 325 mg PO DAILY 08/30/19 08/30/19 cephalexin 250 mg PO QID 08/30/19 08/30/19 cephalexin [Keflex] 500 mg PO QID #20 cap 08/30/19 doxycycline hyclate 100 mg PO BID #19 tab 08/30/19 prochlorperazine maleate 10 mg PO PRN PRN 08/30/19 08/30/19 Previous Rx's Medication Instructions Recorded acetaminophen [Tylenol] 650 mg PO Q4H PRN PRN #0 tab 03/09/19 docusate sodium [Colace] 100 mg PO TID PRN PRN #60 cap 03/09/19 ondansetron 4 mg PO Q6H PRN #10 tab 03/09/19 polyethylene glycol 3350 17 g PO DAILY PRN PRN #0 ea 03/09/19 aspirin 81 mg tablet,delayed 81 mg PO DAILY #90 tab 05/18/19 release folic acid 1 mg tablet 1 mg PO DAILY #90 tab 05/18/19 cephalexin [Keflex] 500 mg PO QID #20 cap 08/30/19 doxycycline hyclate 100 mg PO BID #19 tab 08/30/19 Allergies Allergy/AdvReac Type Severity Reaction Status Date / Time Opioids - Morphine Analogues AdvReac Severe nausea Verified 08/30/19 15:04 oxycodone AdvReac Mild upset Verified 08/30/19 15:04 stomach simvastatin [From Zocor] AdvReac myopathy Verified 08/30/19 15:04 General Stated Complaint: Cellulitis MITA: 4 Review of Systems All systems reviewed & are unremarkable except as noted in HPI and below Constitutional Constitutional: Reports as per HPI Integumentary/Breasts Skin/Breast: Reports as per HPI [facility] Medical History (Updated 08/30/19 @ 17:10 by Shivam Berger MD) Atherosclerosis of aorto-iliac bypass graft (Acute) bilateral Atherosclerotic peripheral vascular disease (Acute) Ex-smoker (Acute) Femur fracture, right (Acute) Goals of care, counseling/discussion (Chronic) Hyperlipidemia (Acute) No active medical problems (Acute) Osteoarthritis (Chronic) Palliative care patient (Chronic) PVD (peripheral vascular disease) (Chronic) Seasonal allergies (Acute) Uncontrolled pain (Chronic) prior to admission Feb 2019 Surgical History (Updated 04/03/19 @ 12:52 by Prisca Lopez RN) S/P aorto-bifemoral bypass surgery (Chronic) S/P tubal ligation (Acute) Family History (Updated 03/08/19 @ 09:[address] Av[address]ño MD) Mother , age 88 Lung cancer Father , age 94; hit by a car and killed when crossing street to buy cigarettes; not close to [place] Pedestrian injured in traffic accident involving motor vehicle Smoker Parent-child estrangement nec Sister No problems noted. Brother , age 64 No problems noted. Brother , age 74 No problems noted. Brother , age 93 No problems noted. Son No problems noted. Daughter No problems noted. Granddaughter Substance abuse Grandson No problems noted. 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[employer], [place] [employer] Pets and animals: Yes Pets and animals: dog(s) Sexually active: Yes Do you think of yourself as: straight/heterosexual Current gender identity: female What is your relationship status?: How often do you talk on the phone with friends or family?: three or more times per week How often do you get together with friends or relatives?: once per week How often do you attend temple or moravian services?: decline to answer Do you belong to any clubs or organized social groups?: no Panel score (0-1 are the most socially isolated patients): 2 What type of physical activity do you participate in: none and sedentary lifestyle Duration: decline to answer Frequency: decline to answer Kayleigh/Spiritism: No preference Special kayleigh needs: No Seatbelt use: always Drive intox or ride w/intox chassis driver: No Do you feel safe at home: Yes Do you feel safe in your relationship?: Yes Additional Social history: Lives with second , Darrin. x 37 yrs. Loves her 2 dogs. Used to have horses. Loves animals. Doesn't want HH. Lives in [facility]. says he is not squeamish; he can take care of his . Granddaughter, Arlene, age 27, lives with them. She is in recovery from opioid addiction. Exam Const General: cooperative and no acute distress HENMT Mouth: moist mucous membranes Eyes Sclera: normal sclerae Neck Neck: trachea midline and supple Resp Auscultation: clear to auscultation bilaterally, no rales, no rhonchi and no wheezes Cardio Jugular venous pressure: no JVD Rate: regular rate and not tachycardic Rhythm: regular rhythm Skin Rashes: rashes noted (Erythema right lower extremity right foot and ankle) Neuro General: patient alert, patient awake, patient oriented x3 and tone normal Extrem Right lower extremity: lower leg Details: erythema and non-pitting edema Psych Appearance: grossly normal Mental Status: mental status grossly normal Course Vital Signs Vital signs: Vital Signs Temperature 36.4 C L 08/30/19 14:59 Pulse 86 08/30/19 14:59 Respiratory Rate 18 08/30/19 14:59 Blood Pressure 143/70 H 08/30/19 14:59 Pulse Oximetry 97 08/30/19 14:59 Temperature 36.4 C L 08/30/19 14:59 Temperature Source Temporal Artery Scan 08/30/19 14:59 Pulse 86 08/30/19 14:59 Respiratory Rate 18 08/30/19 14:59 Respiratory Effort Non-Labored 08/30/19 15:14 Blood Pressure 143/70 H 08/30/19 14:59 Blood Pressure Position Sitting 08/30/19 14:59 Pulse Oximetry 97 08/30/19 14:59 Oxygen Delivery Method Room Air 08/30/19 14:59 Oxygen Flow Rate 0 08/30/19 14:59 Pain Level 6 08/30/19 14:59 Lab/Test Results Lab/Test Results: Laboratory Tests Range/Units 08/30/19 08/30/19 16:05 16:05 WBC (4.4-10.8) k/cumm 4.66 RBC (4.00-5.20) m/cumm 3.19 L Hgb (12.0-15.5) g/dL 10.7 L Hct (36.0-46.0) % 33.2 L MCV (80-95) fL 104.1 H MCH (27.0-33.0) pg 33.5 H MCHC (32.0-36.0) g/dL 32.2 RDW (11.7-14.6) % 16.2 H Plt Count (130-400) x1000/uL 259 MPV (8.0-11.0) fL 9.2 Immature Gran % % 0.4 Neutrophils % 62.9 Lymphocytes % 21.5 Monocytes % 13.9 Eosinophils % 1.3 Basophils % 0.0 Absolute Neutrophils (1.2-6.7) k/cumm 2.93 Absolute Lymphocytes (1.2-3.4) k/cumm 1.00 L Absolute Monocytes (0.11-0.7) k/cumm 0.65 Absolute Eosinophils (0.0-0.7) k/cumm 0.06 Absolute Basophils (0.0-0.2) k/cumm 0.00 Sodium (136-145) mmol/L 139 Potassium (3.5-5.1) mmol/L 3.8 Chloride (98-107) mmol/L 103 Carbon Dioxide (21.0-32.0) mmol/L 26.8 Anion Gap (3-11) mmol/L 9.2 BUN (7-18) mg/dL 18 Creatinine (0.55-1.02) mg/dL 0.76 Estimated GFR/1.73 m2 (mL/min/1.73m2) >= 60.00 Glucose (74-106) mg/dL 101 Calcium (8.5-10.1) mg/dL 9.0
--- NOTE | 2019-08-30 17:00 | DI.VRAD_ITS ---
PROCEDURE INFORMATION: Exam: US Duplex Right Lower Extremity Veins, Limited Exam date and time: 08/30/2019 3:42 PM Age: 69 years old Clinical indication: Pain; Leg, lower; Right; Patient HX: Ankle redness and swelling. PT has been on antibiotics for 6 days - has only noticed some improvement. TECHNIQUE: Imaging protocol: Real-time Duplex ultrasound of the Right Lower Extremity with 2-D jessica scale, color Doppler flow and spectral waveform analysis with image documentation. Limited exam was focused on the right lower extremity veins. COMPARISON: US EXTREMITY VENOUS BI 03/07/2019 12:31 PM FINDINGS: Right deep veins: Unremarkable. The common femoral, femoral, proximal profunda femoral and popliteal veins are patent without thrombus. Normal Doppler waveforms. Normal compressibility and/or augmentation response. Right superficial veins: Unremarkable. Saphenofemoral junction is patent without thrombus. Soft tissues: Unremarkable. IMPRESSION: No evidence of deep vein thrombosis. Dictated and Authenticated by: Adalberto Wilkinson MD. Ordering:TRINIDAD Langley MD
== END 2019-08-30 17:20 | disposition home or self-care (01) ==
PROVIDERS: Emergency Provider Student in an Organized Health Care Education/Training Program; PCP Family Medicine
DX: L03.115 Cellulitis of right lower limb (principal); C79.51 Secondary malignant neoplasm of bone; Z79.899 Other long term (current) drug therapy
CPT/HCPCS: 36415; 80048; 99284; 85025; 93971

== ENCOUNTER 2020-03-23 11:22 | Outpatient (CLI) | payer MEDICARE, SELFPAY ==
--- NOTE | 2020-03-23 | DI.US_ITS ---
EXAM: US LOWER EXTREMITY VENOUS RT CLINICAL HISTORY: LUNG CA, PAIN,SWELLING,REDNESS RT LEG. TECHNIQUE: Lower extremity venous ultrasound performed using grayscale, color-flow, and spectral Do ppler analysis. COMPARISON: No exams were available for comparison FINDINGS: The common femoral, femoral and popliteal veins demonstrate normal compressibility, augmentation, and color Doppler. The posterior tibial veins are patent. No saphenous vein thrombosis or other superfi cial venous thrombosis is seen. No hematoma or Bob's cyst is seen. IMPRESSION: Negative lower extremity ultrasound. No evidence of DVT. DATA REPOSITORY:
== END 2020-03-23 11:23 ==
LOC: DI 03-25 11:22
PROVIDERS: PCP Family Medicine; Visit Provider Nurse Practitioner
DX: M79.604 Pain in right leg (principal); M79.89 Other specified soft tissue disorders
CPT/HCPCS: 93971

== ENCOUNTER 2020-10-11 13:13 | Outpatient (CLI) | payer MEDICARE, SELFPAY ==
--- NOTE | 2020-10-11 13:00 | RT.EKG_ITS ---
APPROVED REPORT Exam: Resting ECG Reason for Exam: chest pain Patient Location: O HR:103 bpm ECG Measurements Heart Rate 103 AXIS NH 163 P 85 QRSd 83 QRS 81 QT 343 T 72 QTc 449 Conclusion Sinus tachycardia...rate> 99
== END 2020-10-11 13:14 | disposition home or self-care (01) ==
LOC: DI.CM 13:15
PROVIDERS: PCP Family Medicine; Visit Provider Family Medicine
DX: R07.9 Chest pain, unspecified (principal)
CPT/HCPCS: 93010

== ENCOUNTER 2020-11-08 02:33 | Outpatient (CLI) | payer MEDICARE, SELFPAY ==
--- NOTE | 2020-11-08 07:30 | DI.RAD_ITS ---
Exam(s) XR SHOULDER LT COMPLETE 2+V EXAM: XR SHOULDER LT COMPLETE 2+V CLINICAL HISTORY: Continued/worsening left shoulder pain,m25.512. TECHNIQUE: 2D digital imaging was performed of the left shoulder. Six images were obtained. AP int ernal and external, Grashey, Y-view and axillary views were obtained. COMPARISON: No exams were available for comparison FINDINGS: BONES: No acute fracture is present. No bony destructive lesion is seen. JOINTS: No dislocation present. Mild hypertrophic changes are seen at the acromioclavicular joint. T he glenohumeral joint is well maintained. SOFT TISSUE: There is calcification adjacent to the greater tuberosity consistent with calcific tendi nitis. IMPRESSION: 1. Mild degenerative changes of the AC joint. 2. Calcific tendinosis. DATA REPOSITORY: RADIATION DOSE DELIVERED:
== END 2020-11-08 02:53 ==
PROVIDERS: PCP Family Medicine; Visit Provider Nurse Practitioner Family
DX: M25.512 Pain in left shoulder (principal); M19.012 Primary osteoarthritis, left shoulder; M75.32 Calcific tendinitis of left shoulder
CPT/HCPCS: 73030

== ENCOUNTER 2020-11-29 17:19 | Outpatient (REF) | payer MEDICARE, SELFPAY | END 2020-11-29 17:20 | disposition home or self-care (01) | LOC: LBN 17:19 | PROVIDERS: PCP Family Medicine; Visit Provider Emergency Medicine | DX: L03.114 Cellulitis of left upper limb (principal) | CPT/HCPCS: 87077; 87070; 87186 ==

== ENCOUNTER 2021-04-28 13:23 | Emergency (ER) | payer MEDICARE, SELFPAY ==
[2021-04-28] VITALS (11 sets, daily range): BP systolic 148–156; BP diastolic 64–88; PULSE 100–109; RESP 18–29; TEMP 36.6; O2SAT 95–96
--- NOTE | 2021-04-28 13:15 | RT.EKG_ITS ---
APPROVED REPORT Exam: Resting ECG Reason for Exam: DIZZINESS Patient Location: E HR:105 bpm ECG Measurements Heart Rate 105 AXIS OR 153 P 80 QRSd 89 QRS 82 QT 329 T 48 QTc 437 Conclusion Incomplete analysis due to missing data in precordial lead(s) Sinus tachycardia...rate> 99 sinus tachycardia, normal axis, motion artifact
--- NOTE | 2021-04-28 13:45 | DI.MRI_ITS ---
Exam(s) MR BRAIN WO/W EXAM: MR BRAIN WO/W CLINICAL HISTORY: dizzy/R weakness, lung ca with know mets to Brain. TECHNIQUE: Multiplanar multisequence MRI was performed. COMPARISON: No exams were available for comparison FINDINGS: MR examination of the brain was performed according to the usual protocol with additional post contra st T1 weighted axial and coronal imaging and MP rage imaging. 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 There is an enhancing lesi on of the potts radiata on the left with flattening of the adjacent left lateral ventricle and midli ne shift to the right of about 3 millimeters., The lesion measures roughly 19 millimeters in greatest diameter with marked surrounding edema and low signal is present at this site on susceptibility weig hted imaging consistent with microhemorrhage. There are 2 other enhancing lesions, 1 in the basal ga nglia on the right and the other basal ganglia on the left. These do not show significant mass effec t or evidence of hemorrhage. Diffusion-weighted imaging is within normal limits. No gross leptomeni ngeal enhancement seen. The orbital structures appear intact as does the pituitary. Normal flow void noted in [id number] is vasculature. IMPRESSION: Multiple intracranial enhancing lesions consistent with metastasis as described above, the largest is in the potts radiata on the left and measures about 3 cm in diameter with flattening of the left la teral ventricle and 3 millimeter midline shift to the right. Note is also made of low signal in to vertebral body, possibility of metastatic lesion not excluded. Correlation with CT or MR of the cervical spine suggested. DATA REPOSITORY:
--- NOTE | 2021-04-28 13:45 | RT.EKG_ITS ---
APPROVED REPORT Exam: Resting ECG Reason for Exam: SOB Patient Location: E HR:105 bpm ECG Measurements Heart Rate 105 AXIS NM 151 P 86 QRSd 86 QRS 84 QT 316 T 59 QTc 418 Conclusion Sinus tachycardia...rate> 99 sinus tachycardia, normal axs, non ischemic
[2021-04-28 14:13] LABS: Abs Immature Grans 0.04 10^3/uL (0.0-0.06); Absolute Basophil Count 0.01 10^3/uL (0.0-0.2); Absolute Lymphocyte Count 0.44 10^3/uL (1.2-3.4); Absolute Monocyte Count 0.17 10^3/uL (0.1-0.8); Absolute Neutrophil Count 8.81 10^3/uL (1.2-6.7); Basophils % 0.1; HCT 42.9 % (36.0-46.0); HGB 13.8 g/dL (11.2-15.7); Immature Grans % 0.4; Lymphocytes % 4.6; MCH 31.9 pg (27.0-33.0); MCHC 32.2 % (32.0-36.0); MCV 99.3 fL (80-95); MPV 9.4 fL (8.0-11.0); Monocytes % 1.8; Neutrophils % 93.1; Nucleated RBC 0 %; Platelet Count 197 10^3/uL (130-400); RBC 4.32 10^6/uL (3.93-5.22); RDW 12.8 % (11.7-14.6); RDW-SD 47.3 fL; WBC 9.47 10^3/uL (4.4-10.8)
[2021-04-28] MEDS: Normal Saline 500 ML IV (14:17)
[2021-04-28] MEDS: Meclizine 25 MG TAB PO (14:17)
[2021-04-28 14:35] LABS: ALT 21 U/L (14-59); AST 12 U/L (15-37); Albumin 3.9 g/dL (3.4-5.0); Alkaline Phosphatase 58 U/L (46-116); Anion Gap 8.5 mmol/L (3-11); BUN 29 mg/dL (7-18); Bilirubin, Total 0.3 mg/dL (0.2-1.0); CO2 29.5 mmol/L (21.0-32.0); CREATININE 1.5 mg/dL (0.55-1.02); Calcium 9.8 mg/dL (8.5-10.1); Chloride 102 mmol/L (98-107); Estimated GFR 34.13 (mL/min/1.73m2); Glucose 183 mg/dL (74-106); Magnesium 2.3 mg/dL (1.8-2.4); Potassium 3.7 mmol/L (3.5-5.1); Sodium 140 mmol/L (136-145); TSH (W/Ref FT4) 0.16 uIU/mL (0.36-3.74); Total Protein 7.4 g/dL (6.4-8.2); Troponin I < 50 ng/L (<or=60)
[2021-04-28 14:50] LABS: FREE T4 0.85 ng/dL (0.76-1.46)
[2021-04-28] MEDS: Normal Saline Flush 10 ML SYR IVP (14:53)
[2021-04-28] MEDS: Gadoterate meglumine 20 ML VIAL 11 ML IVP (14:53)
[2021-04-28 15:54] LABS: Bilirubin Negative (Negative); Blood Negative (Negative); Clarity Clear (Clear); Glucose 100 mg/dL (Negative); Ketones Negative (Negative); Leukocyte Esterase Negative (Negative); Nitrite Negative (Negative); Specific Gravity 1.015 (1.005-1.025); Urobilinogen 0.2 EU/dL (Up TO 0.2)
--- NOTE | 2021-04-28 16:27 | W.ED.GENAD ---
Discharge Plan Disposition Patient Disposition: HOME Condition: Serious Discharge Details Clinical Impression: Brain metastases, Lung cancer Primary Care Provider: Tomas Gomez ED Provider: Ananya Lema Home Meds and New Rx's Prescriptions: Continued prednisone 20 mg tablet 40 mg PO DAILY 0RF Rx Instructions: 20 mg for 5 days, then 10 mg for 5 days, then 5mg until f[place] [facility] [place]. -hb cetirizine [Zyrtec] 10 mg tablet 10 mg PO DAILY PRN0RF calcium citrate-vitamin D3 [Citracal + D Maximum] 315 mg-6.25 mcg (250 unit) tablet 2 tab PO DAILY 0RF acetaminophen [Tylenol] 325 mg Tablet 650 mg PO Q4H PRN PRNQty: 0 0RF aspirin 325 mg Tablet 325 mg PO DAILY 0RF Discharge Instructions Additional Instructions: take 40 mg of your prednisone until you see your oncologist please have them review your MRI images on Saturday and decide on a plan for treatment return immediately should you have new or worsening complaints do not drive, climb ladders, or participate in activities at height Referrals: Tomas Gomez MD [Primary Care Provider] - Discharge Data Discharge Date/Time-TO BE ENTERED AT DEPARTURE: 04/28/21 18:28 Medical Decision Making MRI Brain (per Dr Dey discussion and interpretation): Multiple intracranial enhancing lesions consistent with metastasis as described above, the largest is in the potts radiata on the left and measures about 3 cm in diameter with flattening of the left lateral ventricle and 3 millimeter midline shift to the right. Note is also made of low signal in to vertebral body, possibility of metastatic lesion not excluded.? Correlation with CT or MR of the cervical spine suggested. Diagnostic labs rdo not show acute change Patient ambulatory steady gait at time of reassessment, alert, oriented and request discharge home I reviewed MRI findings with neurosurgeon on-call at [facility] where patient is currently managed by oncology and Dr. Khan does not recommend emergent treatment but does recommend radiation oncology consultation expedited I did specifically discuss the edema and patient's change in the past 8 days and he does not believe need for transfer to [facility] at this time necessary Patient has family is able to monitor her and they feel comfortable discharge home at this time, she does in fact have an appointment scheduled with her oncologist on Saturday and will review radiation for treatment of these lesions She will continue on the 40 mg of prednisone daily to help with symptom She will return immediately should she have new or worsening complaints She is fully alert, oriented, of decisional capacity and I reviewed all findings with patient son who is in room, , and family were in the car and they were alone. Decision Patient was discharged home with steady gait in care of family I also reviewed whether or not this MRI would necessitate seizure prophylaxis and neurosurgery did not think it was indicated at this time Patient and family have not reported any seizure activity Patient is instructed to review all findings with her oncologist on Saturday Medical Records Medical records reviewed: Yes I reviewed the patient's medical records. Lab Data Lab results reviewed: Yes I reviewed the patient's lab results. HPI General Date/Time Provider Initiated Documentation: 04/28/21 13:37. HPI Narrative: 71-year-old female with history of lung cancer to the brain aortobifemoral bypass surgery presents with report of intermittent dizziness and right arm weakness for the past 8 days. Patient states her symptoms are waxing and waning. She denies history of similar symptoms prior to 8 days ago. She denies any known trauma to the affected area. She denies any change in speech. She is having difficulty writing secondary to tremor and weakness in her right hand which has been persistent but not dramatically worsening over the course of the day. She denies any headache associated. She denies any fever or chills. She denies any urinary complaints. Her last immunotherapy was a month ago. She did contact her oncologist and they recommended MRI but also to increase her prednisone to 40 mg daily at a rate reaction per her oncologist. She is been doing this for 3 days without relief in her symptoms. Denies chest pain or shortness of breath Related Data Home Medications Medication Instructions Recorded Confirmed acetaminophen 325 mg tablet 650 mg PO Q4H PRN PRN #0 tab 03/09/19 04/28/21 (Tylenol) aspirin 325 mg tablet 325 mg PO DAILY 08/30/19 04/28/21 prednisone 20 mg tablet 40 mg PO DAILY 10/21/19 03/28/21 calcium citrate 315 mg 2 tab PO DAILY tab 04/20/20 04/28/21 calcium-vitamin D3 6.25 mcg (250 unit) tablet (Citracal + Vitamin D Maximum) cetirizine 10 mg tablet (Zyrtec) 10 mg PO DAILY PRN 04/20/20 04/28/21 Previous Rx's Medication Instructions Recorded acetaminophen 325 mg tablet 650 mg PO Q4H PRN PRN #0 tab 03/09/19 (Tylenol) Allergies Allergy/AdvReac Type Severity Reaction Status Date / Time ipratropium Allergy swelling Verified 04/28/21 13:34 of eyes and nose. Opioids - Morphine Analogues AdvReac Severe nausea Verified 04/28/21 13:34 oxycodone AdvReac Mild upset Verified 04/28/21 13:34 stomach simvastatin [From Zocor] AdvReac myopathy Verified 04/28/21 13:34 General Stated Complaint: Dizzy/Sync MITA: 3 Review of Systems All systems reviewed & are unremarkable except as noted in HPI and below PFSH All Active Problems (Updated 04/03/19 @ 12:52 by Prisca Lopez RN) Brain metastases (Acute) Lung cancer (Chronic) Olecranon bursitis, left elbow (Acute) Upper back pain on left side (Acute) Cellulitis (Acute) Xerosis of skin (Acute) Chest pain (Acute) Vasomotor rhinitis (Acute) Seasonal allergies (Acute) Hyperlipidemia (Acute) Goals of care, counseling/discussion (Chronic) Femur fracture, right (Acute) Ex-smoker (Acute) Uncontrolled pain (Chronic) prior to admission Feb 2019 Palliative care patient (Chronic) Hypoxia (Chronic) Bone metastases (Chronic) Lung nodule, multiple (Chronic) Right lower lobe lung mass (Chronic) Atherosclerotic peripheral vascular disease (Acute) Osteoarthritis (Chronic) S/P aorto-bifemoral bypass surgery (Chronic) Medical History (Updated 04/28/21 @ 18:05 by NORRIS Adames) Atherosclerosis of aorto-iliac bypass graft bilateral No active medical problems PVD (peripheral vascular disease) Surgical History (Updated 04/03/19 @ 12:52 by Prisca Lopez RN) S/P tubal ligation Family History (Updated 03/08/19 @ 09:[address]ño MD) Mother , age 88 Lung cancer Father , age 94; hit by a car and killed when crossing street to buy cigarettes; not close to [place] Pedestrian injured in traffic accident involving motor vehicle Smoker Parent-child estrangement nec Sister No problems noted. Brother , age 64 No problems noted. Brother , age 74 No problems noted. Brother , age 93 No problems noted. Son No problems noted. Daughter No problems noted. Granddaughter Substance abuse Grandson No problems noted. Social History (Updated 03/08/19 @ 09:[address] Av[address]ño MD) Smoking/Tobacco Use Status: Former Tobacco Use Tobacco: How many years used: 30 Second Hand Exposure: No Smoking risk assessment performed?: Yes Alcohol Intake: current Alcohol Intake frequency: holidays/special occasions only Alcohol type: wine Drug use: Never Substance use type: does not use Caregiver/Support person: Yes Household members: spouse and other Details: granddaughter Housing: house Number of Children: 2 number of grandchildren: 2 Communication Needs: Corrective Lenses Education Level: high school Do you need help understanding health information?: Always 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[employer], [place] [employer] Pets and animals: Yes Pets and animals: dog(s) Sexually active: Yes Do you think of yourself as: straight/heterosexual Current gender identity: female What is your relationship status?: How often do you talk on the phone with friends or family?: three or more times per week How often do you get together with friends or relatives?: once per week How often do you attend latter day or yazidi services?: decline to answer Do you belong to any clubs or organized social groups?: no Panel score (0-1 are the most socially isolated patients): 2 What type of physical activity do you participate in: none and sedentary lifestyle Duration: decline to answer Frequency: decline to answer Kayleigh/Tenriism: No preference Special kayleigh needs: No Seatbelt use: always Drive intox or ride w/intox public transit trolley driver: No Do you feel safe at home: Yes Do you feel safe in your relationship?: Yes Additional Social history: Lives with second , Darrin. x 37 yrs. Loves her 2 dogs. Used to have horses. Loves animals. Doesn't want HH. Lives in [facility]. says he is not squeamish; he can take care of his . Granddaughter, Arlene, age 27, lives with them. She is in recovery from opioid addiction. Exam Const General: cooperative, comfortable and no acute distress Eyes Pupils: PERRL EOM: EOM intact bilaterally Neck Other: no carotid bruit Resp Effort & Inspection: normal respiratory effort Auscultation: clear to auscultation bilaterally Cardio Rate: regular rate Rhythm: regular rhythm GI Inspection: normal to inspection Skin General skin exam: no rashes or lesions noted Neuro General: patient alert and patient oriented x3 Speech: speech normal Gait: other (slow, steady gait ) Motor: no pronator drift Other: mild weakness noted to right arm sensation intact distally distal pulsesintact neg pronator drift neg fnf neg heel-martin Extrem General: normal to inspection Course Vital Signs Vital signs: Vital Signs Temperature 36.6 C 04/28/21 13:29 Pulse 109 H 04/28/21 13:29 Respiratory Rate 18 04/28/21 13:29 Blood Pressure 156/88 H 04/28/21 13:29 Pulse Oximetry 95 04/28/21 13:29 Temperature 36.6 C 04/28/21 13:29 Temperature Source Temporal Artery Scan 04/28/21 13:29 Pulse 105 H 04/28/21 13:45 Pulse 106 H 04/28/21 14:30 Respiratory Rate 25 H 04/28/21 14:30 Respiratory Effort 04/28/21 13:44 Respiratory Depth Normal 04/28/21 13:44 Respiratory Pattern Normal 04/28/21 13:44 Blood Pressure 148/64 H 04/28/21 13:45 Blood Pressure Mean 83 04/28/21 13:45 Blood Pressure Position Sitting 04/28/21 13:29 Pulse Oximetry 95 04/28/21 13:45 Oxygen Delivery Method Room Air 04/28/21 13:29 Oxygen Flow Rate 0 04/28/21 13:29 Lab/Test Results Lab/Test Results: Laboratory Tests Range/Units 04/28/21 04/28/21 04/28/21 14:00 14:00 14:00 WBC (4.4-10.8) 10^3/uL 9.47 RBC (3.93-5.22) 10^6/uL 4.32 Hgb (11.2-15.7) g/dL 13.8 Hct (36.0-46.0) % 42.9 MCV (80-95) fL 99.3 H MCH (27.0-33.0) pg 31.9 MCHC (32.0-36.0) % 32.2 RDW (11.7-14.6) % 12.8 Plt Count (130-400) 10^3/uL 197 MPV (8.0-11.0) fL 9.4 Immature Gran % 0.4 Neutrophils % 93.1 Lymphocytes % 4.6 Monocytes % 1.8 Eosinophils % 0.0 Basophils % 0.1 Nucleated RBC % % 0 Absolute Neutrophils (1.2-6.7) 10^3/uL 8.81 H Absolute Lymphocytes (1.2-3.4) 10^3/uL 0.44 L Absolute Monocytes (0.1-0.8) 10^3/uL 0.17 Absolute Eosinophils (0.0-0.7) 10^3/uL 0.00 Absolute Basophils (0.0-0.2) 10^3/uL 0.01 Sodium (136-145) mmol/L 140 Potassium (3.5-5.1) mmol/L 3.7 Chloride (98-107) mmol/L 102 Carbon Dioxide (21.0-32.0) mmol/L 29.5 Anion Gap (3-11) mmol/L 8.5 BUN (7-18) mg/dL 29 H Creatinine (0.55-1.02) mg/dL 1.5 H Estimated GFR/1.73 m2 (mL/min/1.73m2) 34.13 Glucose (74-106) mg/dL 183 H Calcium (8.5-10.1) mg/dL 9.8 Magnesium (1.8-2.4) mg/dL 2.3 Total Bilirubin (0.2-1.0) mg/dL 0.3 AST (15-37) U/L 12 L ALT (14-59) U/L 21 Alkaline Phosphatase (46-116) U/L 58 Troponin I (<or=60) ng/L < 50 Total Protein (6.4-8.2) g/dL 7.4 Albumin (3.4-5.0) g/dL 3.9 TSH (0.36-3.74) uIU/mL 0.16 L Cancelled Free T4 (0.76-1.46) ng/dL 0.85 Urine Color (Yellow) Urine Clarity (Clear) Urine pH (5-8) Ur Specific [place] (1.005-1.025) Urine Protein (Negative) mg/dL Urine Ketones (Negative) mg/dL Urine Blood (Negative) Urine Nitrite (Negative) Urine Bilirubin (Negative) Urine Urobilinogen (Up TO 0.2) EU/dL Ur Leukocyte Esterase (Negative) Urine Glucose (Negative) mg/dL Range/Units 04/28/21 15:36 WBC (4.4-10.8) 10^3/uL RBC (3.93-5.22) 10^6/uL Hgb (11.2-15.7) g/dL Hct (36.0-46.0) % MCV (80-95) fL MCH (27.0-33.0) pg MCHC (32.0-36.0) % RDW (11.7-14.6) % Plt Count (130-400) 10^3/uL MPV (8.0-11.0) fL Immature Gran % Neutrophils % Lymphocytes % Monocytes % Eosinophils % Basophils % Nucleated RBC % % Absolute Neutrophils (1.2-6.7) 10^3/uL Absolute Lymphocytes (1.2-3.4) 10^3/uL Absolute Monocytes (0.1-0.8) 10^3/uL Absolute Eosinophils (0.0-0.7) 10^3/uL Absolute Basophils (0.0-0.2) 10^3/uL Sodium (136-145) mmol/L Potassium (3.5-5.1) mmol/L Chloride (98-107) mmol/L Carbon Dioxide (21.0-32.0) mmol/L Anion Gap (3-11) mmol/L BUN (7-18) mg/dL Creatinine (0.55-1.02) mg/dL Estimated GFR/1.73 m2 (mL/min/1.73m2) Glucose (74-106) mg/dL Calcium (8.5-10.1) mg/dL Magnesium (1.8-2.4) mg/dL Total Bilirubin (0.2-1.0) mg/dL AST (15-37) U/L ALT (14-59) U/L Alkaline Phosphatase (46-116) U/L Troponin I (<or=60) ng/L Total Protein (6.4-8.2) g/dL Albumin (3.4-5.0) g/dL TSH (0.36-3.74) uIU/mL Free T4 (0.76-1.46) ng/dL Urine Color (Yellow) Yellow Urine Clarity (Clear) Clear Urine pH (5-8) 7.0 Ur Specific [place] (1.005-1.025) 1.015 Urine Protein (Negative) mg/dL Negative Urine Ketones (Negative) mg/dL Negative Urine Blood (Negative) Negative Urine Nitrite (Negative) Negative Urine Bilirubin (Negative) Negative Urine Urobilinogen (Up TO 0.2) EU/dL 0.2 Ur Leukocyte Esterase (Negative) Negative Urine Glucose (Negative) mg/dL 100
== END 2021-04-28 18:28 | disposition home or self-care (01) ==
PROVIDERS: Emergency Provider Physician Assistant; PCP Family Medicine
DX: C79.31 Secondary malignant neoplasm of brain (principal); C34.90 Malignant neoplasm of unspecified part of unspecified bronchus or lung; R42 Dizziness and giddiness; R06.02 Shortness of breath; R53.1 Weakness
CPT/HCPCS: 36415; 70553; 80053; 93005; 96360; 99284; 81003; 83735; 84439; 84443; 84484; 85025; 93010